=== PATIENT | male | born 1975 | race Caucasian/White ===

== ENCOUNTER 2016-12-13 14:23 | Emergency (ER) | payer OTHER ==
[2016-12-13] MEDS ORDERED: METHOCARBAMOL 500 MG TAB PO ONE (16:14)
[2016-12-13] MEDS ORDERED: SODIUM CHLORIDE 0.9% 1,000 ML IV ONE (16:14)
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
[2016-12-13 16:53] VITALS: RESP 18
[2016-12-13 16:53] LABS: Basophils # (A) 0.1 k/uL (0-0.2); Basophils % (A) 1 %; CHCM 33.5; Eosinophils # (A) 0.2 k/uL (0-0.7); Eosinophils % (A) 2 %; HCT 46.9 % (39.0-53.0); HDW 2.35; HGB 15.6 gm/dL (13.0-17.5); Luc # (Auto) 0.19; Luc % (Auto) 2; Lymphocytes # (A) 1.8 k/uL (1.0-4.8); Lymphocytes % (A) 23 %; MCH 31.9 pg (25.0-35.0); MCHC 33.3 g/dL (31.0-37.0); MCV 95.8 fL (80.0-100.0); Mean Platelet Volume 7.6; Monocytes # (A) 0.3 k/uL (0-1.0); Monocytes % (A) 4 %; Neutrophils # (A) 5.2 k/uL (1.3-7.7); Neutrophils % (A) 67 %; RBC 4.89 m/uL (4.30-5.90); RDW 13.7 % (11.5-15.5); WBC 7.8 k/uL (3.8-10.6)
[2016-12-13 17:04] LABS: Appearance,Urine Clear (Clear); Bilirubin,Urine Negative (Negative); Glucose,Urine (UA) Negative (Negative); Ketones,Urine Negative (Negative); Leukocyte Esterase,Urine Negative (Negative); Nitrite,Urine Negative (Negative); Protein,Urine Negative (Negative); Specific Gravity,Urine 1.012 (1.001-1.035); UA Billing (MACRO vs. MICRO) CHEM; Urobilinogen,Urine <2.0 mg/dL (<2.0)
[2016-12-13 17:05] LABS: ALT 42 U/L (21-72); AST 27 U/L (17-59); Alkaline Phosphatase 80 U/L (38-126); Anion Gap 9 mmol/L; Blood Urea Nitrogen 12 mg/dL (9-20); Carbon Dioxide 30 mmol/L (22-30); Chloride 104 mmol/L (98-107); Glucose 83 mg/dL (74-99); Magnesium 2.1 mg/dL (1.6-2.3); Non-African American GFR(MDRD) >60 (>60 ml/min/1.73 sqM); Potassium 4.1 mmol/L (3.5-5.1); Sodium 143 mmol/L (137-145); Total Bilirubin 0.5 mg/dL (0.2-1.3); Total Protein 7.5 g/dL (6.3-8.2)
--- NOTE | 2016-12-13 17:45 | US ---
EXAMINATION TYPE: US scrotum with doppler. Grayscale and color Doppler Duplex imaging performed of t kim scrotum. DATE OF EXAM: 12/13/2016 COMPARISON: NONE CLINICAL HISTORY: left testicular mass. left scrotal pain and swelling x 2 weeks EXAM MEASUREMENTS: TESTICLES: Right Testicle: 4.7 x 2.78 x 1.8 cm Left Testicle: 4.3 x 3.0 x 2.5 cm EPIDIDYMIS HEAD: Right Epididymis: 0.8 x 1.0 x 1.0 cm Left Epididymis: 2.7 x 2.4 x 2.7 cm Doppler performed to assess for testicular vascularity; good bilateral color flow and waveforms are s een. There is no evidence of testicular torsion. Presence of epididymal head cysts: in right head = 0.2 x 0.2 x 0.2cm and couple noted in left epididy mal head with larger = 2.5 x 2.5 x 2.5cm. Presence of hydroceles: in right scrotal sac = 3.3 x 2.4 x 1.4cm and in left scrotal sac = 2.2 x 2.6 x 0.6cm Presence of varicoceles: noted bilaterally as veins are > 0.25 cm in neutral position and with valsa lva maneuver IMPRESSION: No testicular torsion or mass. Large left epididymal cyst. Bilateral hydroceles. Mild neha ateral varicoceles.
[2016-12-13 18:29] VITALS: BP 130/90; PULSE 57; TEMP 98.2
== END 2016-12-13 18:29 | disposition home or self-care (01) ==
LOC: EC 14:23
DX: I86.1 Scrotal varices (principal); M62.830 Muscle spasm of back; N50.3 Cyst of epididymis; F17.200 Nicotine dependence, unspecified, uncomplicated
CPT/HCPCS: 36415; 76870; 80053; 81003; 83735; 84443; 85025; 93005; 93975; 96360; 99284

== ENCOUNTER 2019-05-17 10:20 | Inpatient (IN) | payer MEDICAID, OTHER ==
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
[2019-05-17] MEDS ORDERED: LORazepam 1 MG TAB PO STA (14:12)
[2019-05-17 14:51] LABS: Amphetamine Screen,Urine Not Detected (NotDetected); Barbiturate Screen,Urine Not Detected (NotDetected); Benzodiazepines Screen,Urine Not Detected (NotDetected); Cocaine Screen,Urine Not Detected (NotDetected); Methadone Screen, Urine Not Detected (NotDetected); Opiate Screen,Urine Not Detected (NotDetected); Oxycodone Screen, Urine Not Detected (NotDetected); Phencyclidine Screen,Urine Not Detected (NotDetected); Tricyclic Antidepressant,Urine Not Detected (NotDetected); Urn Cannabinoid Scrn Not Detected (NotDetected)
[2019-05-17] MEDS ORDERED: MAG HYDROX/AL HYDROX/SIMETH 30 ML CUP PO PRN (17:03)
[2019-05-17] MEDS ORDERED: MAGNESIUM HYDROXIDE 2,400 MG/10 ML CUP PO PRN (17:03)
[2019-05-17] MEDS: ZIPRASIDONE 20 MG VIAL IM PRN (19:13)
--- NOTE | 2019-05-17 20:14 | P.MDCNMH ---
History of Present Illness H&P Date: 05/17/19 Chief Complaint: suicidal ideation 44 year old male , denies any significant past medical history patient comes in due to suicidal ideation, he was planning on putting a gun to his head. patient admits to polysbstance abuse, with cocaine, street drugs vicodine , and alcohol, he drinks a fifth every day. He continues to work and has a supporting family, he wants to quit drug of abuse as its affecting his quality of life. he otherwise denies any mental health illness. he denies any chest pain, SOB, fever, or chills., denies any coughing , abd pain, nausea or vomiting. denies any GI bleeding currently he feels better, and denies any suicidal ideation at this time. Review of Systems full review of systems performed pertinent positive and negative as mentioned in HPI , otherwise negative Past Medical History Past Medical History: No Reported History Additional Past Medical History / Comment(s): head injury History of Any Multi-Drug Resistant Organisms: None Reported Past Surgical History: Orthopedic Surgery Additional Past Surgical History / Comment(s): fingers/hand, right shoulder, right leg, right collarbone, right ankle Past Psychological History: No Psychological Hx Reported Smoking Status: Current every day smoker Past Alcohol Use History: Abuse Past Drug Use History: Cocaine, Opiates, Prescription Drug Abuse - Past Family History family Additional Family Medical History / Comment(s): Diabetes and heart disease in his father Medications and Allergies Home Medications Medication Instructions Recorded Confirmed Type Ibuprofen [Motrin Ib] 200 - 800 mg PO Q6H PRN 05/17/19 05/17/19 History Allergies Allergy/AdvReac Type Severity Reaction Status Date / Time No Known Allergies Allergy Verified 05/17/19 17:33 Physical Exam Vitals: Vital Signs Temp Pulse Pulse Resp BP BP Pulse Ox 05/17/19 17:28 98.4 F 88 18 146/100 98 05/17/19 17:00 98.4 F 88 18 146/100 98 05/17/19 16:37 80 16 129/76 99 05/17/19 10:21 97.4 F L 71 22 139/107 100 Intake and Output 05/17/19 05/17/19 05/17/19 06:59 14:59 22:59 Other: Weight 65.771 kg 63.3 kg Constitutional: No acute distress, conversant, pleasant Eyes: Anicteric sclerae, moist conjunctiva, no lid-lag Pupils equal round reactive to light ENMT: NC/AT Oropharynx clear, no erythema, exudates Neck: Supple, FROM, no masses, or JVD No carotid bruits No thyromegaly Lungs: Clear to auscultation Clear to percussion Normal respiratory effort, no accessory muscle use Cardiovascular: Heart regular in rate and rhythm, No murmurs, gallops, or rubs No peripheral edema Abdominal: Soft Nontender, no guarding, rebound or rigidity Abdomen moving with respiration Normoactive bowel sounds No hepatomegaly, No splenomegaly No palpable mass No abdominal wall hernia noted Skin: Normal temperature, tone, texture, turgor No induration No subcutaneous nodules No rash, lesions No ulcers Extremities: No digital cyanosis No clubbing Pedal pulses intact and symmetrical Radial pulses intact and symmetrical No calf tenderness Psychiatric: Alert and oriented to person, place and time Appropriate affect fair judgement Neuro Muscles Strength 5/5 in all 4 extremities Sensation to light touch grossly present throughout Cranial nerves II-XII grossly intact No focal sensory deficits Lymphatics: no palpable cervical or supraclavicular , or inguinal lymph nodes Cranial Nerve Examination - Cranial Nerves Cranial Nerve II- Optic: Intact Cranial Nerve III- Oculomotor: Intact Cranial Nerve IV- Trochlear: Intact Cranial Nerve V- Trigeminal: Intact Cranial Nerve - Abducens: Intact Cranial Nerve VII- Facial: Intact Cranial Nerve VIII- Auditory: Intact Cranial Nerve IX- Glossopharyngeal: Intact Cranial Nerve X- Vagus: Intact Cranial Nerve XI- Accessory: Intact Cranial Nerve XII- Hypoglossal: Intact Assessment and Plan Assessment: 44-year-old male with significant past medical history presented for suicidal ideation and polysubstance abuse currently denies any medical complaints Plan: suicidal ideation Management per psych Polysubstance abuse Alcohol abuse Patient is trying to quit. Currently going through withdrawal from alcohol Continue with benzos when necessary per CIWA scale Elevated blood pressure without history of hypertension Continue to monitor closely this could be part of the autonomic dysfunction from alcohol withdrawal Blood pressure readings continues to be elevated we would consider starting patient on calcium channel salma Low risk for DVT patient is ambulatory Thank you for allowing us to participate in the care of this patient. We will follow peripherally. Do not hesitate to contact us with questions. Someone can be reached from the [facility] hospitalist group at all hours of the day at [phone].
[2019-05-17] MEDS: ACETAMINOPHEN TAB 325 MG TAB PO PRN (20:18)
[2019-05-17] MEDS: LORazepam 1 MG TAB PO PRN (20:42)
[2019-05-18 06:41] VITALS: TEMP 98.3
[2019-05-18 08:28] LABS: Basophils # (A) 0.1 k/uL (0-0.2); Basophils % (A) 1 %; Eosinophils # (A) 0.2 k/uL (0-0.7); Eosinophils % (A) 2 %; HCT 49.9 % (39.0-53.0); HGB 16.9 gm/dL (13.0-17.5); Lymphocytes # (A) 2.5 k/uL (1.0-4.8); Lymphocytes % (A) 40 %; MCH 32.9 pg (25.0-35.0); MCHC 33.8 g/dL (31.0-37.0); MCV 97.3 fL (80.0-100.0); Mean Platelet Volume 6.2; Monocytes # (A) 0.3 k/uL (0-1.0); Monocytes % (A) 5 %; Neutrophils # (A) 3.1 k/uL (1.3-7.7); Neutrophils % (A) 48 %; Platelet Count 213 k/uL (150-450); RBC 5.13 m/uL (4.30-5.90); RDW 13.1 % (11.5-15.5); WBC 6.4 k/uL (3.8-10.6)
[2019-05-18 08:38] LABS: ALT 44 U/L (21-72); AST 32 U/L (17-59); African American GFR (CKD) >90 (>60 ml/min/1.73 sqM); Albumin 4.5 g/dL (3.5-5.0); Alkaline Phosphatase 82 U/L (38-126); Anion Gap 9 mmol/L; Blood Urea Nitrogen 18 mg/dL (9-20); Calcium 10.2 mg/dL (8.4-10.2); Carbon Dioxide 26 mmol/L (22-30); Chloride 107 mmol/L (98-107); Cholesterol 204 mg/dL (<200); Glucose 101 mg/dL (74-99); HDL Cholesterol 69 mg/dL (40-60); LDL Cholesterol,Calculated 83 mg/dL (0-99); Potassium 4.5 mmol/L (3.5-5.1); Sodium 142 mmol/L (137-145); Total Bilirubin 1.3 mg/dL (0.2-1.3); Total Protein 7.5 g/dL (6.3-8.2); Triglycerides 260 mg/dL (<150)
[2019-05-18] MEDS: MULTIVITAMINS, THERA 1 EACH TAB PO SCH (08:52)
[2019-05-18] MEDS: FOLIC ACID 1 MG TAB PO SCH (08:52)
[2019-05-18] MEDS: LORazepam 1 MG TAB PO PRN ×3 (08:52→22:05)
[2019-05-18] MEDS: THIAMINE 100 MG TAB PO SCH (08:52)
[2019-05-18] MEDS: NICOTINE 14MG/24HR PATCH TRANSDERM SCH (08:52)
[2019-05-18] MEDS: ZIPRASIDONE 20 MG VIAL IM PRN (08:55)
[2019-05-18] MEDS: ACETAMINOPHEN TAB 325 MG TAB PO PRN (12:47)
--- NOTE | 2019-05-18 14:53 | P.HP ---
Psychiatric H&P - . H&P Date: 05/18/19 History & Physical: Allergies Allergy/AdvReac Type Severity Reaction Status Date / Time No Known Allergies Allergy Verified 05/17/19 17:33 Vital Signs Temp 98.3 F 05/18/19 06:40 Pulse 76 05/18/19 06:40 Resp 16 05/18/19 06:40 BP 134/78 05/18/19 06:40 Pulse Ox 98 05/18/19 06:40 Intake & Output 05/17/19 05/18/19 05/18/19 18:59 06:59 18:59 Weight 63.3 kg Laboratory Last Values WBC 6.4 k/uL (3.8-10.6) 05/18/19 07:52 RBC 5.13 m/uL (4.30-5.90) 05/18/19 07:52 Hgb 16.9 gm/dL (13.0-17.5) 05/18/19 07:52 Hct 49.9 % (39.0-53.0) 05/18/19 07:52 MCV 97.3 fL (80.0-100.0) 05/18/19 07:52 MCH 32.9 pg (25.0-35.0) 05/18/19 07:52 MCHC 33.8 g/dL (31.0-37.0) 05/18/19 07:52 RDW 13.1 % (11.5-15.5) 05/18/19 07:52 Plt Count 213 k/uL (150-450) 05/18/19 07:52 Neutrophils % 48 % 05/18/19 07:52 Lymphocytes % 40 % 05/18/19 07:52 Monocytes % 5 % 05/18/19 07:52 Eosinophils % 2 % 05/18/19 07:52 Basophils % 1 % 05/18/19 07:52 Neutrophils # 3.1 k/uL (1.3-7.7) 05/18/19 07:52 Lymphocytes # 2.5 k/uL (1.0-4.8) 05/18/19 07:52 Monocytes # 0.3 k/uL (0-1.0) 05/18/19 07:52 Eosinophils # 0.2 k/uL (0-0.7) 05/18/19 07:52 Basophils # 0.1 k/uL (0-0.2) 05/18/19 07:52 Sodium 142 mmol/L (137-145) 05/18/19 07:52 Potassium 4.5 mmol/L (3.5-5.1) 05/18/19 07:52 Chloride 107 mmol/L (98-107) 05/18/19 07:52 Carbon Dioxide 26 mmol/L (22-30) 05/18/19 07:52 Anion Gap 9 mmol/L 05/18/19 07:52 BUN 18 mg/dL (9-20) 05/18/19 07:52 Creatinine 0.84 mg/dL (0.66-1.25) 05/18/19 07:52 Est GFR (CKD-EPI)AfAm >90 (>60 ml/min/1.73 sqM) 05/18/19 07:52 Est GFR (CKD-EPI)NonAf >90 (>60 ml/min/1.73 sqM) 05/18/19 07:52 Glucose 101 mg/dL (74-99) H 05/18/19 07:52 Calcium 10.2 mg/dL (8.4-10.2) 05/18/19 07:52 Total Bilirubin 1.3 mg/dL (0.2-1.3) 05/18/19 07:52 AST 32 U/L (17-59) 05/18/19 07:52 ALT 44 U/L (21-72) 05/18/19 07:52 Alkaline Phosphatase 82 U/L (38-126) 05/18/19 07:52 Total Protein 7.5 g/dL (6.3-8.2) 05/18/19 07:52 Albumin 4.5 g/dL (3.5-5.0) 05/18/19 07:52 Triglycerides 260 mg/dL (<150) H 05/18/19 07:52 Cholesterol 204 mg/dL (<200) H 05/18/19 07:52 LDL Cholesterol, Calc 83 mg/dL (0-99) 05/18/19 07:52 HDL Cholesterol 69 mg/dL (40-60) H 05/18/19 07:52 TSH 1.680 mIU/L (0.465-4.680) 05/18/19 07:52 Urine Opiates Screen Not Detected (NotDetected) 05/17/19 13:33 Ur Oxycodone Screen Not Detected (NotDetected) 05/17/19 13:33 Urine Methadone Screen Not Detected (NotDetected) 05/17/19 13:33 Ur Propoxyphene Screen Not Detected (NotDetected) 05/17/19 13:33 Ur Barbiturates Screen Not Detected (NotDetected) 05/17/19 13:33 U Tricyclic Antidepress Not Detected (NotDetected) 05/17/19 13:33 Ur Phencyclidine Scrn Not Detected (NotDetected) 05/17/19 13:33 Ur Amphetamines Screen Not Detected (NotDetected) 05/17/19 13:33 U Methamphetamines Scrn Not Detected (NotDetected) 05/17/19 13:33 U Benzodiazepines Scrn Not Detected (NotDetected) 05/17/19 13:33 Urine Cocaine Screen Not Detected (NotDetected) 05/17/19 13:33 U Marijuana (THC) Screen Not Detected (NotDetected) 05/17/19 13:33 05/18/19 14:43 IDENTIFYING DATA: Patient is a 44-year-old male who currently lives in a house with roommates has one daughter is single unmarried 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 HPI: Patient presented to the hospital with a complaint of having suicidal ideations and having put a gun to his head 2 days prior which was loaded. Patient has a chronic history of alcohol abuse drinking approximately 1 pint of vodka per day. Patient also has a DUI in the past and has his car with a ace thalyzer in it. Patient states that he's been drinking heavily and has been feeling depressed for many months and claims that he wanted to end his life however states that it was a fleeting thought and was minimizing the incident where he pulled the gun to his head which was loaded. He claims that after he put it to his head he thought about his daughter his sister and his girlfriend and stated that he had too much to lose and told his roommate to take away his gun. Patient came to the hospital to get help and possibly go to rehab afterwards. Patient states that his last drink was yesterday morning. He claims that he is feeling mild withdrawal symptoms at this time including anxiety and agitation however denies any tremors or diaphoresis or palpitations. He denies any seizures or symptoms of DTs. At this time patient states that his sleep is poor chronically and has been drinking himself to sleep. Patient denies any suicidal or homicidal ideations intent or plan. At this time patient denies any auditory or visual hallucinations. Patient denies any flight of ideas racing thoughts and increased in goal directed behavior. Patient admits to using opiates in the past however has been sober for over 2 months. Patient continues to drink alcohol and use cigarettes daily. PAST PSYCHIATRIC HISTORY: Patient states that he was once admitted to an inpatient psych facility in [place] approximately 7 years ago however claims that it was for substance related problems. He denies being on any psychiatric medications. He denies any psychiatric outpatient follow-up. He de nies any suicide attempts in the past. PMH:denies ALLERGIES: as per EMR CHEMICAL DEPENDENCY HISTORY: as per HPI FAMILY PSYCHIATRIC/SUBSTANCE USE HISTORY: denies SOCIAL HISTORY: He states that he was born and raised in [place] and his family moved to [facility]. 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 MENTAL STATUS EXAM: General Appearance: Patient appears to be stated age is tall and thin, alert, and directable. Marginal hygiene and grooming. Behavior: Patient is calmly seated without any agitated behavior. Speech: Patient's speech is fluent and nonpressured. Mood/Affect: Patient reports their mood is depressed, affect is congruent and constricted. Suicidality/Homicidality: Patient denies having any suicidal or homicidal ideation intent or plan. Perceptions: Patient denies any auditory or visual hallucinations. Though content/process: There is no evidence of any delusional thought content and thought process is linear and goal-directed. Patient is preoccupied with discharge. Memory and concentration: AOX3, grossly intact for the purposes of this session. Can spell "WORLD" backwards Judgment and insight: poor STRENGTHS/WEAKNESSES: strength is that patient is resilient, weaknesses that patient has a long history of alcohol abuse and other substances. INTELLECT: average IMPRESSIONS: Depressive disorder unspecified rule out alcohol induced mood disorder. Alcohol use disorder, moderate-severe, currently in withdrawal Opiate use disorder, currently in early remission PLAN: -Patient is admitted under voluntary status to [facility] for stabilization of psychiatric symptoms and safety. Patient signed adult voluntary form and medication consent and is placed in patient's chart. -Medications : Will start patient on Zoloft 50 mg daily for anxiety/mood. Will start patient on trazodone 50 mg nightly for mood/insomnia. These medications can be increased as tolerated over the weekend. Will place patient on Librium 25 mg 3 times a day for alcohol withdrawal. -CIWA every 6 hours for alcohol withdrawal. Continue to monitor vital signs. -Ativan and Geodon PRN for agitation/aggression -Started thiamine, MVM for etoh use -Patient was counselled on substance abuse and desired to cut back on use -Patient was informed of the risks, benefits and side effects of the medication and patient verbally consented to taking the medications. Patient signed med consent form and was placed in chart. -NRT - nicotine patch - on board for discharge planning 05/18/19 14:52
[2019-05-18 15:03] LABS: Hemoglobin A1C 5.4 % (4.0-6.0)
[2019-05-18] MEDS: SERTRALINE 50 MG TAB PO SCH (15:11)
[2019-05-18] MEDS: chlordiazePOXIDE 25 MG CAP PO SCH ×2 (16:39→22:05)
[2019-05-18] MEDS: traZODone HCL 50 MG TAB PO SCH (21:05)
[2019-05-19] MEDS: ZIPRASIDONE 20 MG VIAL IM PRN ×2 (00:11→23:31)
[2019-05-19] MEDS ORDERED: LORazepam 1 MG TAB PO STA (01:46)
[2019-05-19] MEDS: chlordiazePOXIDE 25 MG CAP PO SCH ×3 (10:29→21:45)
[2019-05-19] MEDS: NICOTINE 14MG/24HR PATCH TRANSDERM SCH (11:27)
[2019-05-19] MEDS: FOLIC ACID 1 MG TAB PO SCH (11:27)
--- NOTE | 2019-05-19 11:27 | P.PN ---
Progress Note - Text Interval history: The patient is found in his room he follows me to an interview room. He indicates his mood is tired. He states he did not sleep last night. I was called late last evening as he was complaining about the intensity of the withdrawal he was given more Ativan. We reviewed his psychotropic medications and discussed the purpose of the Librium. He had no questions regarding that medication or Zoloft. He states he attended some groups but has been missing some as well. He did eat breakfast this morning. He reported he had not been eating for approximately 3 days. He indicates he's been drinking a half to a full fifth daily for the last year. He has no intentions of attending inpatient chemical dependency treatment he states he is able to simply decide he is not going to drink anymore. Mental status exam: The patient is a thin male he is alert he is dressed in his own clothing he has a disheveled appearance. Eye contact is appropriate. He states his mood is tired he reports he hates it here. He is reporting no suicidal ideation intent or plan. He is reporting no homicidal ideation intent or plan. Speech is fluent spontaneous fairly blunted at times. He has a mildly irritable quality. He reports no auditory or visual hallucinations or specific delusions. He does not appear to be experiencing symptoms of psychosis. He does not appear hypomanic or manic. Insight and judgment limited. Plan: The patient will continue on the Zoloft as written. We will continue to use the Librium and we will taper him off of that when possible. We will continue to follow his CIWA scores. He is encouraged to participate in his activities of daily living and groups. He requires continued psychiatric hospitalization for further stabilization.
[2019-05-19] MEDS: SERTRALINE 50 MG TAB PO SCH (11:28)
[2019-05-19] MEDS: MULTIVITAMINS, THERA 1 EACH TAB PO SCH (11:28)
[2019-05-19] MEDS: THIAMINE 100 MG TAB PO SCH (11:29)
[2019-05-19] MEDS: LORazepam 1 MG TAB PO PRN ×2 (11:31→18:29)
[2019-05-19] MEDS: traZODone HCL 50 MG TAB PO SCH (21:45)
[2019-05-20] MEDS: LORazepam 1 MG TAB PO PRN ×3 (00:25→20:42)
[2019-05-20] MEDS: FOLIC ACID 1 MG TAB PO SCH (09:04)
[2019-05-20] MEDS: chlordiazePOXIDE 25 MG CAP PO SCH ×2 (09:04→20:41)
[2019-05-20] MEDS: NICOTINE 14MG/24HR PATCH TRANSDERM SCH (09:05)
[2019-05-20] MEDS: THIAMINE 100 MG TAB PO SCH (09:05)
[2019-05-20] MEDS: MULTIVITAMINS, THERA 1 EACH TAB PO SCH (09:05)
[2019-05-20] MEDS: SERTRALINE 50 MG TAB PO SCH (09:05)
[2019-05-20] MEDS: ACETAMINOPHEN TAB 325 MG TAB PO PRN (12:16)
--- NOTE | 2019-05-20 13:28 | P.PN ---
Progress Note - Text Interval history: The patient is found in the hallway follows me to an interview room. He reports that his mood is stabilizing. We reviewed his medications. He states he'll feel anxious at times and is having some problems sleeping. He was able to recognize that he needed to get out of bed during the day and he has been attending more groups today. We discussed titrating the trazodone further. CIWA scores reviewed vital signs reviewed they're within normal limits. The patient continues to feel he does not need inpatient chemical dependency treatment. He is looking forward to a visit this evening from his girlfriend. Mental status exam: The patient is alert he is a thin male appearing his stated age. Hygiene and grooming are adequate. Eye contact is appropriate speech is fluent spontaneous nonpressured. He is reporting no suicidal ideation intent or plan. He is reporting no homicidal ideation intent or plan. He endorses no auditory or visual hallucinations or specific delusions. He demonstrates no verbal or physical aggressiveness. He demonstrates no involuntary repetitive movements. Insight and judgment improving. He is oriented to person place and date. He demonstrates future oriented thinking. Plan: The patient appears to be clinically stabilizing. We will continue his medications as written I will titrate the trazodone 100 mg at bedtime. We will monitor him for safety and encourage participation in the milieu.
[2019-05-20] MEDS ORDERED: traZODone HCL 100 MG TAB PO SCH (21:00)
[2019-05-20] MEDS: ZIPRASIDONE 20 MG VIAL IM PRN ×2 (22:41→22:51)
[2019-05-21] MEDS: THIAMINE 100 MG TAB PO SCH (08:32)
[2019-05-21] MEDS: NICOTINE 14MG/24HR PATCH TRANSDERM SCH (08:32)
[2019-05-21] MEDS: SERTRALINE 50 MG TAB PO SCH (08:32)
[2019-05-21] MEDS: MULTIVITAMINS, THERA 1 EACH TAB PO SCH (08:32)
[2019-05-21] MEDS: FOLIC ACID 1 MG TAB PO SCH (08:32)
[2019-05-21] MEDS: chlordiazePOXIDE 25 MG CAP PO SCH (08:33)
[2019-05-21] MEDS ORDERED: SERTRALINE 50 MG TAB PO STA (10:02)
--- NOTE | 2019-05-21 10:12 | P.PN ---
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 Patient appeared to be directable and cooperative this morning however stated that he had poor sleep last night and the night before and states that he will lay in bed and not sleep for 3-4 hours. He states that he is previously been on 300 mg dose of trazodone which is helped him in the past. Patient claims that he initially was having some benefit on the Zoloft at 50 mg however was requesting an increase to help with his anxiety and mood. Patient claims that he has been speaking to his girlfriend who was very happy for him to be in the hospital and getting help that he needs. Patient continues to speak about wanting to cut back on alcohol and stay sober on his own and declines any community resources or inpatient rehab at this time. Patient was preoccupied with discharge and asked several times about when he could leave. 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 Patient states that he's been going to groups and finding helpful. At this time patient denies any suicidal or homical ideations, intent or plan. Patient denies any auditory, visual hallucinations and denies any paranoia or delusions. Patient denies any side effects from the medications and has been compliant with meds. At this time patient denies any alcohol withdrawal symptoms or cravings. Mental Status Exam: General Appearance: Patient appears to be stated age is tall and thin, alert, and directable. Fair hygiene and grooming. Behavior: Patient is calmly seated without any agitated behavior. Speech: Patient's speech is fluent and nonpressured. Mood/Affect: Patient reports their mood is improved, affect is congruent and constricted. Suicidality/Homicidality: Patient denies having any suicidal or homicidal ideation intent or plan. Perceptions: Patient denies any auditory or visual hallucinations. Though content/process: There is no evidence of any delusional thought content and thought process is linear and goal-directed. Patient is preoccupied with discharge and potentially losing his job. Memory and concentration: AOX3, grossly intact for the purposes of this session. Judgment and insight: Fair, improving mildly. Assessment Depressive disorder unspecified rule out alcohol induced mood disorder. Alcohol use disorder, moderate-severe, currently in withdrawal Opiate use disorder, currently in early remission Plan: -Patient continues to meet criteria for inpatient psychiatric admission for symptom stabilization and safety. Patient has signed adult voluntary form and medication consent and was placed in patient's chart. -Medications: Will increase Zoloft to 100 mg daily for anxiety/mood. Will increase trazodone to 200 mg nightly for mood/insomnia. We'll continue titrating down Librium for alcohol withdrawal. Plan will be to give the last dose of 25 mg tomorrow. -CIWA every 6 hours for alcohol withdrawal. Continue to monitor vital signs. -thiamine, MVM for etoh use -When necessary Geodon and Ativan for agitation/aggression. -NRT - nicotine patch -SW on board for discharge planning. Plan for discharge tomorrow back home. Patient declined medications for alcohol cravings and declined any community resources or inpatient substance use rehab.
[2019-05-21] MEDS ORDERED: ACETAMINOPHEN TAB 325 MG TAB PO PRN (12:18)
[2019-05-21] MEDS: IBUPROFEN 800 MG TAB PO PRN ×2 (12:24→22:42)
[2019-05-21] MEDS: LORazepam 1 MG TAB PO PRN (14:57)
[2019-05-21] MEDS ORDERED: CYCLOBENZAPRINE 5 MG TAB PO STA (17:13)
[2019-05-21] MEDS ORDERED: guaiFENesin 600 MG TABLET.ER PO PRN (19:32)
[2019-05-21] MEDS: LORATADINE 10 MG TAB PO SCH (20:18)
[2019-05-21] MEDS ORDERED: traZODone HCL 100 MG TAB PO SCH (21:00)
[2019-05-21] MEDS ORDERED: chlordiazePOXIDE 25 MG CAP PO SCH (21:00)
[2019-05-22] MEDS: LORATADINE 10 MG TAB PO SCH (08:51)
[2019-05-22] MEDS: THIAMINE 100 MG TAB PO SCH (08:52)
[2019-05-22] MEDS: IBUPROFEN 800 MG TAB PO PRN (08:53)
[2019-05-22] MEDS: NICOTINE 14MG/24HR PATCH TRANSDERM SCH (08:54)
[2019-05-22] MEDS: FOLIC ACID 1 MG TAB PO SCH (08:54)
[2019-05-22] MEDS: MULTIVITAMINS, THERA 1 EACH TAB PO SCH (08:54)
[2019-05-22] MEDS ORDERED: chlordiazePOXIDE 25 MG CAP PO SCH (09:00)
[2019-05-22] MEDS ORDERED: SERTRALINE 100 MG TAB PO SCH (09:00)
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
[2019-05-22 10:58] VITALS: RESP 16
[2019-05-22 11:01] VITALS: BP 128/68; PULSE 95
[2019-05-22] MEDS ORDERED: SUMAtriptan SUCCINATE 50 MG TAB PO STA (11:30)
[2019-05-22] MEDS: LORazepam 1 MG TAB PO PRN (12:05)
[2019-05-22] MEDS ORDERED: hydrOXYzine PAMOATE 25 MG CAP PO PRN (12:14)
[2019-05-22] MEDS ORDERED: traZODone HCL 100 MG TAB PO SCH (21:00)
== END 2019-05-22 14:01 | disposition home or self-care (01) | DRG 881 ==
LOC: EC 10:20 → 3MHU 16:34
PROVIDERS: ADMIT Psychiatry & Neurology Psychiatry; ATTEND Psychiatry & Neurology Psychiatry
DX: F32.9 Major depressive disorder, single episode, unspecified (principal); R45.851 Suicidal ideations; F10.239 Alcohol dependence with withdrawal, unspecified; F10.229 Alcohol dependence with intoxication, unspecified; R03.0 Elevated blood-pressure reading, without diagnosis of hypertension; G47.00 Insomnia, unspecified; F41.9 Anxiety disorder, unspecified; F11.11 Opioid abuse, in remission; F17.210 Nicotine dependence, cigarettes, uncomplicated; Z71.6 Tobacco abuse counseling; Z87.820 Personal history of traumatic brain injury; Z98.890 Other specified postprocedural states; Z83.3 Family history of diabetes mellitus; Z82.49 Family history of ischemic heart disease and other diseases of the circulatory system
CPT/HCPCS: 80053; 80061; 80306; 82075; 83036; 84443; 85025; 99285

== ENCOUNTER 2020-01-01 19:08 | Inpatient (IN) | payer OTHER ==
[2020-01-01 20:15] LABS: Amphetamine Screen,Urine Not Detected (NotDetected); Barbiturate Screen,Urine Not Detected (NotDetected); Benzodiazepines Screen,Urine Not Detected (NotDetected); Cocaine Screen,Urine Not Detected (NotDetected); Methadone Screen, Urine Not Detected (NotDetected); Opiate Screen,Urine Not Detected (NotDetected); Oxycodone Screen, Urine Not Detected (NotDetected); Phencyclidine Screen,Urine Not Detected (NotDetected); Tricyclic Antidepressant,Urine Not Detected (NotDetected); Urn Cannabinoid Scrn Not Detected (NotDetected)
--- NOTE | 2020-01-02 00:15 | ED ---
Psych HPI <Kirk Gamboa - Last Filed: 01/02/20 12:01> <Gio Nevarez - Last Filed: 01/02/20 12:35> - General Source: patient Mode of arrival: ambulatory <Sonia Nichols - Last Filed: 01/08/20 14:54> - General Chief Complaint: Psychiatric Symptoms Stated Complaint: petitioned Time Seen by Provider: 01/01/20 19:15 - History of Present Illness Initial Comments: The patient is a 44-year-old male with history of polysubstance abuse who presents to the emergency department on a pickup order. Order states that police have been called to the patient's residence the last 2 days for suicidal threats. The patient denies this. States that he is not suicidal or homicidal. No hallucinations. States that he drank a couple beers today but denies use of any illicit substances. Patient denies knowing why police picked him up. He is cooperative. No other alleviating, precipitating or modifying factors (Sonia Nichols) - Related Data Home Medications Medication Instructions Recorded Confirmed Glucosamine Sulfate 1,000 mg PO DAILY 01/01/20 01/01/20 Ibuprofen [Motrin Ib] 1,200 mg PO Q8H PRN 01/01/20 01/01/20 Previous Rx's Medication Instructions Recorded Cyclobenzaprine [Flexeril] 5 mg PO BID PRN #60 tab 01/07/20 Nicotine 14Mg/24Hr Patch [Habitrol] 1 patch TRANSDERM DAILY patch 01/07/20 Allergies Allergy/AdvReac Type Severity Reaction Status Date / Time No Known Allergies Allergy Verified 01/01/20 22:17 Review of Systems ROS Other: All systems not noted in ROS Statement are negative. <Kirk Gamboa - Last Filed: 01/02/20 12:01> ROS Other: All systems not noted in ROS Statement are negative. <Gio Nevarez - Last Filed: 01/02/20 12:35> ROS Other: All systems not noted in ROS Statement are negative. <Sonia Nichols - Last Filed: 01/08/20 14:54> ROS Statement: Those systems with pertinent positive or pertinent negative responses have been documented in the HPI. Past Medical History Past Medical History: No Reported History Additional Past Medical History / Comment(s): head injury History of Any Multi-Drug Resistant Organisms: None Reported Past Surgical History: Orthopedic Surgery Additional Past Surgical History / Comment(s): fingers/hand, right shoulder, right leg, right collarbone, right ankle Past Psychological History: No Psychological Hx Reported Smoking Status: Current every day smoker - Past Family History family Additional Family Medical History / Comment(s): Diabetes and heart disease in his father <Sonia Nichols - Last Filed: 01/08/20 14:54> General Exam Limitations: no limitations General appearance: alert, in no apparent distress Head exam: Present: atraumatic, normocephalic, normal inspection Eye exam: Present: normal appearance, PERRL, EOMI. Absent: scleral icterus, conjunctival injection, periorbital swelling ENT exam: Present: normal exam, mucous membranes moist Neck exam: Present: normal inspection. Absent: tenderness, meningismus, lympha denopathy Respiratory exam: Present: normal lung sounds bilaterally. Absent: respiratory distress, wheezes, rales, rhonchi, stridor Cardiovascular Exam: Present: regular rate, normal rhythm, normal heart sounds. Absent: systolic murmur, diastolic murmur, rubs, gallop, clicks GI/Abdominal exam: Present: soft, normal bowel sounds. Absent: distended, tenderness, guarding, rebound, rigid Extremities exam: Present: normal inspection, full ROM, normal capillary refill. Absent: tenderness, pedal edema, joint swelling, calf tenderness Back exam: Present: normal inspection Neurological exam: Present: alert, oriented X3, CN II-XII intact Psychiatric exam: Present: normal affect, normal mood Skin exam: Present: warm, dry, intact, normal color. Absent: rash <Sonia Nichols - Last Filed: 01/08/20 14:54> Course <Gio Nevarez - Last Filed: 01/02/20 12:35> Vital Signs 01/01/20 01/02/20 19:13 07:15 Temperature 98 F Pulse Rate 97 81 Respiratory 18 16 Rate Blood Pressure 165/106 144/88 O2 Sat by Pulse 98 99 Oximetry - Reevaluation(s) Reevaluation #1: 01/02/20 12:35 Patient rested comfortably throughout the morning the patient came in with depression and suicidal ideation. Review the petition I did fill out a clinical certification. The patient will be admitted (Gio Nevarez) Medical Decision Making - Lab Data Result diagrams: 01/03/20 08:13 01/03/20 08:13 <Sonia Nichols - Last Filed: 01/08/20 14:54> - Medical Decision Making Upon arrival patient placed into room 15. A thorough history and physical exam is performed. Patient does have an alcohol level of 186. Patient will be sober at 1:30 AM. Patient is agreeable to wait until this time to be evaluated by social work. Patient will be signed out to Dr. Cordova. (Sonia Nichols) - Lab Data Lab Results 01/01/20 Range/Units 19:53 Urine Opiates Screen Not Detected (NotDetected) Ur Oxycodone Screen Not Detected (NotDetected) Urine Methadone Screen Not Detected (NotDetected) Ur Propoxyphene Screen Not Detected (NotDetected) Ur Barbiturates Screen Not Detected (NotDetected) U Tricyclic Antidepress Not Detected (NotDetected) Ur Phencyclidine Scrn Not Detected (NotDetected) Ur Amphetamines Screen Not Detected (NotDetected) U Methamphetamines Scrn Not Detected (NotDetected) U Benzodiazepines Scrn Not Detected (NotDetected) Urine Cocaine Screen Not Detected (NotDetected) U Marijuana (THC) Screen Not Detected (NotDetected) Disposition <Kirk Gamboa - Last Filed: 01/02/20 12:01> <Gio Nevarez - Last Filed: 01/02/20 12:35> <Sonia Nichols - Last Filed: 01/08/20 14:54> Clinical Impression: Depression, Suicidal ideation Disposition: TRANSFER TO PSYCH HOSP/UNIT Condition: Stable
[2020-01-02] MEDS ORDERED: PANTOPRAZOLE 40 MG TABLET PO STA (07:19)
[2020-01-02] MEDS ORDERED: IBUPROFEN 800 MG TAB PO STA (10:49)
[2020-01-02] MEDS ORDERED: MAG HYDROX/AL HYDROX/SIMETH 30 ML CUP PO PRN (16:01)
[2020-01-02] MEDS ORDERED: MAGNESIUM HYDROXIDE 2,400 MG/10 ML CUP PO PRN (16:01)
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
[2020-01-02] MEDS: IBUPROFEN 600 MG TAB PO PRN (18:55)
[2020-01-02] MEDS ORDERED: LORazepam 1 MG TAB PO STA (18:59)
[2020-01-02] MEDS ORDERED: CALCIUM CARBONATE 500 MG CHEWABLE PO PRN (19:00)
[2020-01-02] MEDS: NICOTINE 14MG/24HR PATCH TRANSDERM SCH (19:12)
[2020-01-02] MEDS ORDERED: LORazepam 1 MG TAB PO SCH (21:00)
[2020-01-02] MEDS: LORazepam 0.5 MG TAB PO PRN (21:28)
[2020-01-03] MEDS: IBUPROFEN 600 MG TAB PO PRN ×2 (02:58→11:02)
[2020-01-03] MEDS: PANTOPRAZOLE 40 MG TABLET PO SCH (07:17)
[2020-01-03 08:47] LABS: Basophils % (A) 1 %; Eosinophils # (A) 0.2 k/uL (0-0.7); Eosinophils % (A) 4 %; HCT 49.8 % (39.0-53.0); HGB 16.4 gm/dL (13.0-17.5); Lymphocytes # (A) 1.7 k/uL (1.0-4.8); Lymphocytes % (A) 26 %; MCH 33.6 pg (25.0-35.0); MCHC 32.9 g/dL (31.0-37.0); MCV 101.9 fL (80.0-100.0); Macrocytosis Slight; Mean Platelet Volume 7.7; Monocytes # (A) 0.5 k/uL (0-1.0); Monocytes % (A) 7 %; Neutrophils # (A) 3.9 k/uL (1.3-7.7); Neutrophils % (A) 59 %; Platelet Count 190 k/uL (150-450); RBC 4.89 m/uL (4.30-5.90); RDW 14.4 % (11.5-15.5); WBC 6.6 k/uL (3.8-10.6)
[2020-01-03] MEDS: LORazepam 0.5 MG TAB PO PRN ×2 (09:00→21:33)
[2020-01-03] MEDS ORDERED: chlordiazePOXIDE 25 MG CAP PO SCH (09:00)
[2020-01-03] MEDS ORDERED: NICOTINE 14MG/24HR PATCH TRANSDERM SCH (09:00)
[2020-01-03] MEDS: NICOTINE 14MG/24HR PATCH TRANSDERM SCH (09:00)
[2020-01-03 09:26] LABS: ALT 58 U/L (4-49); AST 80 U/L (17-59); African American GFR (CKD) >90 (>60 ml/min/1.73 sqM); Albumin 4.9 g/dL (3.5-5.0); Alkaline Phosphatase 99 U/L (38-126); Anion Gap 12 mmol/L; Blood Urea Nitrogen 18 mg/dL (9-20); Calcium 10.2 mg/dL (8.4-10.2); Carbon Dioxide 27 mmol/L (22-30); Chloride 98 mmol/L (98-107); Cholesterol 182 mg/dL (<200); Glucose 104 mg/dL (74-99); HDL Cholesterol 92 mg/dL (40-60); LDL Cholesterol,Calculated 19 mg/dL (0-99); Non-African American GFR(CKD) >90 (>60 ml/min/1.73 sqM); Potassium 3.8 mmol/L (3.5-5.1); Sodium 137 mmol/L (137-145); Total Bilirubin 1.6 mg/dL (0.2-1.3); Total Protein 8.1 g/dL (6.3-8.2); Triglycerides 353 mg/dL (<150)
[2020-01-03] MEDS ORDERED: chlordiazePOXIDE 25 MG CAP PO STA (10:56)
[2020-01-03] MEDS: chlordiazePOXIDE 25 MG CAP PO SCH ×3 (13:47→21:34)
--- NOTE | 2020-01-03 13:53 | P.HP ---
Psychiatric H&P - . H&P Date: 01/03/20 History & Physical: IDENTIFYING DATA: He is a 45-year-old single male [facility] order. His mother completed the petition that read "called several friends (over 12 friends and relatives) saying gretchene and he is not going to make it to the age of 45. Continued to say he does not want to live and will commit suicide." HISTORY OF PRESENT ILLNESS: This is his second admission to our unit; the last was in May 2019 when she presented with history of alcohol use disorder, depression and suicidal ideation. He continued to drink after discharge. He described an increase of his alcohol use over the last 2 weeks where he was consuming at least 1/5 of liquor per day. It was during this dorsey when he began calling friends and family and expressing suicidal ideation. During this interview he was ambivalent about the intent of the suicidal thoughts alleging that he was "95% sure" that the thoughts were the result of his intoxication. He attributed the increase of alcohol use to several stresses. He was laid off from work in September as result of the epidemic. He was unable to pay his rent and was evicted last month. Since he lost his apartment he's been living friends, family and "sleeping in my car." He complained about financial problems since he lost his job. He is recently working for his [employer] service and is paid only when they work. He has had multiple driving under influence citations and has been required to maintain an alcohol monitoring system in his car. He complained that he is unable to afford the monthly fee for the system. During our interview he complained of alcohol withdrawal symptoms including nausea, vomiting, sweating and increasing anxiety. He denied having tactile, auditory or visual disturbances. He minimizes severity of his suicidal thoughts and suicidal expressions. He denied a need for substance abuse treatment and is not interested in either residential or outpatient treatment. Similarly, he has no interest in participating in Alcoholics Anonymous. His breath alcohol level was 0.186 in his UDS was negative for drugs of abuse. PAST PSYCHIATRIC HISTORY: This is his third admission to a psychiatric unit. As mentioned above he was discharged from our unit in May 2019 with the diagnosis of depression, alcohol use disorder and opiate use disorder. He's also had one prior admission to a psychiatric facility in [place] and he alleged was also related to his alcohol use. He is not taking any psychotropic medication and is not involved in outpatient mental health services. PAST MEDICAL HISTORY: Hospitalist consult appreciated. ALLERGIES: NO KNOWN DRUG ALLERGIES SUBSTANCE USE HISTORY:. Began using alcohol when he was 15 years old. He alleged that his father was and alcoholic and would buy for him and his friends alcohol. He is had several court ordered alcohol treatment programs and only participated in substance abuse treatment when he was court ordered. FAMILY PSYCHIATRIC/SUBSTANCE USE HISTORY: His father had an alcohol use disorder. He alleged that his father with drink at least 1 gallon of whiskey per day LEGAL HISTORY: He has a long and complicated legal history. He alleged that he was either in custodial, [facility] or [employer] from ages [age]. He's been arrested on several occasions and past charges include multiple DUIs as well as assault. SOCIAL HISTORY: His born and raised in [place] and his family moved to [place]. He is single and has 1 child out of wedlock. He has minimal contact with this child. He was arrested when he was high school and received his GED when he was in custodial. 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 He currently has no stable housing. MENTAL STATUS EXAM: He presented as a thin 44-year-old male who was pleasant on approach. He made eye contact and attended the interview. He had no distinguishing features or prominent physical abnormalities. He had a anxious facial expression. He was alert and oriented to person, place and time. He is not restlessness or agitated. His speech was spontaneous with decreased rate and rhythm. His affect was anxious, depressed but appropriate. He denied current suicidal ideation or wishes. He denied homicidal ideation. He did not express feelings of hopelessness or helplessness. He ruminated about his financial problems. He did not express ideas reference, paranoid ideation or delusional thoughts. Her thinking was concrete because associations were logical coherent. He denied hallucinations and did not appear to be responding to internal stimuli. Global impression of intellect is average to below. He is aware of his substance abuse problems shows no interest or motivation for treatment. His most recent CIWA was 20 consistent with severe alcohol withdrawal symptoms. STRENGTHS: Supportive family, good physical health WEAKNESSES: Chronic alcohol use problems, unstable housing, unstable employment, unstable income IMPRESSION: He is a 45-year-old male with long history of alcohol use disorder who presents to the unit involuntarily with history of increasing suicidal thoughts in context of increased alcohol use. His alcohol use to increase the result of multiple psychosocial problems including lack of employment, lack of income and housing difficulties. He is having severe alcohol withdrawal symptoms that for now or not complicated by delirium or psychosis. He has no interest in referral for either residential or outpatient substance abuse treatment. He should be treated as an inpatient basis with a combination of psychopharmacology and multimodal therapy. PRINCIPLE DIAGNOSIS: Alcohol induced mood disorder, alcohol use disorder severe dependence, alcohol withdrawal, rule out alcohol withdrawal delirium RECOMMENDATION: Admitted to the psychiatric unit. Proceed with involuntary hospitalization. Safety precautions. Social work to complete initial psychosocial assessment and coordinate discharge and aftercare services. Librium 50 mg by mouth 4 times a day for alcohol withdrawal symptoms and taper on a daily basis. Geodon 20 mg IM twice a day when necessary for agitation acute psychosis. Monitor for signs and symptoms of delirium. If he develops severe alcohol withdrawal symptoms we'll need to transfer him to medicine service. Encourage participation in therapeutic groups and activities as tolerated. Evaluate clinical status response to treatment daily basis. Allergies Allergy/AdvReac Type Severity Reaction Status Date / Time No Known Allergies Allergy Verified 01/01/20 22:17 Vital Signs Temp 98.0 F 01/03/20 05:19 Pulse 114 H 01/03/20 10:31 Resp 20 01/03/20 10:31 BP 154/119 01/03/20 10:31 Pulse Ox 98 01/03/20 10:31 Intake & Output 01/02/20 01/03/20 01/03/20 18:59 06:59 18:59 Weight 66.7 kg Laboratory Last Values WBC 6.6 k/uL (3.8-10.6) 01/03/20 08:13 RBC 4.89 m/uL (4.30-5.90) 01/03/20 08:13 Hgb 16.4 gm/dL (13.0-17.5) 01/03/20 08:13 Hct 49.8 % (39.0-53.0) 01/03/20 08:13 MCV 101.9 fL (80.0-100.0) H 01/03/20 08:13 MCH 33.6 pg (25.0-35.0) 01/03/20 08:13 MCHC 32.9 g/dL (31.0-37.0) 01/03/20 08:13 RDW 14.4 % (11.5-15.5) 01/03/20 08:13 Plt Count 190 k/uL (150-450) 01/03/20 08:13 Neutrophils % 59 % 01/03/20 08:13 Lymphocytes % 26 % 01/03/20 08:13 Monocytes % 7 % 01/03/20 08:13 Eosinophils % 4 % 01/03/20 08:13 Basophils % 1 % 01/03/20 08:13 Neutrophils # 3.9 k/uL (1.3-7.7) 01/03/20 08:13 Lymphocytes # 1.7 k/uL (1.0-4.8) 01/03/20 08:13 Monocytes # 0.5 k/uL (0-1.0) 01/03/20 08:13 Eosinophils # 0.2 k/uL (0-0.7) 01/03/20 08:13 Basophils # 0.0 k/uL (0-0.2) 01/03/20 08:13 Macrocytosis Slight 01/03/20 08:13 Sodium 137 mmol/L (137-145) 01/03/20 08:13 Potassium 3.8 mmol/L (3.5-5.1) 01/03/20 08:13 Chloride 98 mmol/L (98-107) 01/03/20 08:13 Carbon Dioxide 27 mmol/L (22-30) 01/03/20 08:13 Anion Gap 12 mmol/L 01/03/20 08:13 BUN 18 mg/dL (9-20) 01/03/20 08:13 Creatinine 0.91 mg/dL (0.66-1.25) 01/03/20 08:13 Est GFR (CKD-EPI)AfAm >90 (>60 ml/min/1.73 sqM) 01/03/20 08:13 Est GFR (CKD-EPI)NonAf >90 (>60 ml/min/1.73 sqM) 01/03/20 08:13 Glucose 104 mg/dL (74-99) H 01/03/20 08:13 Calcium 10.2 mg/dL (8.4-10.2) 01/03/20 08:13 Total Bilirubin 1.6 mg/dL (0.2-1.3) H 01/03/20 08:13 AST 80 U/L (17-59) H 01/03/20 08:13 ALT 58 U/L (4-49) H 01/03/20 08:13 Alkaline Phosphatase 99 U/L (38-126) 01/03/20 08:13 Total Protein 8.1 g/dL (6.3-8.2) 01/03/20 08:13 Albumin 4.9 g/dL (3.5-5.0) 01/03/20 08:13 Triglycerides 353 mg/dL (<150) H 01/03/20 08:13 Cholesterol 182 mg/dL (<200) 01/03/20 08:13 LDL Cholesterol, Calc 19 mg/dL (0-99) 01/03/20 08:13 HDL Cholesterol 92 mg/dL (40-60) H 01/03/20 08:13 Urine Opiates Screen Not Detected (NotDetected) 01/01/20 19:53 Ur Oxycodone Screen Not Detected (NotDetected) 01/01/20 19:53 Urine Methadone Screen Not Detected (NotDetected) 01/01/20 19:53 Ur Propoxyphene Screen Not Detected (NotDetected) 01/01/20 19:53 Ur Barbiturates Screen Not Detected (NotDetected) 01/01/20 19:53 U Tricyclic Antidepress Not Detected (NotDetected) 01/01/20 19:53 Ur Phencyclidine Scrn Not Detected (NotDetected) 01/01/20 19:53 Ur Amphetamines Screen Not Detected (NotDetected) 01/01/20 19:53 U Methamphetamines Scrn Not Detected (NotDetected) 01/01/20 19:53 U Benzodiazepines Scrn Not Detected (NotDetected) 01/01/20 19:53 Urine Cocaine Screen Not Detected (NotDetected) 01/01/20 19:53 U Marijuana (THC) Screen Not Detected (NotDetected) 01/01/20 19:53 01/03/20 13:24
[2020-01-03 19:13] LABS: Hemoglobin A1C 5.9 % (4.0-6.0)
[2020-01-04] MEDS: ZIPRASIDONE 20 MG VIAL IM PRN (00:01)
[2020-01-04] MEDS: IBUPROFEN 600 MG TAB PO PRN ×3 (07:27→22:57)
[2020-01-04] MEDS: PANTOPRAZOLE 40 MG TABLET PO SCH (08:46)
[2020-01-04] MEDS: chlordiazePOXIDE 25 MG CAP PO SCH ×3 (08:46→22:54)
[2020-01-04] MEDS: NICOTINE 14MG/24HR PATCH TRANSDERM SCH (08:46)
[2020-01-04] MEDS ORDERED: chlordiazePOXIDE 25 MG CAP PO SCH (09:00)
[2020-01-04] MEDS ORDERED: LORazepam 1 MG TAB PO PRN (09:40)
[2020-01-04] MEDS ORDERED: QUEtiapine 50 MG TAB PO PRN (09:42)
[2020-01-04] MEDS: ACETAMINOPHEN TAB 325 MG TAB PO PRN (10:58)
[2020-01-04] MEDS: CYCLOBENZAPRINE 5 MG TAB PO PRN (11:30)
--- NOTE | 2020-01-04 12:50 | P.PN ---
Progress Note - Text Progress Note Date: 01/04/20 Clinical Problems: Alcohol induced mood disorder, alcohol use disorder severe dependence, alcohol withdrawal, rule out alcohol withdrawal delirium Interim history: I reviewed the medical record, interviewed the patient and discuss his treatment and treatment plan during team meeting. I reviewed his CIWA scores which showed a marked decrease in the severity of withdrawal symptoms after we started Librium 50 mg 4 times a day. He complains of restlessness, anxiety and poor sleep. He did not believe that the "current medication" is working. The nursing notes indicate that he was unable to settle last night and received 20 mg of Geodon IM. He complained of vivid dreams and restlessness throughout the night. We discussed the benefits of benzodiazepines for alcohol withdrawal and assured him that the Librium has been effective in reducing the severity of the withdrawal symptoms. He also requested a "muscle relaxant" for back pain. Mental status exam: He presented as a tall thin casually groomed male who was pleasant on approach. He was not irritable, tremulous or diaphoretic. He is alert and oriented to person, place and time. He was not restless but complained of subjective anxiety. His thinking was coherent, logical and goal directed. He denied hallucinations and did not appear to be responding to internal stimuli. Assessment: The Librium was effective in reducing the severity of alcohol withdrawal symptoms. There is no current evidence of delirium or psychosis. Complaint of back pain. Plan: Continue inpatient treatment. Probate hearing is pending. Continue safety precautions. Continue Librium taper. Increase when necessary Ativan to 1 mg twice a day or 2 mg every 8 when necessary for Seroquel greater than 16. Melatonin 5 mg at bedtime and Seroquel 50 mg at bedtime when necessary for sleep. Flexeril 5 mg twice a day when necessary for back pain. Continue CIWA. Continue to monitor for signs and symptoms of withdrawal delirium. Encourage participation in therapeutic groups and activities. Evaluate clinical status response to treatment daily basis.
[2020-01-04] MEDS: LORazepam 1 MG TAB PO PRN ×2 (13:47→21:20)
[2020-01-04] MEDS: MELATONIN 5 MG TABLET PO SCH (22:53)
[2020-01-05] MEDS ORDERED: chlordiazePOXIDE 25 MG CAP PO SCH (09:00)
[2020-01-05] MEDS: IBUPROFEN 600 MG TAB PO PRN (09:13)
[2020-01-05] MEDS: NICOTINE 14MG/24HR PATCH TRANSDERM SCH (09:14)
[2020-01-05] MEDS: chlordiazePOXIDE 25 MG CAP PO SCH (09:15)
[2020-01-05] MEDS: PANTOPRAZOLE 40 MG TABLET PO SCH (09:15)
[2020-01-05] MEDS: LORazepam 1 MG TAB PO PRN (10:27)
--- NOTE | 2020-01-05 10:58 | P.PN ---
Progress Note - Text Interval history: The patient is found at the front desk host he follows me to an interview room. He states he was admitted for making suicidal statements. He reports his mood is fine other than being irritated with appear that is demonstrating manic symptoms. He reports that it was difficult sleeping last night but was more sleep than he had gotten before coming in the hospital. He states that he was drinking more than a fifth a day. He was on the CIWA protocol he is receiving Librium several times a day and has when necessary Ativ an. He asked for the benzodiazepines to be increased and we discussed that this is not in his best interest area it is also not medically necessary. He indicates he is trying to attend groups. No reports of any behavioral disturbance. Mental status exam: The patient's a thin male appearing his stated age. He is dressed in his own clothing wearing shorts and a T-shirt. Eye contact is appropriate speech is fluent spontaneous nonpressured. He indicates his mood is fine he states he is looking forward to discharge. He is reporting no suicidal ideation intent or plan he reports no homicidal ideation intent or plan. Thought process is linear he demonstrates no tangential thinking loose associations or flight of ideas. Insight and judgment limited but slowly improving. He demonstrates no evidence of psychosis hypomania or rajesh. He demonstrates no verbal or physical aggressiveness. There is no evidence of tremor or any other involuntary repetitive movements. Plan: The patient will continue on his current psychotropic medications. He asked that I titrate the Motrin further his kidney function appears normal so we will titrate to 800 mg 3 times daily as needed. Vital signs reviewed CIWA scores reviewed. He is encouraged to fully participate in the milieu. He indicates that he is a deferral conference on Tuesday.
[2020-01-05] MEDS: IBUPROFEN 800 MG TAB PO PRN (12:53)
[2020-01-05] MEDS: hydrOXYzine PAMOATE 25 MG CAP PO PRN (16:15)
[2020-01-05] MEDS: ZIPRASIDONE 20 MG VIAL IM PRN (17:22)
[2020-01-05] MEDS: ACETAMINOPHEN TAB 325 MG TAB PO PRN (18:42)
[2020-01-05] MEDS: CYCLOBENZAPRINE 5 MG TAB PO PRN (18:42)
[2020-01-06] MEDS: chlordiazePOXIDE 25 MG CAP PO SCH (01:24)
[2020-01-06] MEDS: MELATONIN 5 MG TABLET PO SCH ×2 (01:24→20:46)
[2020-01-06] MEDS: IBUPROFEN 800 MG TAB PO PRN ×3 (06:09→23:38)
[2020-01-06] MEDS: NICOTINE 14MG/24HR PATCH TRANSDERM SCH (06:10)
[2020-01-06] MEDS: PANTOPRAZOLE 40 MG TABLET PO SCH (06:26)
[2020-01-06] MEDS: LORazepam 1 MG TAB PO PRN ×3 (06:27→23:38)
[2020-01-06] MEDS: CYCLOBENZAPRINE 5 MG TAB PO PRN ×2 (09:21→20:45)
[2020-01-06] MEDS: ACETAMINOPHEN TAB 325 MG TAB PO PRN ×3 (09:21→20:48)
[2020-01-06] MEDS: hydrOXYzine PAMOATE 25 MG CAP PO PRN ×2 (09:21→20:51)
--- NOTE | 2020-01-06 11:58 | P.PN ---
Progress Note - Text Interval history: The patient is found in the activity room participating in group. He indicates his mood is still anxious he finds himself frustrated with others that are causing disturbances on the unit. He states that he asked for a Geodon injection last evening because it was so frustrating. We discussed that he should utilize the Seroquel as needed instead and he is agreeable. He appears to be doing well in terms of alcohol withdrawal. His vital signs every stable. He indicates he has a deferral conference tomorrow morning. He plans to defer. He is hoping that he is discharged tomorrow. Mental status exam: The patient is alert he is dressed in his own clothing, hygiene grooming are good. Speech is fluent spontaneous nonpressured. He indicates his mood is fine. He feels better than yesterday. His irritability is decreased. He endorses some continued anxiety. He is reporting no hopelessness thinking no suicidal ideation intent or plan. He reports no homicidal ideation intent or plan. He reports no auditory or visual hallucinations or any specific delusions. There is no observed evidence of psychosis. Insight and judgment grossly intact. He remains oriented to person place and date. He demonstrates no verbal or physical aggressiveness. Plan: The patient's will continue on his current medications. He will be allowed to use the Seroquel 50 mg daily as needed. He does appear to be clinically stabilizing. We will monitor him for safety and encourage full participation in the milieu. We will continue to monitor his vital signs/CIWA score.
[2020-01-06] MEDS: QUEtiapine 50 MG TAB PO PRN (12:11)
[2020-01-06] MEDS ORDERED: chlordiazePOXIDE 25 MG CAP PO SCH (21:00)
[2020-01-07] MEDS: NICOTINE 14MG/24HR PATCH TRANSDERM SCH (06:15)
[2020-01-07] MEDS: IBUPROFEN 800 MG TAB PO PRN ×2 (06:15→13:48)
[2020-01-07] MEDS: LORazepam 1 MG TAB PO PRN (06:15)
[2020-01-07 06:53] VITALS: BP 129/86; PULSE 96; RESP 18; TEMP 97.9
[2020-01-07] MEDS: PANTOPRAZOLE 40 MG TABLET PO SCH (08:47)
[2020-01-07] MEDS: hydrOXYzine PAMOATE 25 MG CAP PO PRN (08:49)
[2020-01-07] MEDS: ACETAMINOPHEN TAB 325 MG TAB PO PRN (08:49)
[2020-01-07] MEDS: CYCLOBENZAPRINE 5 MG TAB PO PRN (09:31)
[2020-01-07] MEDS: QUEtiapine 50 MG TAB PO PRN (09:32)
[2020-01-07] MEDS ORDERED: SUMAtriptan SUCCINATE 50 MG TAB PO STA (10:33)
--- NOTE | 2020-01-07 11:51 | P.DS ---
Providers Date of admission: 01/02/20 15:49 Attending physician: Nam Lane MD Consults: 01/02/20 16:01 Consult Physician Routine Consulting Provider: Jenifer Physician Consult Reason/Comments: H & P medical managment Do you want consulting provider notified?: Yes Primary care physician: Stated None - Discharge Diagnosis(es) (1) Suicidal ideation Current Visit: Yes Status: Resolved Priority: Low (2) Alcohol-induced mood disorder Current Visit: Yes Status: Acute Priority: Medium (3) Alcohol withdrawal Current Visit: Yes Status: Acute Priority: High (4) Alcohol use disorder, severe, dependence Current Visit: Yes Status: Chronic Priority: High Hospital Course: HISTORY: He is a 45-year-old single male brought to [facility] on a pickup order. His mother completed the petition that read "called several friends (over 12 friends and relatives) saying goodbye and he is not going to make it to the age of 45. Continued to say he does not want to live and will commit suicide." This is his second admission to our unit; the last was in May 2019 when she presented with history of alcohol use disorder, depression and suicidal ideation. He continued to drink after discharge. He described an increase of his alcohol use over the last 2 weeks where he was consuming at least 1/5 of liquor per day. It was during this dorsey when he began calling friends and family and expressing suicidal ideation. During this interview he was ambivalent about the intent of the suicidal thoughts alleging that he was "95% sure" that the thoughts were the result of his intoxication. He attributed the increase of alcohol use to several stresses. He was laid off from work in September as result of the epidemic. He was unable to pay his rent and was evicted last month. Since he lost his apartment he's been living friends, family and "sleeping in my car." He complained about financial problems since he lost his job. 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 He has had multiple driving under influence citations and has been required to maintain an alcohol monitoring system in his car. He complained that he is unable to afford the monthly fee for the system. During our interview he complained of alcohol withdrawal symptoms including nausea, vomiting, sweating and increasing anxiety. He denied having tactile, auditory or visual disturbances. He minimizes severity of his suicidal thoughts and suicidal expressions. He denied a need for substance abuse treatment and is not interested in either residential or outpatient treatment. Similarly, he has no interest in participating in Alcoholics Anonymous. His breath alcohol level was 0.186 in his UDS was negative for drugs of abuse. This is his third admission to a psychiatric unit. As mentioned above he was discharged from our unit in May 2019 with the diagnosis of depression, alcohol use disorder and opiate use disorder. He's also had one prior admission to a psychiatric facility in [place] and he alleged was also related to his alcohol use. He is not taking any psychotropic medication and is not involved in outpatient mental health services. HOSPITAL COURSE: We admitted him involuntarily to the psychiatric unit after care of this story writer. We provided a comprehensive biopsychosocial assessment. The staffing consultant mailing manager completed initial physical exam and medical history and diagnosis chronic right-sided body pain and tobacco abuse. She recommended Tylenol and Motrin as well as outpatient follow-up. We treated the alcohol abuse with nicotine replacement. He experienced moderate to severe symptoms of alcohol withdrawal uncomplicated by delirium or psychosis. We treated the alcohol withdrawal with tapering doses of Librium starting at 200 mg per day. In addition, he needed intermittent supplementation with Ativan. As the alcohol withdrawal he complained of headache, back pain, and muscle tenderness and requested several medications including Tylenol, Motrin, Flexeril and sumatriptan. He posed no management problem and had no episodes of behavioral dyscontrol. We discussed substance abuse treatment during each of our interviews. He repeatedly declined a referral for sometreatment. He expressed no interest in attending residential or outpatient treatment programs or attending Alcoholics Anonymous. At the time of discharge she presented as a thin casually dressed 45-year-old male who was pleasant on approach. He made eye contact and attended to interview. He had no distinguishing features or prominent physical abnormalities. He had a serious facial expression. He was alert and oriented to person, place and time. Showed no abnormality of psychomotor activity. He had no abnormal movements. Her speech was spontaneous with normal rate, rhythm and volume. His affect was anxious. He denied suicidal ideation and wishes. He denied homicidal ideation. He denied feeling hopeless, helpless and worthless. He did not express ideas reference, paranoid ideation or delusions. His thinking was concrete but his associations were coherent, logical and goal directed. He denied hallucinations did not appear to responding to internal stimuli. AFTERCARE: He returned to his former address and plans to return to work. We gave him information on accessing substance-abuse abuse services in the community. His only discharge medication was Flexeril 5 mg by mouth twice a day when necessary for back pain. Patient Condition at Discharge: Stable Plan - Discharge Summary New Discharge Prescriptions: New Cyclobenzaprine [Flexeril] 5 mg PO BID PRN #60 tab PRN Reason: Muscle Spasm Nicotine 14Mg/24Hr Patch [Habitrol] 1 patch TRANSDERM DAILY patch Continue Ibuprofen [Motrin Ib] 1,200 mg PO Q8H PRN PRN Reason: Pain No Action Glucosamine Sulfate 1,000 mg PO DAILY Discharge Medication List Glucosamine Sulfate 1,000 mg PO DAILY 01/01/20 [History] Ibuprofen [Motrin Ib] 1,200 mg PO Q8H PRN 01/01/20 [History] Cyclobenzaprine [Flexeril] 5 mg PO BID PRN #60 tab 01/07/20 [Rx] Nicotine 14Mg/24Hr Patch [Habitrol] 1 patch TRANSDERM DAILY patch 01/07/20 [Rx] Follow up Appointment(s)/Referral(s): None,Stated [Primary Care Provider] - 1-2 days Activity/Diet/Wound Care/Special Instructions: Activity and diet as tolerated. Avoid the use of street drugs and alcohol. Take all medications as prescribed. When you are in need of refills on your medications please contact your medical provider and/or outpatient psychiatrist to have this done. Please go to scheduled outpatient appointment for aftercare treatment. If symptoms return or become worse, call the crisis line at and/or go to the nearest emergency room for evaluation Discharge Disposition: HOME SELF-CARE
== END 2020-01-07 16:30 | disposition home or self-care (01) | DRG 897 ==
LOC: EC 19:08 → 3MHU 01-02 15:49
PROVIDERS: ADMIT Psychiatry & Neurology Psychiatry; ATTEND Psychiatry & Neurology Psychiatry
DX: F10.24 Alcohol dependence with alcohol-induced mood disorder (principal); R45.851 Suicidal ideations; F11.10 Opioid abuse, uncomplicated; F10.239 Alcohol dependence with withdrawal, unspecified; F29 Unspecified psychosis not due to a substance or known physiological condition; F17.200 Nicotine dependence, unspecified, uncomplicated; F32.9 Major depressive disorder, single episode, unspecified; F41.9 Anxiety disorder, unspecified; Y90.6 Blood alcohol level of 120-199 mg/100 ml; Z56.0 Unemployment, unspecified; Z59.9 Problem related to housing and economic circumstances, unspecified; Z82.49 Family history of ischemic heart disease and other diseases of the circulatory system; Z83.3 Family history of diabetes mellitus; G89.29 Other chronic pain; Z71.6 Tobacco abuse counseling; R45.1 Restlessness and agitation; K21.9 Gastro-esophageal reflux disease without esophagitis
CPT/HCPCS: 80053; 80061; 80306; 82075; 83036; 85025; 99285

== ENCOUNTER 2020-04-11 13:13 | Emergency (ER) | payer OTHER ==
[2020-04-11 13:23] VITALS: RESP 18; TEMP 98
--- NOTE | 2020-04-11 13:50 | ED ---
General Adult HPI - General Source: patient, RN notes reviewed, old records reviewed Mode of arrival: ambulatory Limitations: no limitations <Skyler Cardona - Last Filed: 04/11/20 14:09> <Nick Zaidi - Last Filed: 04/12/20 00:07> - General Chief complaint: Psychiatric Symptoms Stated complaint: EPS eval Time Seen by Provider: 04/11/20 13:20 - History of Present Illness Initial comments: This is a 45-year-old male who presents to the emergency department and police custody. Patient is brought in because the police were contacted because the patient told his information assurance manager that he wanted to kill his mother. The patrol police lieutenant is filling out a petition. Patient himself states he is not homicidal. Patient states he does not want to kill his mother. Patient states he told his counselor that his father wanted to kill his mother and his father has since past 3 years ago. Patient states he doesn't talk to his mother and has not spoke to his mother 3 years and has no desire to harm her. Patient also denies suicidal ideations. Patient states he has been drinking today but he denies any drug use. Patient denies any physical complaints today. Patient denies chest pain difficulty breathing first breath per patient denies abdominal pain patient denies nausea vomiting diarrhea. (Skyler Cardona) - Related Data Home Medications Medication Instructions Recorded Confirmed Ibuprofen [Motrin Ib] 800 mg PO Q8H PRN 01/01/20 04/11/20 [place] Carbonate 600 mg PO HS 04/11/20 04/11/20 QUEtiapine FUMARATE 100 mg PO HS 04/11/20 04/11/20 Allergies Allergy/AdvReac Type Severity Reaction Status Date / Time No Known Allergies Allergy Verified 04/11/20 14:16 Review of Systems ROS Other: All systems not noted in ROS Statement are negative. <Skyler Cardona - Last Filed: 04/11/20 14:09> ROS Other: All systems not noted in ROS Statement are negative. <Nick Zaidi - Last Filed: 04/12/20 00:07> ROS Statement: Those systems with pertinent positive or pertinent negative responses have been documented in the HPI. Past Medical History Past Medical History: No Reported History Additional Past Medical History / Comment(s): head injury History of Any Multi-Drug Resistant Organisms: None Reported Past Surgical History: Orthopedic Surgery Additional Past Surgical History / Comment(s): fingers/hand, right shoulder, right leg, right collarbone, right ankle Past Psychological History: No Psychological Hx Reported Smoking Status: Current every day smoker Past Alcohol Use History: Abuse Past Drug Use History: None Reported, Cocaine, Opiates, Prescription Drug Abuse - Past Family History family Additional Family Medical History / Comment(s): Diabetes and heart disease in his father <Skyler Cardona - Last Filed: 04/11/20 14:09> General Exam Limitations: no limitations <Skyler Cardona - Last Filed: 04/11/20 14:09> - General Exam Comments Initial Comments: GENERAL: Patient is well-developed and well-nourished. Patient is nontoxic and well- hydrated and is in mild distress. ENT: Neck is soft and supple. No significant lymphadenopathy is noted. Oropharynx is clear. Moist mucous membranes. Neck has full range of motion without eliciting any pain. EYES: The sclera were anicteric and conjunctiva were pink and moist. Extraocular movements were intact and pupils were equal round and reactive to light. Eyelids were unremarkable. PULMONARY: Unlabored respirations. Good breath sounds bilaterally. No audible rales rhonchi or wheezing was noted. CARDIOVASCULAR: There is a regular rate and rhythm without any murmurs gallops or rubs. ABDOMEN: Soft and nontender with normal bowel sounds. SKIN: Skin is clear with no lesions or rashes and otherwise unremarkable. NEUROLOGIC: Patient is alert and oriented x3. Cranial nerves II through XII are grossly intact. Motor and sensory are also intact. Normal speech, volume and content. Symmetrical smile. MUSCULOSKELETAL: Normal extremities with adequate strength and full range of motion. LYMPHATICS: No significant lymphadenopathy is noted PSYCHIATRIC: Normal psychiatric evaluation. (Skyler Cardona) Course Vital Signs 04/11/20 04/11/20 13:19 18:48 Temperature 98 F Pulse Rate 72 75 Respiratory 18 18 Rate Blood Pressure 146/99 145/78 O2 Sat by Pulse 97 98 Oximetry Medical Decision Making <Skyler Cardona - Last Filed: 04/11/20 14:09> - Medical Decision Making Dr. Cordova will be taking over the care of this patient at 3 PM (Skyler Cardona) - Lab Data Lab Results 04/11/20 Range/Units 16:43 Urine Opiates Screen Not Detected (NotDetected) Ur Oxycodone Screen Not Detected (NotDetected) Urine Methadone Screen Not Detected (NotDetected) Ur Propoxyphene Screen Not Detected (NotDetected) Ur Barbiturates Screen Not Detected (NotDetected) U Tricyclic Antidepress Not Detected (NotDetected) Ur Phencyclidine Scrn Not Detected (NotDetected) Ur Amphetamines Screen Not Detected (NotDetected) U Methamphetamines Scrn Not Detected (NotDetected) U Benzodiazepines Scrn Not Detected (NotDetected) Urine Cocaine Screen Not Detected (NotDetected) U Marijuana (THC) Screen Not Detected (NotDetected) Disposition <Skyler Cardona - Last Filed: 04/11/20 14:09> Is patient prescribed a controlled substance at d/c from ED?: No <Nick Zaidi - Last Filed: 04/12/20 00:07> Clinical Impression: Alcohol intoxication Disposition: HOME SELF-CARE Condition: Fair Instructions (If sedation given, give patient instructions): Alcohol Intoxication (ED) Referrals: None,Stated [Primary Care Provider] - 1-2 days
[2020-04-11 17:22] LABS: Amphetamine Screen,Urine Not Detected (NotDetected); Barbiturate Screen,Urine Not Detected (NotDetected); Benzodiazepines Screen,Urine Not Detected (NotDetected); Cocaine Screen,Urine Not Detected (NotDetected); Methadone Screen, Urine Not Detected (NotDetected); Opiate Screen,Urine Not Detected (NotDetected); Oxycodone Screen, Urine Not Detected (NotDetected); Phencyclidine Screen,Urine Not Detected (NotDetected); Tricyclic Antidepressant,Urine Not Detected (NotDetected); Urn Cannabinoid Scrn Not Detected (NotDetected)
[2020-04-11 18:49] VITALS: BP 145/78; PULSE 75
== END 2020-04-12 00:14 | disposition home or self-care (01) ==
LOC: EC 13:13
DX: F10.129 Alcohol abuse with intoxication, unspecified (principal); F17.200 Nicotine dependence, unspecified, uncomplicated; Z79.899 Other long term (current) drug therapy
CPT/HCPCS: 80306; 82075; 99284

== ENCOUNTER 2021-05-17 11:32 | Emergency (ER) | payer MEDICAID, OTHER ==
[2021-05-17 11:51] VITALS: BP 128/89; PULSE 99; RESP 20; TEMP 98.4
--- NOTE | 2021-05-17 12:05 | ED ---
General Adult HPI - General Source: patient, police, RN notes reviewed, old records reviewed Mode of arrival: ambulatory Limitations: no limitations <Skyler Cardona - Last Filed: 05/17/21 14:19> <Sophia Cid - Last Filed: 05/17/21 16:21> - General Chief complaint: Psychiatric Symptoms Stated complaint: Petition Time Seen by Provider: 05/17/21 11:50 - History of Present Illness Initial comments: This is a 46-year-old male who presents to the emergency department in police custody. According to the police the patient had text a friend stated that he wanted to put an exhaust pipe in his exhaust duck tape it and then put in the car. Patient denies being suicidal or homicidal. Patient states he has nothing to say about that. Patient denies any physical complaints today. Patient denies any fever chills or cough per patient's chest pain difficult breathing shortness of breath per patient denies abdominal pain patient denies nausea vomiting diarrhea. Patient states he did drink last night but no use. Patient denies drinking today. (Skyler Cardona) - Related Data Home Medications Medication Instructions Recorded Confirmed Ibuprofen [Motrin Ib] 800 mg PO Q8H PRN 01/01/20 05/17/21 Naltrexone HCl [Revia] 50 mg PO DAILY 05/17/21 05/17/21 QUEtiapine FUMARATE [SEROquel] 300 mg PO HS 05/17/21 05/17/21 Allergies Allergy/AdvReac Type Severity Reaction Status Date / Time No Known Allergies Allergy Verified 05/17/21 11:51 Review of Systems ROS Other: All systems not noted in ROS Statement are negative. <Skyler Cardona - Last Filed: 05/17/21 14:19> ROS Other: All systems not noted in ROS Statement are negative. <Sophia Cid P - Last Filed: 05/17/21 16:21> ROS Statement: Those systems with pertinent positive or pertinent negative responses have been documented in the HPI. Past Medical History Past Medical History: No Reported History Additional Past Medical History / Comment(s): head injury History of Any Multi-Drug Resistant Organisms: None Reported Past Surgical History: Orthopedic Surgery Additional Past Surgical History / Comment(s): fingers/hand, right shoulder, right leg, right collarbone, right ankle Past Psychological History: No Psychological Hx Reported Smoking Status: Current every day smoker Past Alcohol Use History: Abuse Past Drug Use History: Cocaine, Opiates, Prescription Drug Abuse - Past Family History family Additional Family Medical History / Comment(s): Diabetes and heart disease in his father <Cardona,Skyler - Last Filed: 05/17/21 14:19> General Exam Limitations: no limitations <Skyler Cardona - Last Filed: 05/17/21 14:19> - General Exam Comments Initial Comments: GENERAL: Patient is well-developed and well-nourished. Patient is nontoxic and well- hydrated and is in no acute distress. ENT: Neck is soft and supple. No significant lymphadenopathy is noted. Oropharynx is clear. Moist mucous membranes. Neck has full range of motion without eliciting any pain. EYES: The sclera were anicteric and conjunctiva were pink and moist. Extraocular movements were intact and pupils were equal round and reactive to light. Eyelids were unremarkable. PULMONARY: Unlabored respirations. Good breath sounds bilaterally. No audible rales rhonchi or wheezing was noted. CARDIOVASCULAR: There is a regular rate and rhythm without any murmurs gallops or rubs. ABDOMEN: Soft and nontender with normal bowel sounds. SKIN: Skin is clear with no lesions or rashes and otherwise unremarkable. NEUROLOGIC: Patient is alert and oriented x3. Cranial nerves II through XII are grossly intact. Motor and sensory are also intact. Normal speech, volume and content. Symmetrical smile. MUSCULOSKELETAL: Normal extremities with adequate strength and full range of motion. No lower extremity swelling or edema. No calf tenderness. LYMPHATICS: No significant lymphadenopathy is noted PSYCHIATRIC: Normal psychiatric evaluation. Patient denies suicidal or homicidal ideations. (Skyler Cardona) Course Vital Signs 05/17/21 11:46 Temperature 98.4 F Pulse Rate 99 Respiratory 20 Rate Blood Pressure 128/89 O2 Sat by Pulse 96 Oximetry Medical Decision Making <Skyler Cardona - Last Filed: 05/17/21 14:19> <Sophia Cid - Last Filed: 05/17/21 16:21> - Medical Decision Making Dr. Cid will be taking over the care of this patient at 3 PM (Skyler Cardona) The patient was seen and evaluated by emergency psychiatric services once he was sober, the safety plan was formed, patient was discharged home with plan for outpatient counseling. (Sophia Cid) Disposition <Skyler Cardona - Last Filed: 05/17/21 14:19> Is patient prescribed a controlled substance at d/c from ED?: No <Sophia Cid - Last Filed: 05/17/21 16:21> Clinical Impression: Alcohol intoxication Disposition: HOME SELF-CARE Condition: Stable Additional Instructions: Follow-up with outpatient counseling as discussed with Sandra Referrals: None,Stated [Primary Care Provider] - 1-2 days
== END 2021-05-17 16:26 | disposition home or self-care (01) ==
LOC: EC 11:32
DX: F10.129 Alcohol abuse with intoxication, unspecified (principal); F17.200 Nicotine dependence, unspecified, uncomplicated; Z65.3 Problems related to other legal circumstances; Y90.9 Presence of alcohol in blood, level not specified
CPT/HCPCS: 82075; 99284

== ENCOUNTER 2022-02-14 10:39 | Emergency (ER) | payer OTHER ==
[2022-02-14 10:46] VITALS: TEMP 98.6
--- NOTE | 2022-02-14 11:42 | ED ---
General Adult HPI - General Chief complaint: ENT Stated complaint: sore throat Time Seen by Provider: 02/14/22 10:45 Source: patient, RN notes reviewed, old records reviewed Mode of arrival: ambulatory Limitations: no limitations - History of Present Illness Initial comments: This is a 47-year-old male presents emergency Department complaining that he has got ulcerations on his cheek tongue and lips. Patient states been ongoing for 2 days and is very painful. Patient also complains of significantly bad sore throat over 2 days but is slowly improving today. Patient denies any fevers chills. Patient states he is able to eat or drink just hurts. Patient denies any other symptoms at this time. - Related Data Home Medications Medication Instructions Recorded Confirmed Ibuprofen [Motrin Ib] 800 mg PO Q8H PRN 01/01/20 05/17/21 Naltrexone HCl [Revia] 50 mg PO DAILY 05/17/21 05/17/21 QUEtiapine FUMARATE [SEROquel] 300 mg PO HS 05/17/21 05/17/21 Previous Rx's Medication Instructions Recorded Lidocaine Viscous 2% [Xylocaine 15 ml MUCOUS MEM TID #225 ml 02/14/22 Viscous] Allergies Allergy/AdvReac Type Severity Reaction Status Date / Time No Known Allergies Allergy Verified 02/14/22 10:46 Review of Systems ROS Statement: Those systems with pertinent positive or pertinent negative responses have been documented in the HPI. ROS Other: All systems not noted in ROS Statement are negative. Past Medical History Past Medical History: No Reported History Additional Past Medical History / Comment(s): head injury History of Any Multi-Drug Resistant Organisms: None Reported Past Surgical History: Orthopedic Surgery Additional Past Surgical History / Comment(s): fingers/hand, right shoulder, right leg, right collarbone, right ankle Past Psychological History: No Psychological Hx Reported Smoking Status: Current every day smoker Past Alcohol Use History: Daily Past Drug Use History: Cocaine, Opiates, Prescription Drug Abuse - Past Family History family Additional Family Medical History / Comment(s): Diabetes and heart disease in his father General Exam - General Exam Comments Initial Comments: GENERAL Patient is well-developed and well-nourished. Patient is in mild distress. EYES Patient's pupils are equal and round. Extraocular motion is intact MOUTH Patient has round well-circumscribed lesions on the lower lip bilateral cheeks and little bit on the tip of the tongue. All lesions are painful. SKIN Unremarkable NEURO The patient is alert and oriented 3 PYSCH Patient has normal interpersonal interactions. MUSCULOSKELETAL All 4 times and full range of motion. Limitations: no limitations Course Vital Signs 02/14/22 10:44 Temperature 98.6 F Pulse Rate 83 Respiratory 16 Rate Blood Pressure 146/96 O2 Sat by Pulse 100 Oximetry Medical Decision Making - Medical Decision Making rapid strep was negative - Lab Data Lab Results 02/14/22 Range/Units 11:07 Group A Strep (PCR) NOT DETECTED (Not Detectd) Disposition Clinical Impression: Aphthous stomatitis Disposition: HOME SELF-CARE Condition: Good Instructions (If sedation given, give patient instructions): Canker Sores (ED) Prescriptions: Lidocaine Viscous 2% [Xylocaine Viscous] 15 ml MUCOUS MEM TID #225 ml Is patient prescribed a controlled substance at d/c from ED?: No Referrals: Carlos Proctor MD [STAFF PHYSICIAN] - 1-2 days Time of Disposition: 12:27
[2022-02-14 12:52] VITALS: BP 134/99; PULSE 70; RESP 15
== END 2022-02-14 12:53 | disposition home or self-care (01) ==
LOC: EC 10:39
DX: K12.0 Recurrent oral aphthae (principal); F17.200 Nicotine dependence, unspecified, uncomplicated; Z72.89 Other problems related to lifestyle
CPT/HCPCS: 87651; 99283

== ENCOUNTER 2022-06-16 14:57 | Emergency (ER) | payer OTHER ==
[2022-06-16 15:30] VITALS: TEMP 98
--- NOTE | 2022-06-16 19:42 | ED ---
Head Injury HPI - General Chief complaint: Head Injury Stated complaint: Previous head injury Time Seen by Provider: 06/16/22 19:03 Source: patient, RN notes reviewed Mode of arrival: ambulatory Limitations: no limitations - History of Present Illness Initial comments: This is a 47-year-old male who presents to the emergency department for neurological concerns. States that 5 years ago, he had a traumatic brain injury. Over the last month, he has started having what he thinks are auditory hallucinations. States that when he drives down a street, if he sees someone, he feels like he is having a conversation with them when he is not. These voices are not telling him anything specific. Also reports an increase in memory loss. He is concerned that this may all be related to the previous traumatic brain injury. He is not currently seeing a neurologist. He denies any psychiatric history in himself or family members. He also denies any suic idal or homicidal ideations. He has no associated visual hallucinations. Denies any fevers, chills, sore throat, cough, dyspnea, chest pain, palpitations, abdominal pain, nausea, vomiting, diarrhea, back pain, or headaches. - Related Data Home Medications Medication Instructions Recorded Confirmed Ibuprofen [Motrin Ib] 800 mg PO Q8H PRN 01/01/20 05/17/21 Naltrexone HCl [Revia] 50 mg PO DAILY 05/17/21 05/17/21 QUEtiapine FUMARATE [SEROquel] 300 mg PO HS 05/17/21 05/17/21 Previous Rx's Medication Instructions Recorded Lidocaine Viscous 2% [Xylocaine 15 ml MUCOUS MEM TID #225 ml 02/14/22 Viscous] Allergies/Adverse reactions: Allergies Allergy/AdvReac Type Severity Reaction Status Date / Time No Known Allergies Allergy Verified 06/16/22 15:30 Review of Systems ROS Statement: Those systems with pertinent positive or pertinent negative responses have been documented in the HPI. ROS Other: All systems not noted in ROS Statement are negative. Past Medical History Past Medical History: No Reported History Additional Past Medical History / Comment(s): head injury History of Any Multi-Drug Resistant Organisms: None Reported Past Surgical History: Orthopedic Surgery Additional Past Surgical History / Comment(s): fingers/hand, right shoulder, right leg, right collarbone, right ankle Past Psychological History: No Psychological Hx Reported Smoking Status: Current every day smoker Past Alcohol Use History: Daily Past Drug Use History: Cocaine, Opiates, Prescription Drug Abuse - Past Family History family Additional Family Medical History / Comment(s): Diabetes and heart disease in his father General Exam Limitations: no limitations General appearance: alert Head exam: Present: atraumatic, normocephalic, normal inspection Eye exam: Present: normal appearance, PERRL, EOMI. Absent: scleral icterus, conjunctival injection, periorbital swelling Respiratory exam: Present: normal lung sounds bilaterally. Absent: respiratory distress, wheezes, rales, rhonchi, stridor Cardiovascular Exam: Present: regular rate, normal rhythm, normal heart sounds. Absent: systolic murmur, diastolic murmur, rubs, gallop, clicks Neurological exam: Present: alert, oriented X3, CN II-XII intact Expanded Speech: Present: fluid speech Cerebellar function: Finger to Nose: Normal, Heel to Nobles: Normal, Romberg: Normal Motor strength exam: RUE: 5, LUE: 5, RLE: 5, LLE: 5 Eye Response: (4) open spontaneously Motor Response: (6) obeys commands Verbal Response: (5) oriented Psychiatric exam: Present: normal affect, normal mood Skin exam: Present: warm, dry, intact, normal color. Absent: rash Course Vital Signs 06/16/22 06/16/22 15:27 22:11 Temperature 98 F Pulse Rate 94 71 Respiratory 16 15 Rate Blood Pressure 147/94 133/65 O2 Sat by Pulse 97 99 Oximetry Medical Decision Making - Medical Decision Making This is a 47-year-old male who presents to the emergency department for concerns of auditory hallucinations. Lab work obtained and found to be nonactionable. Computed tomography scan of the brain obtained, and on my interpretation there is no evidence of acute intracranial hemorrhage or mass effect. Patient does admit to using multiple illicit substances, which may be a contributing factor to his symptoms. There also may be a psychiatric component to this. However, given that this has associated memory loss and due to his TBI history, he was given information for neurology follow-up. If any additional neurology workup is performed and found to be negative, consideration should be given to the psychiatric concerns or the effects of illicit substance abuse. Return precautions reviewed in depth, the patient is instructed to return to the emergency department with any new, worsening, or concerning symptoms. Patient verbalized understanding. This case was discussed in detail with the attending ED physician. Presentation, findings, and treatment plan discussed in detail as well. - Lab Data Result diagrams: 06/16/22 20:30 06/16/22 20:30 Lab Results 06/16/22 06/16/22 06/16/22 Range/Units 20:30 20:30 20:30 WBC 6.3 (3.8-10.6) k/uL RBC 4.47 (4.30-5.90) m/uL Hgb 15.5 (13.0-17.5) gm/dL Hct 45.0 (39.0-53.0) % MCV 100.5 H (80.0-100.0) fL MCH 34.7 (25.0-35.0) pg MCHC 34.5 (31.0-37.0) g/dL RDW 12.9 (11.5-15.5) % Plt Count 113 L (150-450) k/uL MPV 8.8 Neutrophils % 70 % Lymphocytes % 20 % Monocytes % 6 % Eosinophils % 2 % Basophils % 1 % Neutrophils # 4.4 (1.3-7.7) k/uL Lymphocytes # 1.3 (1.0-4.8) k/uL Monocytes # 0.4 (0-1.0) k/uL Eosinophils # 0.1 (0-0.7) k/uL Basophils # 0.1 (0-0.2) k/uL PT (9.0-12.0) sec INR (<1.2) APTT (22.0-30.0) sec Sodium 135 L (137-145) mmol/L Potassium 5.0 (3.5-5.1) mmol/L Chloride 95 L (98-107) mmol/L Carbon Dioxide 28 (22-30) mmol/L Anion Gap 12 mmol/L BUN 26 H (9-20) mg/dL Creatinine 0.93 (0.66-1.25) mg/dL Est GFR (CKD-EPI)AfAm >90 (>60 ml/min/1.73 sqM) Est GFR (CKD-EPI)NonAf >90 (>60 ml/min/1.73 sqM) Glucose 91 (74-99) mg/dL Calcium 9.9 (8.4-10.2) mg/dL Magnesium 2.0 (1.6-2.3) mg/dL Total Bilirubin 1.5 H (0.2-1.3) mg/dL AST 40 (17-59) U/L ALT 30 (4-49) U/L Alkaline Phosphatase 96 (38-126) U/L Troponin I <0.012 (0.000-0.034) ng/mL Total Protein 7.9 (6.3-8.2) g/dL Albumin 4.9 (3.5-5.0) g/dL TSH 2.530 (0.465-4.680) mIU/L 06/16/22 Range/Units 20:30 WBC (3.8-10.6) k/uL RBC (4.30-5.90) m/uL Hgb (13.0-17.5) gm/dL Hct (39.0-53.0) % MCV (80.0-100.0) fL MCH (25.0-35.0) pg MCHC (31.0-37.0) g/dL RDW (11.5-15.5) % Plt Count (150-450) k/uL MPV Neutrophils % % Lymphocytes % % Monocytes % % Eosinophils % % Basophils % % Neutrophils # (1.3-7.7) k/uL Lymphocytes # (1.0-4.8) k/uL Monocytes # (0-1.0) k/uL Eosinophils # (0-0.7) k/uL Basophils # (0-0.2) k/uL PT 10.1 (9.0-12.0) sec INR 1.0 (<1.2) APTT 23.9 (22.0-30.0) sec Sodium (137-145) mmol/L Potassium (3.5-5.1) mmol/L Chloride (98-107) mmol/L Carbon Dioxide (22-30) mmol/L Anion Gap mmol/L BUN (9-20) mg/dL Creatinine (0.66-1.25) mg/dL Est GFR (CKD-EPI)AfAm (>60 ml/min/1.73 sqM) Est GFR (CKD-EPI)NonAf (>60 ml/min/1.73 sqM) Glucose (74-99) mg/dL Calcium (8.4-10.2) mg/dL Magnesium (1.6-2.3) mg/dL Total Bilirubin (0.2-1.3) mg/dL AST (17-59) U/L ALT (4-49) U/L Alkaline Phosphatase (38-126) U/L Troponin I (0.000-0.034) ng/mL Total Protein (6.3-8.2) g/dL Albumin (3.5-5.0) g/dL TSH (0.465-4.680) mIU/L - Radiology Data Radiology results: report reviewed, image reviewed Disposition Clinical Impression: Hx of traumatic brain injury, Auditory hallucinations Disposition: HOME SELF-CARE Instructions (If sedation given, give patient instructions): Nonpsychiatric Hallucinations (ED), Hallucinations (ED) Additional Instructions: Return to the emergency department with any new, worsening, or concerning symptoms. Contact neurology as listed below for a follow-up appointment regarding your symptoms. Follow up with your primary care provider in 1-2 days. Is patient prescribed a controlled substance at d/c from ED?: No Referrals: None,Stated [Primary Care Provider] - 1-2 days Savage Charles MD [STAFF PHYSICIAN] - 1-2 days
--- NOTE | 2022-06-16 19:59 | CT ---
EXAMINATION TYPE: CT brain wo con DATE OF EXAM: 06/16/2022 COMPARISON: 06/16/2022 HISTORY: hallucinations. hx of traumatic brain injury. CT DLP: 1139.4 mGycm Automated exposure control for dose reduction was used. Ventricles have normal size. There is no mass effect or midline shift. No sign of intracranial hemorr mary lou. The calvarium is intact. No evidence of cerebral edema. IMPRESSION: Negative CT scan of the brain. There is clearing of the subarachnoid hemorrhage at the anterior circl e of [place] compared to the old exam.
[2022-06-16 20:46] LABS: Basophils # (A) 0.1 k/uL (0-0.2); Basophils % (A) 1 %; Eosinophils # (A) 0.1 k/uL (0-0.7); Eosinophils % (A) 2 %; HGB 15.5 gm/dL (13.0-17.5); Lymphocytes # (A) 1.3 k/uL (1.0-4.8); Lymphocytes % (A) 20 %; MCH 34.7 pg (25.0-35.0); MCHC 34.5 g/dL (31.0-37.0); MCV 100.5 fL (80.0-100.0); Mean Platelet Volume 8.8; Monocytes # (A) 0.4 k/uL (0-1.0); Monocytes % (A) 6 %; Neutrophils # (A) 4.4 k/uL (1.3-7.7); Neutrophils % (A) 70 %; Platelet Count 113 k/uL (150-450); RBC 4.47 m/uL (4.30-5.90); RDW 12.9 % (11.5-15.5); WBC 6.3 k/uL (3.8-10.6)
[2022-06-16 20:56] LABS: ALT 30 U/L (4-49); AST 40 U/L (17-59); African American GFR (CKD) >90 (>60 ml/min/1.73 sqM); Albumin 4.9 g/dL (3.5-5.0); Alkaline Phosphatase 96 U/L (38-126); Anion Gap 12 mmol/L; Blood Urea Nitrogen 26 mg/dL (9-20); Calcium 9.9 mg/dL (8.4-10.2); Carbon Dioxide 28 mmol/L (22-30); Chloride 95 mmol/L (98-107); Glucose 91 mg/dL (74-99); Non-African American GFR(CKD) >90 (>60 ml/min/1.73 sqM); Sodium 135 mmol/L (137-145); Total Bilirubin 1.5 mg/dL (0.2-1.3); Total Protein 7.9 g/dL (6.3-8.2)
[2022-06-16 21:11] LABS: Partial Thromboplastin Time 23.9 sec (22.0-30.0); Prothrombin Time 10.1 sec (9.0-12.0)
[2022-06-16 22:13] VITALS: BP 133/65; PULSE 71; RESP 15
== END 2022-06-16 22:16 | disposition home or self-care (01) ==
LOC: EC 14:57
DX: R44.0 Auditory hallucinations (principal); Z87.820 Personal history of traumatic brain injury; F17.200 Nicotine dependence, unspecified, uncomplicated; Z79.899 Other long term (current) drug therapy
CPT/HCPCS: 36415; 70450; 80053; 83735; 84443; 84484; 85025; 85610; 85730; 99284

== ENCOUNTER 2023-01-22 13:54 | Inpatient (IN) | payer MEDICAID, OTHER ==
[2023-01-22] MEDS ORDERED: SODIUM CHLORIDE 0.9% 500 ML 500 ML IV ONE (14:26)
[2023-01-22] MEDS ORDERED: SODIUM CHLORIDE 0.9% 1,000 ML IV ONE (14:26)
--- NOTE | 2023-01-22 14:29 | ED ---
General Adult HPI - General Chief complaint: Psychiatric Symptoms Stated complaint: Mental health eval/Withdrawal Time Seen by Provider: 01/22/23 14:10 Source: patient, RN notes reviewed, old records reviewed Mode of arrival: ambulatory Limitations: no limitations - History of Present Illness Initial comments: This is a 48-year-old male who presents emergency Department stating he's an alcoholic. Patient states he hasn't drank since 2 AM and he is suicidal. Patient states he like to stop drinking but when he does he becomes very suicidal and is thinking of hanging himself. Patient says he's never made an attempt in the past but he has had the rope and hand. Patient states that he used to be on medication but he is not currently. Patient states she usually drinks about a fifth of liquor every day. Patient denies any recent fever chills or cough per patient denies any chest pain palpitations difficulty breathing shortest breath per patient denies any abdominal pain patient denies nausea vomiting diarrhea. - Related Data Home Medications Medication Instructions Recorded Confirmed No Known Home Medications 01/22/23 01/22/23 Allergies Allergy/AdvReac Type Severity Reaction Status Date / Time No Known Allergies Allergy Verified 01/22/23 16:04 Review of Systems ROS Statement: Those systems with pertinent positive or pertinent negative responses have been documented in the HPI. ROS Other: All systems not noted in ROS Statement are negative. Past Medical History Past Medical History: No Reported History Additional Past Medical History / Comment(s): head injury History of Any Multi-Drug Resistant Organisms: None Reported Past Surgical History: Orthopedic Surgery Additional Past Surgical History / Comment(s): fingers/hand, right shoulder, right leg, right collarbone, right ankle Past Psychological History: No Psychological Hx Reported Smoking Status: Current every day smoker Past Alcohol Use History: Abuse, Daily Past Drug Use History: Cocaine, Opiates, Prescription Drug Abuse - Past Family History family Additional Family Medical History / Comment(s): Diabetes and heart disease in hi s father General Exam - General Exam Comments Initial Comments: GENERAL: Patient is well-developed and well-nourished. Patient is nontoxic and well- hydrated and is in no acute distress. ENT: Neck is soft and supple. No significant lymphadenopathy is noted. Oropharynx is clear. Moist mucous membranes. Neck has full range of motion without eliciting any pain. EYES: The sclera were anicteric and conjunctiva were pink and moist. Extraocular movements were intact and pupils were equal round and reactive to light. Eyelids were unremarkable. PULMONARY: Unlabored respirations. Good breath sounds bilaterally. No audible rales rhonchi or wheezing was noted. CARDIOVASCULAR: Patient is tachycardic at about 110 beats per minute ABDOMEN: Soft and nontender with normal bowel sounds. SKIN: Skin is clear with no lesions or rashes and otherwise unremarkable. NEUROLOGIC: Patient is alert and oriented x3. Cranial nerves II through XII are grossly intact. Motor and sensory are also intact. Normal speech, volume and content. Symmetrical smile. MUSCULOSKELETAL: Normal extremities with adequate strength and full range of motion. LYMPHATICS: No significant lymphadenopathy is noted PSYCHIATRIC: Normal psychiatric evaluation. Limitations: no limitations Course Vital Signs 01/22/23 14:09 Temperature 98.1 F Pulse Rate 115 H Respiratory 20 Rate Blood Pressure 138/101 O2 Sat by Pulse 99 Oximetry Medical Decision Making - Medical Decision Making Was pt. sent in by a medical professional or institution (, PA, NEWS CLIPPING CUTTER, urgent care, hospital, or assisted...) When possible be specific @ -No Did you speak to anyone other than the patient for history (EMS, parent, family, police, friend...)? What history was obtained from this source @ -No Did you review nursing and triage notes (agree or disagree)? Why? @ -I reviewed and agree with nursing and triage notes Were old charts reviewed (outside hosp., previous admission, EMS record, old EKG, old radiological studies, urgent care reports/EKG's, assisted records)? Report findings @ -No old charts were reviewed Differential Diagnosis (chest pain, altered mental status, abdominal pain women, abdominal pain men, vaginal bleeding, weakness, fever, dyspnea, syncope, headache, dizziness, GI bleed, back pain, seizure, CVA, palpatations, mental health, musculoskeletal)? @ -Differential Mental Health Depression, anxiety, bipolar, psychosis, schizophrenia, borderline personality, situational depression, adjustment disorder, behavioral disorder, brain tumor, malingering, substance abuse, encephalopathy, medication reaction, dementia, hypothyroidism, degenerative neurologic disorder, lupus.... This is not meant to be all-inclusive list EKG interpreted by me (3pts min.). @ -As above X-rays interpreted by me (1pt min.). @ -None done CT interpreted by me (1pt min.). @ -None done U/S interpreted by me (1pt. min.). @ -None done What testing was considered but not performed or refused? (CT, X-rays, U/S, labs)? Why? @ -None What meds were considered but not given or refused? Why? @ -None Did you discuss the management of the patient with other professionals (julien lopes i.e. , PA, NEWS CLIPPING CUTTER, lab, RT, psych nurse, social media editor, commodities clerk, teacher, special assets officer, piano case and bench assembler)? Give summary @ -I spoke with the EPS nurse and she spoke with the psychiatrist and it was determined the patient will be admitted Was smoking cessation discussed for >3mins.? @ -No Was critical care preformed (if so, how long)? @ -No Were there social determinants of health that impacted care today? How? (Homelessness, low income, unemployed, alcoholism, drug addiction, t ransportation, low edu. Level, literacy, decrease access to med. care, long term, rehab)? @ -No Was there de-escalation of care discussed even if they declined (Discuss DNR or withdrawal of care, Hospice)? DNR status @ -No What co-morbidities impacted this encounter? (DM, HTN, Smoking, COPD, CAD, Cancer, CVA, ARF, Chemo, Hep., AIDS, mental health diagnosis, sleep apnea, morbid obesity)? @ -None Was patient admitted / discharged? Hospital course, mention meds given and route, prescriptions, significant lab abnormalities, going to OR and other pertinent info. @ -She admits is an alcoholic however he hasn't drank since last night at 2:00 he is here because he is suicidal. Undiagnosed new problem with uncertain prognosis? @ -No Drug Therapy requiring intensive monitoring for toxicity (Heparin, Nitro, Insuli n, Cardizem)? @ -No Were any procedures done? @ -No Diagnosis/symptom? @ -Suicidal ideations Acute, or Chronic, or Acute on Chronic? @ -Acute Uncomplicated (without systemic symptoms) or Complicated (systemic symptoms)? @ -Complicated Side effects of treatment? @ -No Exacerbation, Progression, or Severe Exacerbation? @ -No Poses a threat to life or bodily function? How? (Chest pain, USA, MA, pneumonia, PE, COPD, DKA, ARF, appy, cholecystitis, CVA, Diverticulitis, Homicidal, Suicidal, threat to staff... and all critical care pts) @ -Yes this could lead to attempted suicide and possibly Diagnosis/symptom? @ -Alcohol abuse Acute, or Chronic, or Acute on Chronic? @ -Chronic Uncomplicated (without systemic symptoms) or Complicated (systemic symptoms)? @ -Complicated Side effects of treatment? @ -none Exacerbation, Progression, or Severe Exacerbation] @ -no Poses a threat to life or bodily function? @ -no - Lab Data Result diagrams: 01/22/23 14:42 01/22/23 14:42 Lab Results 01/22/23 01/22/23 Range/Units 14:42 14:42 WBC 9.4 (3.8-10.6) k/uL RBC 4.38 (4.30-5.90) m/uL Hgb 15.6 (13.0-17.5) gm/dL Hct 46.8 (39.0-53.0) % MCV 106.9 H (80.0-100.0) fL MCH 35.6 H (25.0-35.0) pg MCHC 33.3 (31.0-37.0) g/dL RDW 13.6 (11.5-15.5) % Plt Count 315 (150-450) k/uL MPV 7.5 Neutrophils % 74 % Lymphocytes % 18 % Monocytes % 5 % Eosinophils % 1 % Basophils % 1 % Neutrophils # 6.9 (1.3-7.7) k/uL Lymphocytes # 1.7 (1.0-4.8) k/uL Monocytes # 0.5 (0-1.0) k/uL Eosinophils # 0.1 (0-0.7) k/uL Basophils # 0.1 (0-0.2) k/uL Macrocytosis Moderate Sodium 137 (137-145) mmol/L Potassium 5.5 H (3.5-5.1) mmol/L Chloride 95 L (98-107) mmol/L Carbon Dioxide 21 L (22-30) mmol/L Anion Gap 21 mmol/L BUN 20 (9-20) mg/dL Creatinine 1.11 (0.66-1.25) mg/dL Est GFR (CKD-EPI)AfAm >90 (>60 ml/min/1.73 sqM) Est GFR (CKD-EPI)NonAf 79 (>60 ml/min/1.73 sqM) Glucose 71 L (74-99) mg/dL Calcium 9.9 (8.4-10.2) mg/dL Magnesium 1.6 (1.6-2.3) mg/dL Total Bilirubin 1.4 H (0.2-1.3) mg/dL AST 38 (17-59) U/L ALT 43 (4-49) U/L Alkaline Phosphatase 86 (38-126) U/L Total Protein 7.4 (6.3-8.2) g/dL Albumin 4.9 (3.5-5.0) g/dL Serum Alcohol <10 mg/dL Disposition Clinical Impression: Suicidal ideation, Alcohol abuse Disposition: ADMITTED IP TO THIS [facility] Referrals: None,Stated [Primary Care Provider] - 1-2 days Time of Disposition: 16:42
[2023-01-22 14:55] LABS: Basophils # (A) 0.1 k/uL (0-0.2); Basophils % (A) 1 %; Eosinophils # (A) 0.1 k/uL (0-0.7); Eosinophils % (A) 1 %; HCT 46.8 % (39.0-53.0); HGB 15.6 gm/dL (13.0-17.5); Lymphocytes # (A) 1.7 k/uL (1.0-4.8); Lymphocytes % (A) 18 %; MCH 35.6 pg (25.0-35.0); MCHC 33.3 g/dL (31.0-37.0); MCV 106.9 fL (80.0-100.0); Macrocytosis Moderate; Mean Platelet Volume 7.5; Monocytes # (A) 0.5 k/uL (0-1.0); Monocytes % (A) 5 %; Neutrophils # (A) 6.9 k/uL (1.3-7.7); Neutrophils % (A) 74 %; Platelet Count 315 k/uL (150-450); RBC 4.38 m/uL (4.30-5.90); RDW 13.6 % (11.5-15.5); WBC 9.4 k/uL (3.8-10.6)
[2023-01-22 15:13] LABS: ALT 43 U/L (4-49); AST 38 U/L (17-59); African American GFR (CKD) >90 (>60 ml/min/1.73 sqM); Albumin 4.9 g/dL (3.5-5.0); Alcohol <10 mg/dL; Alkaline Phosphatase 86 U/L (38-126); Anion Gap 21 mmol/L; Blood Urea Nitrogen 20 mg/dL (9-20); Calcium 9.9 mg/dL (8.4-10.2); Carbon Dioxide 21 mmol/L (22-30); Chloride 95 mmol/L (98-107); Glucose 71 mg/dL (74-99); Magnesium 1.6 mg/dL (1.6-2.3); Non-African American GFR(CKD) 79 (>60 ml/min/1.73 sqM); Potassium 5.5 mmol/L (3.5-5.1); Sodium 137 mmol/L (137-145); Total Bilirubin 1.4 mg/dL (0.2-1.3); Total Protein 7.4 g/dL (6.3-8.2)
[2023-01-22] MEDS ORDERED: LORazepam 2 MG/ML INJ IV STA (16:28)
[2023-01-22] MEDS ORDERED: IBUPROFEN 600 MG TAB PO STA (17:53)
[2023-01-22 17:55] LABS: HCT 41.8 % (39.0-53.0); HGB 13.8 gm/dL (13.0-17.5); MCH 34.9 pg (25.0-35.0); MCHC 33.1 g/dL (31.0-37.0); MCV 105.5 fL (80.0-100.0); Macrocytosis Moderate; Mean Platelet Volume 7.4; Platelet Count 268 k/uL (150-450); RBC 3.97 m/uL (4.30-5.90); RDW 13.6 % (11.5-15.5); WBC 9.7 k/uL (3.8-10.6)
[2023-01-22 18:05] LABS: ALT 40 U/L (4-49); AST 36 U/L (17-59); African American GFR (CKD) >90 (>60 ml/min/1.73 sqM); Albumin 4.2 g/dL (3.5-5.0); Alkaline Phosphatase 74 U/L (38-126); Anion Gap 15 mmol/L; Blood Urea Nitrogen 20 mg/dL (9-20); Calcium 9.1 mg/dL (8.4-10.2); Carbon Dioxide 21 mmol/L (22-30); Chloride 96 mmol/L (98-107); Glucose 91 mg/dL (74-99); Non-African American GFR(CKD) >90 (>60 ml/min/1.73 sqM); Potassium 4.5 mmol/L (3.5-5.1); Sodium 132 mmol/L (137-145); Total Bilirubin 1.2 mg/dL (0.2-1.3); Total Protein 6.6 g/dL (6.3-8.2)
[2023-01-22 18:09] LABS: Amphetamine Screen,Urine Not Detected (NotDetected); Barbiturate Screen,Urine Not Detected (NotDetected); Benzodiazepines Screen,Urine Not Detected (NotDetected); Cocaine Screen,Urine Not Detected (NotDetected); Methadone Screen, Urine Not Detected (NotDetected); Opiate Screen,Urine Not Detected (NotDetected); Oxycodone Screen, Urine Not Detected (NotDetected); Phencyclidine Screen,Urine Not Detected (NotDetected); Tricyclic Antidepressant,Urine Not Detected (NotDetected); Urn Cannabinoid Scrn Not Detected (NotDetected)
[2023-01-22 18:52] LABS: Appearance,Urine Clear (Clear); Bacteria,Urine Rare /hpf; Bilirubin,Urine Negative (Negative); Blood,Urine Large (Negative); Color,Urine Yellow; Glucose,Urine (UA) Negative (Negative); Ketones,Urine 4+ (Negative); Leukocyte Esterase,Urine Negative (Negative); Mucus,Urine Rare /hpf; Nitrite,Urine Negative (Negative); Protein,Urine Trace (Negative); RBC,Urine 11 /hpf (0-5); WBC,Urine 1 /hpf (0-5)
[2023-01-22] MEDS ORDERED: MAG HYDROX/AL HYDROX/SIMETH 30 ML CUP PO PRN (19:54)
[2023-01-22] MEDS ORDERED: MAGNESIUM HYDROXIDE 2,400 MG/30 ML CUP PO PRN (19:54)
[2023-01-22] MEDS ORDERED: LORazepam 1 MG TAB PO PRN (19:54)
[2023-01-22] MEDS ORDERED: LORazepam 2 MG/ML INJ IM PRN (20:04)
[2023-01-22] MEDS: LORazepam 1 MG TAB PO PRN (21:20)
[2023-01-22] MEDS: NICOTINE 14MG/24HR PATCH TRANSDERM SCH (21:20)
--- NOTE | 2023-01-22 21:49 | P.CONS ---
History of Present Illness - Reason for Consult Consult date: 01/22/23 - History of Present Illness The patient is a 48-year-old male with a PMH of subarachnoid hemorrhage, EtOH abuse, and tobacco abuse who presents to the emergency room with complaints of depression and suicidal ideation. The patient reports that he recently lost his job after a disagreement with his boss. He reports planning on having himself with a rope that he had at home. He reports also excessive alcohol use drinking a fifth of vodka daily. Reports his last drink was 2 AM. Denied experiencing chest discomfort, shortness of breath, fever, chills, cough, nausea, vomiting, abdominal pain, diarrhea. Review of systems: Pertinent positives and negatives as discussed in HPI, a complete review of systems was performed and all other systems are negative. Physical examination: General: non toxic, no distress, appears at stated age, normal weight Derm: no unusual rashes/lesions, no unusual ecchymoses, warm, dry Head: atraumatic, normocephalic, symmetric Eyes: EOMI, no lid lag, anicteric sclera ENT: Nose and ears atraumatic, no thrush, no pharyngeal erythema Neck: trachea midline, supple Mouth: no lip lesion, mucus membranes moist Cardiovascular: S1S2 reg, no murmur, no edema Lungs: CTA bilateral, no rhonchi, no rales , no accessory muscle use Abdominal: soft, nontender to palpation, no guarding Ext: no gross muscle atrophy, no contractures, Neuro: No gross focal neuro deficits noted Psych: Alert, oriented, appropriate affect Assessment: Alcohol, tobacco abuse Depression and suicidal ideation Imaging: None performed Data Review: Laboratory evaluation was reviewed with WBC count 9.7, hemoglobin 13.8, sodium 132, chloride 96, CO2 21, UA unremarkable, and a urine toxicology also unremarkable. Plan: Advised patient on importance of cessation of alcohol use Continue with thiamine CIWA protocol with Ativan Defer management of depression and suicidal ideation to primary psychiatry service Thank you for allowing us to participate in the care of this patient. We will follow peripherally. Do not hesitate to contact us with questions. Someone can be reached from the [facility] [place] hospitalist group at all hours of the day at [phone]. Past Medical History Past Medical History: No Reported History Additional Past Medical History / Comment(s): head injury History of Any Multi-Drug Resistant Organisms: None Reported Past Surgical History: Orthopedic Surgery Additional Past Surgical History / Comment(s): fingers/hand, right shoulder, right leg, right collarbone, right ankle Past Psychological History: No Psychological Hx Reported Smoking Status: Current every day smoker Past Alcohol Use History: Abuse, Daily Past Drug Use History: Cocaine, Opiates, Prescription Drug Abuse - Past Family History family Additional Family Medical History / Comment(s): Diabetes and heart disease in his father Medications and Allergies Home Medications Medication Instructions Recorded Confirmed Type No Known Home Medications 01/22/23 01/22/23 History Allergies Allergy/AdvReac Type Severity Reaction Status Date / Time No Known Allergies Allergy Verified 01/22/23 16:04 Physical Exam Vitals: Vital Signs Temp Pulse Pulse Resp BP BP Pulse Ox 01/22/23 20:56 98.1 F 84 16 134/81 01/22/23 18:00 85 16 140/84 01/22/23 14:09 98.1 F 115 H 20 138/101 99 Intake and Output 01/22/23 01/22/23 01/22/23 06:59 14:59 22:59 Other: Weight 68.039 kg Results CBC & Chem 7: 01/22/23 17:29 01/22/23 17:29 Labs: Abnormal Lab Results - Last 24 Hours (Table) 01/22/23 01/22/23 01/22/23 Range/Units 14:42 14:42 17:29 RBC 3.97 L (4.30-5.90) m/uL MCV 106.9 H 105.5 H (80.0-100.0) fL MCH 35.6 H (25.0-35.0) pg Sodium (137-145) mmol/L Potassium 5.5 H (3.5-5.1) mmol/L Chloride 95 L (98-107) mmol/L Carbon Dioxide 21 L (22-30) mmol/L Glucose 71 L (74-99) mg/dL Total Bilirubin 1.4 H (0.2-1.3) mg/dL Urine Protein (Negative) Urine Ketones (Negative) Urine Blood (Negative) Urine RBC (0-5) /hpf Urine Bacteria (None) /hpf Urine Mucus (None) /hpf 01/22/23 01/22/23 Range/Units 17:29 17:53 RBC (4.30-5.90) m/uL MCV (80.0-100.0) fL MCH (25.0-35.0) pg Sodium 132 L (137-145) mmol/L Potassium (3.5-5.1) mmol/L Chloride 96 L (98-107) mmol/L Carbon Dioxide 21 L (22-30) mmol/L Glucose (74-99) mg/dL Total Bilirubin (0.2-1.3) mg/dL Urine Protein Trace H (Negative) Urine Ketones 4+ H (Negative) Urine Blood Large H (Negative) Urine RBC 11 H (0-5) /hpf Urine Bacteria Rare H (None) /hpf Urine Mucus Rare H (None) /hpf
[2023-01-23] MEDS: LORazepam 1 MG TAB PO PRN ×3 (06:15→20:50)
[2023-01-23] MEDS: NICOTINE 14MG/24HR PATCH TRANSDERM SCH (08:06)
[2023-01-23] MEDS: MULTIVITAMINS, THERA 1 EACH TAB PO SCH (08:06)
[2023-01-23] MEDS: ACETAMINOPHEN TAB 325 MG TAB PO PRN ×2 (08:06→22:38)
[2023-01-23] MEDS: THIAMINE 100 MG TAB PO SCH (08:06)
[2023-01-23] MEDS: FOLIC ACID 1 MG TAB PO SCH (08:06)
[2023-01-23] MEDS ORDERED: traZODone HCL 50 MG TAB PO PRN (09:46)
--- NOTE | 2023-01-23 09:48 | P.HP ---
Psychiatric H&P - . H&P Date: 01/23/23 History & Physical: Allergies Allergy/AdvReac Type Severity Reaction Status Date / Time No Known Allergies Allergy Verified 01/22/23 16:04 Vital Signs Temp 97.9 F 01/23/23 06:19 Pulse 94 01/23/23 06:19 Resp 17 01/23/23 06:19 BP 132/88 01/23/23 06:19 Pulse Ox 98 01/23/23 06:19 FiO2 Intake & Output 01/22/23 01/23/23 01/23/23 18:59 06:59 18:59 Weight 68.039 kg 68.039 kg Laboratory Last Values WBC 9.7 k/uL (3.8-10.6) 01/22/23 17:29 RBC 3.97 m/uL (4.30-5.90) L 01/22/23 17:29 Hgb 13.8 gm/dL (13.0-17.5) 01/22/23 17:29 Hct 41.8 % (39.0-53.0) 01/22/23 17:29 MCV 105.5 fL (80.0-100.0) H 01/22/23 17:29 MCH 34.9 pg (25.0-35.0) 01/22/23 17:29 MCHC 33.1 g/dL (31.0-37.0) 01/22/23 17:29 RDW 13.6 % (11.5-15.5) 01/22/23 17:29 Plt Count 268 k/uL (150-450) 01/22/23 17:29 MPV 7.4 01/22/23 17:29 Neutrophils % 74 % 01/22/23 14:42 Lymphocytes % 18 % 01/22/23 14:42 Monocytes % 5 % 01/22/23 14:42 Eosinophils % 1 % 01/22/23 14:42 Basophils % 1 % 01/22/23 14:42 Neutrophils # 6.9 k/uL (1.3-7.7) 01/22/23 14:42 Lymphocytes # 1.7 k/uL (1.0-4.8) 01/22/23 14:42 Monocytes # 0.5 k/uL (0-1.0) 01/22/23 14:42 Eosinophils # 0.1 k/uL (0-0.7) 01/22/23 14:42 Basophils # 0.1 k/uL (0-0.2) 01/22/23 14:42 Macrocytosis Moderate 01/22/23 17:29 Sodium 132 mmol/L (137-145) L 01/22/23 17:29 Potassium 4.5 mmol/L (3.5-5.1) 01/22/23 17:29 Chloride 96 mmol/L (98-107) L 01/22/23 17:29 Carbon Dioxide 21 mmol/L (22-30) L 01/22/23 17:29 Anion Gap 15 mmol/L 01/22/23 17:29 BUN 20 mg/dL (9-20) 01/22/23 17:29 Creatinine 0.99 mg/dL (0.66-1.25) 01/22/23 17:29 Est GFR (CKD-EPI)AfAm >90 (>60 ml/min/1.73 sqM) 01/22/23 17:29 Est GFR (CKD-EPI)NonAf >90 (>60 ml/min/1.73 sqM) 01/22/23 17:29 Glucose 91 mg/dL (74-99) 01/22/23 17: Calcium 9.1 mg/dL (8.4-10.2) 01/22/23 17: Magnesium 1.6 mg/dL (1.6-2.3) 01/22/23 14:42 Total Bilirubin 1.2 mg/dL (0.2-1.3) 01/22/23 17:29 AST 36 U/L (17-59) 01/22/23 17:29 ALT 40 U/L (4-49) 01/22/23 17:29 Alkaline Phosphatase 74 U/L (38-126) 01/22/23 17:29 Total Protein 6.6 g/dL (6.3-8.2) 01/22/23 17:29 Albumin 4.2 g/dL (3.5-5.0) 01/22/23 17:29 TSH 0.469 mIU/L (0.465-4.680) 01/22/23 17:29 Urine Color Yellow 01/22/23 17:53 Urine Appearance Clear (Clear) 01/22/23 17:53 Urine pH 6.0 (5.0-8.0) 01/22/23 17:53 Ur Specific [place] 1.020 (1.001-1.035) 01/22/23 17:53 Urine Protein Trace (Negative) H 01/22/23 17:53 Urine Glucose (UA) Negative (Negative) 01/22/23 17:53 Urine Ketones 4+ (Negative) H 01/22/23 17:53 Urine Blood Large (Negative) H 01/22/23 17:53 Urine Nitrite Negative (Negative) 01/22/23 17:53 Urine Bilirubin Negative (Negative) 01/22/23 17:53 Urine Urobilinogen 2.0 mg/dL (<2.0) 01/22/23 17:53 Ur Leukocyte Esterase Negative (Negative) 01/22/23 17:53 Urine RBC 11 /hpf (0-5) H 01/22/23 17:53 Urine WBC 1 /hpf (0-5) 01/22/23 17:53 Urine Bacteria Rare /hpf (None) H 01/22/23 17:53 Urine Mucus Rare /hpf (None) H 01/22/23 17:53 Urine Opiates Screen Not Detected (NotDetected) 01/22/23 17:29 Ur Oxycodone Screen Not Detected (NotDetected) 01/22/23 17:29 Urine Methadone Screen Not Detected (NotDetected) 01/22/23 17:29 Ur Propoxyphene Screen Not Detected (NotDetected) 01/22/23 17:29 Ur Barbiturates Screen Not Detected (NotDetected) 01/22/23 17:29 U Tricyclic Antidepress Not Detected (NotDetected) 01/22/23 17:29 Ur Phencyclidine Scrn Not Detected (NotDetected) 01/22/23 17:29 Ur Amphetamines Screen Not Detected (NotDetected) 01/22/23 17:29 U Methamphetamines Scrn Not Detected (NotDetected) 01/22/23 17:29 U Benzodiazepines Scrn Not Detected (NotDetected) 01/22/23 17:29 Urine Cocaine Screen Not Detected (NotDetected) 01/22/23 17:29 U Marijuana (THC) Screen Not Detected (NotDetected) 01/22/23 17:29 Serum Alcohol <10 mg/dL 01/22/23 14:42 Coronavirus (PCR) Not Detected (Not Detectd) 01/22/23 18:48 01/23/23 08:50 IDENTIFYING DATA: Patient is a 48-year-old male who is currently homeless, single, and unemployed HPI: Patient presented to the ED with suicidal ideation with plan to hang himself. Patient had walked many miles to this hospital for treatment. He also endorsed drinking daily prior to arrival. Recent stressors include loss of job and housing. He was given Ativan and fluids in the ED. Patient presents voluntarily at the psychiatric unit. 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 He endorses having had a withdrawal seizure when he tried to stop drinking by himself. He has been receiving Ativan per [facility] protocol to help with withdrawals which he states has been helpful. He currently reports some diaphoresis and anxiety but otherwise denies alcohol withdrawal symptoms. Patient has a history of DUI and states that he has never attended rehab. He expressed interest in rehab past hospitalization but states that he never attended. Gene has a history of MDD requiring hospitalization most recently in 2019. He endorses feeling "blah" and describes that he has been depressed for the past few weeks. He says he was drinking to help with sleep. He endorses low energy, reduced appetite, and thoughts of worthlessness. When asked about interests, he vaguely states he enjoys video games but does not appear to be excited while discussing it. He states that he has been noncompliant with psychiatric medications and says that he never followed up outpatient following hospit alization in 2019. In risk assessment, he currently endorses passive suicidal ideation but denies active suicidal ideation, intent or plan. He denies homicidal ideation. He denies auditory and visual hallucinations. He denies access to guns or weapons. In the past, he admitted to using opiates in the past but currently denies this and states that he was taking opiate medications as prescribed due to surgeries he has had. PAST PSYCHIATRIC HISTORY: Admitted to an inpatient psych facility in [place] approximately 9 years ago however claims that it was for substance related problems. He states that he might of been prescribed Zoloft but that he has not continued to take this. He denies psychiatric outpatient follow-up. He was hospitalized at [facility] in May 2019 for MDD and alcohol withdrawal and discharged on Zoloft 100 mg and trazodone 300 mg Suicide attempts: 3 times - tried to hang himself. He says he put a gun to his head before. PMH: Fell down flight of stairs 7 years ago. Past Medical History: No Reported History Additional Past Medical History / Comment(s): head injury History of Any Multi-Drug Resistant Organisms: None Reported Past Surgical History: Orthopedic Surgery Additional Past Surgical History / Comment(s): fingers/hand, right shoulder, right leg, right collarbone, right ankle ALLERGIES: NKDA CHEMICAL DEPENDENCY HISTORY: as per HPI He states that he was 17 years old when he began drinking Cannabis: In the past but denies currently FAMILY PSYCHIATRIC/SUBSTANCE USE HISTORY: Father - alcohol use. Mother - gambling. Paternal grandfather - alcohol use. Mother's side- alcohol use also. SOCIAL HISTORY: He states that he was born and raised in [place] and his family moved to [facility]. 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 He has 1 daughter with whom he is not in touch and says "she wants nothing to do with me." Never . Younger sister is the person he is closest to. 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 MENTAL STATUS EXAM: General Appearance: Patient appears to be stated age is tall and thin, alert, and directable. Marginal hygiene and grooming. Appears mildly diaphoretic Behavior: Patient is calmly seated without any agitated behavior. Speech: Patient's speech is fluent and nonpressured. Mood/Affect: Patient reports their mood is depressed, affect is incongruent and using humor Suicidality/Homicidality: Patient denies having any suicidal or homicidal ideation intent or plan. Perceptions: Patient denies any auditory or visual hallucinations. Though content/process: There is no evidence of any delusional thought content and thought process is linear and goal-directed. Memory and concentration: AOX3, grossly intact for the purposes of this session. Can spell "WORLD" backwards Judgment and insight: poor STRENGTHS/WEAKNESSES: strength is that patient is resilient, weaknesses that patient has a long history of alcohol use INTELLECT: average IMPRESSIONS: Major depressive disorder, recurrent, severe, without psychotic features Alcohol use disorder, moderate, currently in withdrawal Hx likely TBI PLAN: -Patient is admitted under voluntary status to MHU for stabilization of psychiatric symptoms and safety. Patient signed adult voluntary form and medication consent and is placed in patient's chart. -Medications : Start Prozac 20 mg daily for mood Start trazodone 50 mg qHS PRN for sleep Start Librium 25 mg 3 times a day for alcohol withdrawal to be tapered as tolerated Consider Naltrexone for tomorrow - pt agreeable with this -CIWA every 6 hours for alcohol withdrawal. Continue to monitor vital signs. -Ativan PRN for agitation/aggression -Thiamine, folate for etoh use -NRT - nicotine patch -Patient was counselled on substance abuse and desired to cut back on use. Motivational interviewing. Patient interested in rehab following discharge from psychiatric hospitalization -Patient was informed of the risks, benefits and side effects of the medication and patient verbally consented to taking the medications. Patient signed med consent form and was placed in chart. -Internal Medicine consult to perform medical evaluation and physical. -SW on board for discharge planning. Encourage patient to participate in groups to work on coping skills. 01/23/23 09:01
[2023-01-23] MEDS: FLUoxetine HCL 20 MG CAP PO SCH (10:30)
[2023-01-23 10:38] LABS: Chol/HDL Ratio 3.4 Ratio; HDL Cholesterol 61.4 mg/dL (40.00-60.00); LDL Cholesterol,Calculated 57.8 mg/dL (0.0-131.0); VLDL Calculation 89.8 mg/dL (5.00-40.00)
[2023-01-23 10:50] LABS: LDL Cholesterol,Direct Reflex 94.9 mg/dL (0.00-129.00)
[2023-01-23] MEDS: IBUPROFEN 600 MG TAB PO PRN ×2 (11:09→21:40)
[2023-01-23] MEDS: NICOTINE 21MG/24HR PATCH TRANSDERM SCH (11:09)
[2023-01-24] MEDS: IBUPROFEN 600 MG TAB PO PRN ×3 (05:07→21:41)
[2023-01-24] MEDS: LORazepam 1 MG TAB PO PRN ×3 (06:00→12:04)
[2023-01-24] MEDS: FLUoxetine HCL 20 MG CAP PO SCH (08:52)
[2023-01-24] MEDS: THIAMINE 100 MG TAB PO SCH (08:52)
[2023-01-24] MEDS: NICOTINE 21MG/24HR PATCH TRANSDERM SCH (08:52)
[2023-01-24] MEDS: FOLIC ACID 1 MG TAB PO SCH (08:52)
[2023-01-24] MEDS: MULTIVITAMINS, THERA 1 EACH TAB PO SCH (08:52)
[2023-01-24] MEDS ORDERED: diphenhydrAMINE 25 MG CAP PO PRN (11:03)
--- NOTE | 2023-01-24 11:17 | P.PN ---
Progress Note - Text Progress Note Date: 01/24/23 Interval History: Patient was seen [wandering the hallways] and was directable and agreeable to speak with mortgage loan underwriter in the office. Patient claims that he is still having some withdrawal symptoms including tremors. He claims that the medications have been helping him with the withdrawal so far. He states that he is interested in trying naltrexone for cravings of alcohol. He states that he lost his job recently and also was evicted from his home and states that "I lost everything" and claims that he "turned to the bottle" to start drinking. States that he is accepted into rehab however has not made the call yet to discuss an intake date for him. He states that he is still having some depression and anxiety at this time, claims that he is trying to go to groups, he is more future oriented today. At this time patient denies any suicidal or homical ideations, intent or plan. Patient denies any auditory, visual hallucinations and denies any paranoia or delusions. Patient denies any side effects from the medications and has been compliant with meds. Mental Status Exam: General Appearance: Patient appears to be stated age is tall and thin, alert, and directable. Marginal hygiene and grooming. Behavior: Patient is calmly seated without any agitated behavior. Tends to cooperate. Speech: Patient's speech is fluent and nonpressured. Mood/Affect: Patient reports their mood is depressed and anxious, improving mildly, affect is congruent and constricted Suicidality/Homicidality: Patient denies having any suicidal or homicidal ideation intent or plan. Perceptions: Patient denies any auditory or visual hallucinations. Though content/process: There is no evidence of any delusional thought content and thought process is linear and goal-directed. Focus on his symptoms. Rambling at times. Memory and concentration: AOX3, grossly intact for the purposes of this session Judgment and insight: poor, improving mildly IMPRESSIONS: Major depressive disorder, recurrent, severe, without psychotic features Alcohol use disorder, moderate, currently in withdrawal nicotine dependence homelessness PLAN: -Patient is admitted under voluntary status to [facility]HU for stabilization of psychiatric symptoms and safety. Patient signed adult voluntary form and medication consent and is placed in patient's chart. -Medications : increase Prozac 30 mg daily for mood d/c trazodone and replace with remeron 15 mg qhs for insomnia/mood added seroquel 50 mg qhs prn for insomnia/mood adjunct decrease Librium 20 mg 3 times a day for alcohol withdrawal to be tapered as tolerated start Naltrexone 50 mg daily for etoh cravings -CIWA every 6 hours for alcohol withdrawal. Continue to monitor vital signs. -Ativan PRN for agitation/aggression -Thiamine, folate for etoh use -NRT - nicotine patch -SW on board for discharge planning. Encourage patient to participate in groups to work on coping skills. patient is accepted to and currently awaiting intake date once patient is psychiatrically cleared. hopeful for discharge in 2- 3 days.
[2023-01-24] MEDS: NALTREXONE HCL 50 MG TAB PO SCH (11:18)
[2023-01-24] MEDS ORDERED: MIRTAZAPINE 15 MG TAB PO SCH (21:00)
[2023-01-24] MEDS: QUEtiapine 50 MG TAB PO PRN (21:40)
[2023-01-25 07:06] VITALS: TEMP 98.1
[2023-01-25] MEDS ORDERED: FLUoxetine HCL 10 MG CAP PO SCH (09:00)
[2023-01-25] MEDS: NICOTINE 21MG/24HR PATCH TRANSDERM SCH (09:02)
[2023-01-25] MEDS: FOLIC ACID 1 MG TAB PO SCH (09:03)
[2023-01-25] MEDS: NALTREXONE HCL 50 MG TAB PO SCH (09:03)
[2023-01-25] MEDS: MULTIVITAMINS, THERA 1 EACH TAB PO SCH (09:03)
[2023-01-25] MEDS: THIAMINE 100 MG TAB PO SCH (09:04)
[2023-01-25] MEDS: IBUPROFEN 600 MG TAB PO PRN ×2 (09:05→20:08)
--- NOTE | 2023-01-25 10:38 | P.PN ---
Progress Note - Text Progress Note Date: 01/25/23 Interval History: Patient was seen sitting on group and was directable and agreeable to speak with marine underwriter in the office. Patient claims that he is doing much better today, he claims that his mood and anxiety been improving. He claims that he was able to get much better sleep last night, he did require the extra Seroquel dose however states that he woke up feeling much more refreshed. He appears to be more brighter today and his affect. He states that his withdrawal symptoms have been improving, is denying any tremors at this time. He states that he is eating fairly, trying to go to groups. He remains focused on getting into rehab however continues to state that he tried to call them several times however has not gotten through. At this time patient denies any suicidal or homical ideations, intent or plan. Patient denies any auditory, visual hallucinations and denies any paranoia or delusions. Patient denies any side effects from the medications and has been compliant with meds. Mental Status Exam: General Appearance: Patient appears to be stated age is tall and thin, alert, and directable. Improving hygiene and grooming. Behavior: Patient is calmly seated without any agitated behavior. More cooperative today. Speech: Patient's speech is fluent and nonpressured. Mood/Affect: Patient reports their mood is improving mildly, affect is congruent Suicidality/Homicidality: Patient denies having any suicidal or homicidal ideation intent or plan. Perceptions: Patient denies any auditory or visual hallucinations. Though content/process: There is no evidence of any delusional thought content and thought process is linear and goal-directed. Memory and concentration: AOX3, grossly intact for the purposes of this session Judgment and insight: poor, improving mildly IMPRESSIONS: Major depressive disorder, recurrent, severe, without psychotic features Alcohol use disorder, moderate, currently in withdrawal nicotine dependence homelessness PLAN: -Patient is admitted under voluntary status to [facility] for stabilization of psychiatric symptoms and safety. Patient signed adult voluntary form and medication consent and is placed in patient's chart. -Medications : increase Prozac 30 mg daily for mood increase remeron 15 mg qhs for insomnia/mood continue seroquel 50 mg qhs prn for insomnia/mood adjunct decrease Librium 10 mg 3 times a day for alcohol withdrawal to be tapered as tolerated continue Naltrexone 50 mg daily for etoh cravings -CIWA every 6 hours for alcohol withdrawal. Continue to monitor vital signs. -Ativan PRN for agitation/aggression -Thiamine, folate for etoh use -NRT - nicotine patch -SW on board for discharge planning. Encourage patient to participate in groups to work on coping skills. patient is accepted to and currently awaiting intake date. hopeful for discharge in 1-2 days directly to rehab.
[2023-01-25] MEDS: NICOTINE GUM (POLACRILEX) 2 MG GUM BUCCAL PRN ×2 (10:41→15:55)
[2023-01-25] MEDS: ACETAMINOPHEN TAB 325 MG TAB PO PRN ×2 (12:44→20:07)
[2023-01-25] MEDS: MIRTAZAPINE 15 MG TAB PO SCH (20:03)
[2023-01-25] MEDS: QUEtiapine 50 MG TAB PO PRN (21:19)
[2023-01-25] MEDS: LORazepam 1 MG TAB PO PRN (21:22)
[2023-01-26] MEDS: NICOTINE 21MG/24HR PATCH TRANSDERM SCH (07:09)
[2023-01-26 07:11] VITALS: BP 134/90; PULSE 95; RESP 15
[2023-01-26] MEDS: MULTIVITAMINS, THERA 1 EACH TAB PO SCH (08:53)
[2023-01-26] MEDS: FLUoxetine HCL 20 MG CAP PO SCH (08:53)
[2023-01-26] MEDS: FOLIC ACID 1 MG TAB PO SCH (08:53)
[2023-01-26] MEDS: THIAMINE 100 MG TAB PO SCH (08:53)
[2023-01-26] MEDS: NALTREXONE HCL 50 MG TAB PO SCH (08:53)
[2023-01-26] MEDS: IBUPROFEN 600 MG TAB PO PRN ×2 (08:54→20:59)
[2023-01-26] MEDS: LORazepam 1 MG TAB PO PRN ×3 (11:21→22:11)
--- NOTE | 2023-01-26 13:05 | P.PN ---
Progress Note - Text Progress Note Date: 01/26/23 Interval History: Patient was seen today wandering the hallways and was directable and agreeable to speak with literary writer in the office. Patient claims that he is doing overall better today, he claims that his mood and anxiety been improving mildly since yesterday. He claims that he is a bit upset today due to the fact that he is not getting a response from [facility] and does not know where he will be going upon discharge. He states that "I need to get into rehab to keep my sobriety". He claims that he is going to groups at this time and trying to participate as best as he can. claims that his withdrawal sx are also improving and we spoke about discontinuing the Librium tomorrow morning before discharge. Claims that he is sleeping much better with the Ativan and Remeron. He states that he is eating fairly, trying to go to groups. At this time patient denies any suicidal or homical ideations, intent or plan. Patient denies any auditory, visual hallucinations and denies any paranoia or delusions. Patient denies any side effects from the medications and has been compliant with meds. Mental Status Exam: General Appearance: Patient appears to be stated age is tall and thin, alert, and directable. Improving hygiene and grooming. Behavior: Patient is calmly seated without any agitated behavior. More cooperative today. Speech: Patient's speech is fluent and nonpressured. Mood/Affect: Patient reports their mood is improving mildly, affect is congruent and improving Suicidality/Homicidality: Patient denies having any suicidal or homicidal ideation intent or plan. Perceptions: Patient denies any auditory or visual hallucinations. Though content/process: There is no evidence of any delusional thought content and thought process is linear and goal-directed. Memory and concentration: AOX3, grossly intact for the purposes of this session Judgment and insight: improving mildly IMPRESSIONS: Major depressive disorder, recurrent, severe, without psychotic features Alcohol use disorder, moderate, currently in withdrawal nicotine dependence homelessness PLAN: -Patient is admitted under voluntary status to [facility]HU for stabilization of psychiatric symptoms and safety. Patient signed adult voluntary form and medication consent and is placed in patient's chart. -Medications : continue Prozac 40 mg daily for mood remeron 15 mg qhs for insomnia/mood continue seroquel 50 mg qhs prn for insomnia/mood adjunct decrease Librium 10 mg 2 times a day for alcohol withdrawal to be d/c tomorrow. continue Naltrexone 50 mg daily for etoh cravings -Ativan PRN for agitation/aggression -Thiamine, folate for etoh use -NRT - nicotine patch -SW on board for discharge planning. Encourage patient to participate in groups to work on coping skills. plan on discharge tomorrow to rehab.
[2023-01-26] MEDS: NICOTINE GUM (POLACRILEX) 2 MG GUM BUCCAL PRN (15:18)
[2023-01-26] MEDS ORDERED: QUEtiapine 50 MG TAB PO SCH (21:00)
[2023-01-26] MEDS: MIRTAZAPINE 15 MG TAB PO SCH (21:00)
[2023-01-27] MEDS: MULTIVITAMINS, THERA 1 EACH TAB PO SCH (08:19)
[2023-01-27] MEDS: NALTREXONE HCL 50 MG TAB PO SCH (08:19)
[2023-01-27] MEDS: NICOTINE 21MG/24HR PATCH TRANSDERM SCH (08:19)
[2023-01-27] MEDS: FOLIC ACID 1 MG TAB PO SCH (08:19)
[2023-01-27] MEDS: FLUoxetine HCL 20 MG CAP PO SCH (08:19)
[2023-01-27] MEDS: THIAMINE 100 MG TAB PO SCH (08:19)
[2023-01-27] MEDS: IBUPROFEN 600 MG TAB PO PRN (08:20)
--- NOTE | 2023-01-27 11:24 | P.DS ---
Providers Date of admission: 01/22/23 19:51 Expected date of discharge: 01/27/23 Attending physician: Efrain Bruno MD Consults: 01/22/23 19:54 Consult Physician Routine Consulting Provider: Jenifer Physician Consult Reason/Comments: medical management Do you want consulting provider notified?: Yes Primary care physician: Stated None - Discharge Diagnosis(es) (1) Major depressive disorder, recurrent severe without psychotic features Status: Acute Priority: High (2) Alcohol use disorder, moderate, dependence Status: Acute Priority: High (3) Nicotine dependence Status: Acute Priority: Low (4) Homelessness Status: Acute Priority: High Hospital Course: Admission HPI: Admission note was completed by Dr Vasquez "Patient is a 48-year-old male who is currently homeless, single, and unemployed. Patient presented to the ED with suicidal ideation with plan to hang himself. Patient had walked many miles to this hospital for treatment. He also endorsed drinking daily prior to arrival. Recent stressors include loss of job and housing. He was given Ativan and fluids in the ED. Patient presents voluntarily at the psychiatric unit. 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 He endorses having had a withdrawal seizure when he tried to stop drinking by himself. He has been receiving Ativan per [facility] protocol to help with withdrawals which he states has been helpful. He currently reports some diaphoresis and anxiety but otherwise denies alcohol withdrawal symptoms. Patient has a history of DUI and states that he has never attended rehab. He expressed interest in rehab past hospitalization but states that he never attended. Gene has a history of MDD requiring hospitalization most recently in 2019. He endorses feeling "blah" and describes that he has been depressed for the past few weeks. He says he was drinking to help with sleep. He endorses low energy, reduced appetite, and thoughts of worthlessness. When asked about interests, he vaguely states he enjoys video games but does not appear to be excited while discussing it. He states that he has been noncompliant with psychiatric medications and says that he never followed up outpatient following hospitalization in 2019. In risk assessment, he currently endorses passive suicidal ideation but denies active suicidal ideation, intent or plan. He denies homicidal ideation. He denies auditory and visual hallucinations. He denies access to guns or weapons. In the past, he admitted to using opiates in the past but currently denies this and states that he was taking opiate medications as prescribed due to surgeries he has had." Hospital course: Upon admission to the unit patient was directable and agreeable to commence treatment and signed adult voluntary form. Patient got along well with other patients on the unit and followed unit protocol. Patient was compliant with the medications and denied any side effects throughout hospital course. Patient was started on CIWA protocol with when necessary Ativan along with Librium scheduled that was tapered off to prevent alcohol withdrawal symptoms. Patient was also started on Prozac and increased the dose of 40 mg daily for mood/anxiety, Remeron 30 mg daily at bedtime for insomnia/mood, Seroquel 50 mg daily at bedtime scheduled for insomnia/mood adjunct, naltrexone by mouth 50 mg daily for alcohol cravings.. Patient spoke of his stressors and engaged in therapy both group and individual. Patient was also seen by medical team for history and physical exam. Throughout the course of the hospitalization patient gradually improved with regards to mood, anxiety, suicidal thoughts, withdrawal symptoms, sleep and became more future oriented with improved insight and judgment. On the day of discharge patient denied any suicidal or homicidal ideations intent or plan denied any auditory or visual hallucinations. Patient endorsed wanting to live for his health, sobriety and family. The patient denied any access to guns or weapons. Patient denied any paranoia and did not endorse any delusions. Patient does have a significant history of substance abuse and was counseled on abstaining from all substances including alcohol and marijuana. Patient was agreeable to go to [facility] today for inpatient substance use treatment. Patient was also counseled on the medications and need for regular compliance and was encouraged to follow-up with their outpatient appointment for mental health and also for primary care. Patient's ride arrived early this morning and a mental health assessment was completed by RAPHAEL Salomon prior to discharge this morning, please see note for further details. Mental status exam: please refer to mental status exam completed by expert medical writer on 01/26 and also to note written by RAPHAEL Salomon this morning on day of discharge Impression: Major depressive disorder, recurrent, severe without psychotic features Alcohol use disorder moderate dependence Homelessness Nicotine dependence Plan: -Continue with discharge today as patient has improved and stabilized psychiatrically and is not currently an imminent threat to himself and/or others. Patient will remain at chronically elevated risk for harm to self and/or others due to his impulsivity and substance abuse. -Continue medications: Prozac 40 mg daily for mood/anxiety, Remeron 30 mg daily at bedtime for insomnia/mood, Seroquel 50 mg daily at bedtime scheduled for insomnia/mood adjunct, naltrexone by mouth 50 mg daily for alcohol cravings. -Patient was counseled on the need for medication compliance and appropriate follow-up at mental health and also primary care for medical issues. Patient verbalized understanding and agreed. -Social work to help coordinate patient's discharge today to [facility], patient's ride arrived early this morning to take him there. Social work also to arrange for patients follow up appointments with [facility] for psychiatric care along with follow up with primary care provider. -Patient counseled on abstaining from recreational drugs and marijuana and alcohol. Was informed/educated on the adverse effects on their physical and mental health. Patient verbally agreed and understood. -Patient was instructed to return to the hospital or seek immediate medical care if their psychiatric or medical symptoms do worsen or reoccur. Allergies Allergy/AdvReac Type Severity Reaction Status Date / Time No Known Allergies Allergy Verified 01/22/23 16:04 Laboratory Results WBC 9.7 k/uL (3.8-10.6) 01/22/23 17: RBC 3.97 m/uL (4.30-5.90) L 01/22/23 17: Hgb 13.8 gm/dL (13.0-17.5) 01/22/23 17: Hct 41.8 % (39.0-53.0) 01/22/23 17: MCV 105.5 fL (80.0-100.0) H 01/22/23 17: MCH 34.9 pg (25.0-35.0) 01/22/23: MCHC 33.1 g/dL (31.0-37.0) 01/22/23 17: RDW 13.6 % (11.5-15.5) 01/22/23 17: Plt Count 268 k/uL (150-450) 01/22/23 17: MPV 7.4 01/22/23 17:29 Neutrophils % 74 % 01/22/23 14:42 Lymphocytes % 18 % 01/22/23 14:42 Monocytes % 5 % 01/22/23 14:42 Eosinophils % 1 % 01/22/23 14:42 Basophils % 1 % 01/22/23 14:42 Neutrophils # 6.9 k/uL (1.3-7.7) 01/22/23 14:42 Lymphocytes # 1.7 k/uL (1.0-4.8) 01/22/23 14:42 Monocytes # 0.5 k/uL (0-1.0) 01/22/23 14:42 Eosinophils # 0.1 k/uL (0-0.7) 01/22/23 14:42 Basophils # 0.1 k/uL (0-0.2) 01/22/23 14:42 Macrocytosis Moderate 01/22/23 17:29 Sodium 132 mmol/L (137-145) L 01/22/23 17:29 Potassium 4.5 mmol/L (3.5-5.1) 01/22/23 17:29 Chloride 96 mmol/L (98-107) L 01/22/23 17:29 Carbon Dioxide 21 mmol/L (22-30) L 01/22/23 17:29 Anion Gap 15 mmol/L 01/22/23 17:29 BUN 20 mg/dL (9-20) 01/22/23 17:29 Creatinine 0.99 mg/dL (0.66-1.25) 01/22/23 17:29 Est GFR (CKD-EPI)AfAm >90 (>60 ml/min/1.73 sqM) 01/22/23 17:29 Est GFR (CKD-EPI)NonAf >90 (>60 ml/min/1.73 sqM) 01/22/23 17:29 Glucose 91 mg/dL (74-99) 01/22/23 17:[address] Glu mg/dL 117 mg/dL 01/22/23 17:29 Hemoglobin A1c 5.7 % (<=6.0) 01/22/23 17:29 Calcium 9.1 mg/dL (8.4-10.2) 01/22/23 17:29 Magnesium 1.6 mg/dL (1.6-2.3) 01/22/23 14:42 Total Bilirubin 1.2 mg/dL (0.2-1.3) 01/22/23 17:29 AST 36 U/L (17-59) 01/22/23 17:29 ALT 40 U/L (4-49) 01/22/23 17:29 Alkaline Phosphatase 74 U/L (38-126) 01/22/23 17:29 Total Protein 6.6 g/dL (6.3-8.2) 01/22/23 17: Albumin 4.2 g/dL (3.5-5.0) 01/22/23 17:29 Triglycerides 449.00 mg/dL (0.00-149.00) H 01/22/23 17: Cholesterol 209.00 mg/dL (0.00-200.00) H 01/22/23 17: LDL Cholesterol Direct 94.90 mg/dL (0.00-129.00) 01/22/23 17: LDL Cholesterol, Calc 57.8 mg/dL (0.0-131.0) 01/22/23 17:29 VLDL Cholesterol, Calc 89.80 mg/dL (5.00-40.00) H 01/22/23 17:29 HDL Cholesterol 61.40 mg/dL (40.00-60.00) H 01/22/23 17: Cholesterol/HDL Ratio 3.40 Ratio 01/22/23 17: TSH 0.469 mIU/L (0.465-4.680) 01/22/23 17:29 Urine Color Yellow 01/22/23 17:53 Urine Appearance Clear (Clear) 01/22/23 17:53 Urine pH 6.0 (5.0-8.0) 01/22/23 17:53 Ur Specific [place] 1.020 (1.001-1.035) 01/22/23 17:53 Urine Protein Trace (Negative) H 01/22/23 17:53 Urine Glucose (UA) Negative (Negative) 01/22/23 17:53 Urine Ketones 4+ (Negative) H 01/22/23 17:53 Urine Blood Large (Negative) H 01/22/23 17:53 Urine Nitrite Negative (Negative) 01/22/23 17:53 Urine Bilirubin Negative (Negative) 01/22/23 17:53 Urine Urobilinogen 2.0 mg/dL (<2.0) 01/22/23 17:53 Ur Leukocyte Esterase Negative (Negative) 01/22/23 17:53 Urine RBC 11 /hpf (0-5) H 01/22/23 17:53 Urine WBC 1 /hpf (0-5) 01/22/23 17:53 Urine Bacteria Rare /hpf (None) H 01/22/23 17:53 Urine Mucus Rare /hpf (None) H 01/22/23 17:53 Urine Opiates Screen Not Detected (NotDetected) 01/22/23 17:29 Ur Oxycodone Screen Not Detected (NotDetected) 01/22/23 17:29 Urine Methadone Screen Not Detected (NotDetected) 01/22/23 17:29 Ur Propoxyphene Screen Not Detected (NotDetected) 01/22/23 17:29 Ur Barbiturates Screen Not Detected (NotDetected) 01/22/23 17:29 U Tricyclic Antidepress Not Detected (NotDetected) 01/22/23 17:29 Ur Phencyclidine Scrn Not Detected (NotDetected) 01/22/23 17:29 Ur Amphetamines Screen Not Detected (NotDetected) 01/22/23 17:29 U Methamphetamines Scrn Not Detected (NotDetected) 01/22/23 17:29 U Benzodiazepines Scrn Not Detected (NotDetected) 01/22/23 17:29 Urine Cocaine Screen Not Detected (NotDetected) 01/22/23 17:29 U Marijuana (THC) Screen Not Detected (NotDetected) 01/22/23 17:29 Serum Alcohol <10 mg/dL 01/22/23 14:42 Coronavirus (PCR) Not Detected (Not Detectd) 01/22/23 18:48 Vital Signs Temp 98.1 F 01/26/23 07:10 Pulse 95 01/26/23 07:10 Resp 15 01/26/23 07:10 BP 134/90 01/26/23 07:10 Pulse Ox 98 01/26/23 07:10 FiO2 Patient Condition at Discharge: Stable Plan - Discharge Summary Discharge Rx Participant: No New Discharge Prescriptions: New Nicotine 21Mg/24Hr Patch [Habitrol] 1 patch TRANSDERM DAILY 14 Days #14 patch Ibuprofen [Motrin] 600 mg PO Q6HR PRN 30 Days #120 tab PRN Reason: Pain Multivitamins, Thera [Multivitamin (formulary)] 1 each PO DAILY 30 Days #30 tab Nicotine Gum (Polacrilex) [Nicorette] 2 mg BUCCAL Q4HR PRN 30 Days #180 pieceofgum PRN Reason: Nicotine Cravings Mirtazapine [Remeron] 30 mg PO HS 30 Days #60 tab QUEtiapine [SEROquel] 50 mg PO HS 30 Days #30 tab Acetaminophen Tab [Tylenol] 650 mg PO Q8HR PRN 30 Days #180 tab PRN Reason: Moderate Pain (Scale 4 To 6) FLUoxetine HCL [PROzac] 40 mg PO DAILY 30 Days #60 cap Naltrexone HCl [Revia] 50 mg PO DAILY 30 Days #30 tab Discharge Medication List Acetaminophen Tab [Tylenol] 650 mg PO Q8HR PRN 30 Days #180 tab 01/26/23 [Rx] FLUoxetine HCL [PROzac] 40 mg PO DAILY 30 Days #60 cap 01/26/23 [Rx] Ibuprofen [Motrin] 600 mg PO Q6HR PRN 30 Days #120 tab 01/26/23 [Rx] Mirtazapine [Remeron] 30 mg PO HS 30 Days #60 tab 01/26/23 [Rx] Multivitamins, Thera [Multivitamin (formulary)] 1 each PO DAILY 30 Days #30 tab 01/26/23 [Rx] Naltrexone HCl [Revia] 50 mg PO DAILY 30 Days #30 tab 01/26/23 [Rx] Nicotine 21Mg/24Hr Patch [Habitrol] 1 patch TRANSDERM DAILY 14 Days #14 patch 01/26/23 [Rx] Nicotine Gum (Polacrilex) [Nicorette] 2 mg BUCCAL Q4HR PRN 30 Days #180 pieceofgum 01/26/23 [Rx] QUEtiapine [SEROquel] 50 mg PO HS 30 Days #30 tab 01/26/23 [Rx] Follow up Appointment(s)/Referral(s): [facility] [Outside] (arrival at rehab 10am 01-27-23.) [facility] [NON-STAFF] - 1 Week Patient Instructions/Handouts: How to Stop Smoking (DC), Depression (DC), Abuse of Alcohol (DC) Activity/Diet/Wound Care/Special Instructions: Avoid the use of street drugs and alcohol. Take all medications as prescribed. When you are in need of refills on your medications, please contact your medical provider and/or outpatient psychiatrist to have this done. Please go to scheduled outpatient appointments for aftercare treatment. If symptoms return or become worse, call the crisis line at and/or go to the nearest emergency room for evaluation. Discharge Disposition: OTHER INSTITUTION NOT DEFINED
== END 2023-01-27 08:25 | disposition other institution (70) | DRG 751 ==
LOC: EC 13:54 → 3MHU 19:51
PROVIDERS: ADMIT Psychiatry & Neurology Psychiatry; ATTEND Psychiatry & Neurology Psychiatry
DX: F33.2 Major depressive disorder, recurrent severe without psychotic features (principal); F10.20 Alcohol dependence, uncomplicated; Z20.822 Contact with and (suspected) exposure to COVID-19; Z28.310 Unvaccinated for COVID-19; Y90.0 Blood alcohol level of less than 20 mg/100 ml; F17.210 Nicotine dependence, cigarettes, uncomplicated; R45.851 Suicidal ideations; T50.906A Underdosing of unspecified drugs, medicaments and biological substances, initial encounter; Z91.128 Patient's intentional underdosing of medication regimen for other reason; Z71.6 Tobacco abuse counseling; Z59.6 Low income; Z56.0 Unemployment, unspecified
CPT/HCPCS: 36415; 80053; 80061; 80306; 80320; 81001; 82075; 83036; 83721; 83735; 84443; 85025; 85027; 87635; 96361; 96374; 99285

== ENCOUNTER 2023-11-26 22:41 | Emergency (ER) | payer OTHER ==
[2023-11-26 23:07] VITALS: TEMP 97.6
--- NOTE | 2023-11-26 23:10 | ED ---
General Adult HPI - General Chief complaint: Fall Stated complaint: etoh Time Seen by Provider: 11/26/23 22:42 Source: patient, EMS Mode of arrival: EMS Limitations: no limitations - History of Present Illness Initial comments: Dictation was produced using [employer] dictation software. please excuse any grammatical, word or spelling errors. Chief Complaint: 48-year-old male presents to the emergency department for fall History of Present Illness: Patient is a 48-year-old lower by police. They were trying to do a field sobriety test when patient stumbled landed on the ground hurting his elbows. Patient states he had multiple alcoholic beverages today. Patient denies any complaints. Refusing tetanus shot The ROS documented in this emergency department record has been reviewed and confirmed by me. Those systems with pertinent positive or negative responses have been documented in the HPI. All other systems are other negative and/or noncontributory. - Related Data Previous Rx's Medication Instructions Recorded Acetaminophen Tab [Tylenol] 650 mg PO Q8HR PRN 30 Days #180 tab 01/26/23 FLUoxetine HCL [PROzac] 40 mg PO DAILY 30 Days #60 cap 01/26/23 Ibuprofen [Motrin] 600 mg PO Q6HR PRN 30 Days #120 tab 01/26/23 Mirtazapine [Remeron] 30 mg PO HS 30 Days #60 tab 01/26/23 Multivitamins, Thera [Multivitamin 1 each PO DAILY 30 Days #30 tab 01/26/23 (formulary)] Naltrexone HCl [Revia] 50 mg PO DAILY 30 Days #30 tab 01/26/23 Nicotine 21Mg/24Hr Patch [Habitrol] 1 patch TRANSDERM DAILY 14 Days 01/26/23 #14 patch Nicotine Gum (Polacrilex) 2 mg BUCCAL Q4HR PRN 30 Days #180 01/26/23 [Nicorette] pieceofgum QUEtiapine [SEROquel] 50 mg PO HS 30 Days #30 tab 01/26/23 Allergies Allergy/AdvReac Type Severity Reaction Status Date / Time No Known Allergies Allergy Verified 01/22/23 16:04 Review of Systems ROS Statement: Those systems with pertinent positive or pertinent negative responses have been documented in the HPI. ROS Other: All systems not noted in ROS Statement are negative. Past Medical History Past Medical History: No Reported History Additional Past Medical History / Comment(s): head injury History of Any Multi-Drug Resistant Organisms: None Reported Past Surgical History: Orthopedic Surgery Additional Past Surgical History / Comment(s): fingers/hand, right shoulder, right leg, right collarbone, right ankle Past Anesthesia/Blood Transfusion Reactions: No Reported Reaction Past Psychological History: No Psychological Hx Reported Smoking Status: Current every day smoker Past Alcohol Use History: Abuse, Daily Past Drug Use History: Cocaine, Opiates, Prescription Drug Abuse - Past Family History family Additional Family Medical History / Comment(s): Diabetes and heart disease in his father General Exam - General Exam Comments Initial Comments: PHYSICAL EXAM: General Impression: Alert and oriented x3, not in acute distress HEENT: Normocephalic atraumatic, extra-ocular movements intact, pupils equal and reactive to light bilaterally, mucous membranes moist. Cardiovascular: Heart regular rate and rhythm Chest: Able to complete full sentences, no retractions, no tachypnea Abdomen: abdomen soft, non-tender, non-distended, no organomegaly Musculoskeletal: Pulses present and equal in all extremities, no peripheral edema Motor: no focal deficits noted Neurological: CN II-XII grossly intact, no focal motor or sensory deficits noted Skin: I abrasions to the bilateral elbows Psych: Normal affect and mood Limitations: no limitations Course Vital Signs 11/26/23 11/26/23 11/26/23 22:43 23:10 23:50 Temperature 97.6 F Pulse Rate 96 89 82 Respiratory 20 18 16 Rate Blood Pressure 171/110 148/101 137/94 O2 Sat by Pulse 96 94 L 94 L Oximetry - Reevaluation(s) Reevaluation #1: 11/27/23 01:14 Patient evaluated at 1:13 AM he is awake alert oriented no acute distress. His workup is essentially negative. Patient is a daily alcoholic. States that he also used cocaine which is why he thinks he is so awake. Patient does not have friends or family to come pick him up to take him home. Medical Decision Making - Medical Decision Making Was pt. sent in by a medical professional or institution (, PA, ELECTRICAL TECHNICIAN, urgent care, hospital, or half-way...) When possible be specific @ -No Did you speak to anyone other than the patient for history (EMS, parent, family, police, friend...)? What history was obtained from this source @ -No Did you review nursing and triage notes (agree or disagree)? Why? @ -I reviewed and agree with nursing and triage notes Were old charts reviewed (outside hosp., previous admission, EMS record, old EKG, old radiological studies, urgent care reports/EKG's, half-way records)? Report findings @ -No old charts were reviewed Differential Diagnosis (chest pain, altered mental status, abdominal pain women, abdominal pain men, vaginal bleeding, musculoskeletal, weakness, fever, dyspnea, syncope, headache, dizziness, GI bleed, back pain, seizure, CVA, palpatations, mental health)? @ -Differential Altered Mental Status: Hypoglycemia, DKA, hypercapnia, ETOH, overdose, CO poisoning, trauma, myxedema coma, HTN encephalopathy, infection, encephalitis, psychosis, intercranial hemorrhage, hepatic encephalopathy, meningitis, CVA, this is not meant to be an all-inclusive list EKG interpreted by me (3pts min.). @ -None done X-rays interpreted by me (1pt min.). @ -Bilateral elbow x-ray and chest x-ray shows no acute processes. CT interpreted by me (1pt min.). @ -CT brain shows no acute processes. U/S interpreted by me (1pt. min.). @ -None done What testing was considered but not performed or refused? (CT, X-rays, U/S, labs)? Why? @ -None What meds were considered but not given or refused? Why? @ -None Did you discuss the management of the patient with other professionals (professionals i.e. , PA, ELECTRICAL TECHNICIAN, lab, RT, psych nurse, criminal justice social worker, billing typist, teacher, production officer, employment evaluator/case manager)? Give summary @ -No Was smoking cessation discussed for >3mins.? @ -No Was critical care preformed (if so, how long)? @ -No Were there social determinants of health that impacted care today? How? (Homelessness, low income, unemployed, alcoholism, drug addiction, trans portation, low edu. Level, literacy, decrease access to med. care, usp, rehab)? @ -No Was there de-escalation of care discussed even if they declined (Discuss DNR or withdrawal of care, Hospice)? DNR status @ -No What co-morbidities impacted this encounter? (DM, HTN, Smoking, COPD, CAD, Cancer, CVA, ARF, Chemo, Hep., AIDS, mental health diagnosis, sleep apnea, morbid obesity)? @ -None Was patient admitted / discharged? Hospital course, mention meds given and route, prescriptions, significant lab abnormalities, going to OR and other pertinent info. @ -48-year-old male presents emergency department after falling during a field sobriety test after he was pulled over by police for erratic driving. Vital signs upon arrival are within acceptable limits. Labs and imaging is unremarkable. Patient observed emergency department for several hours. Reevaluated bedside and is awake alert and in no acute distress. Patient is of sound mind and judgment. Patient tolerating oral intake and ambulating without difficulties. Undiagnosed new problem with uncertain prognosis? @ -No Drug Therapy requiring intensive monitoring for toxicity (Heparin, Nitro, Insulin, Cardizem)? @ -No Were any procedures done? @ -No Diagnosis/symptom? Acute, or Chronic, or Acute on Chronic? Uncomplicated ( without systemic symptoms) or Complicated (systemic symptoms)? @ -Fall, alcohol intoxication Side effects of treatment? @ -No Exacerbation, Progression, or Severe Exacerbation? @ -No Poses a threat to life or bodily function? How? (Chest pain, USA, NH, pneumonia, PE, COPD, DKA, ARF, appy, cholecystitis, CVA, Diverticulitis, Homicidal, Suicidal, threat to staff... and all critical care pts) @ -No - Lab Data Result diagrams: 11/26/23 23:00 11/26/23 23:00 Lab Results 11/26/23 11/26/23 Range/Units 23:00 23:00 WBC 8.6 (3.8-10.6) k/uL RBC 4.86 (4.30-5.90) m/uL Hgb 16.3 (13.0-17.5) gm/dL Hct 50.3 (39.0-53.0) % MCV 103.6 H (80.0-100.0) fL MCH 33.6 (25.0-35.0) pg MCHC 32.5 (31.0-37.0) g/dL RDW 13.6 (11.5-15.5) % Plt Count 200 (150-450) k/uL MPV 7.5 Neutrophils % 73 % Lymphocytes % 19 % Monocytes % 4 % Eosinophils % 1 % Basophils % 1 % Neutrophils # 6.3 (1.3-7.7) k/uL Lymphocytes # 1.6 (1.0-4.8) k/uL Monocytes # 0.4 (0-1.0) k/uL Eosinophils # 0.1 (0-0.7) k/uL Basophils # 0.1 (0-0.2) k/uL Macrocytosis Slight Sodium 138 (137-145) mmol/L Potassium 3.0 L (3.5-5.1) mmol/L Chloride 106 (98-107) mmol/L Carbon Dioxide 17 L (22-30) mmol/L Anion Gap 15 mmol/L BUN 19 (9-20) mg/dL Creatinine 0.93 (0.66-1.25) mg/dL Est GFR (CKD-EPI)AfAm >90 (>60 ml/min/1.73 sqM) Est GFR (CKD-EPI)NonAf >90 (>60 ml/min/1.73 sqM) Glucose 129 H (74-99) mg/dL Calcium 8.5 (8.4-10.2) mg/dL Serum Alcohol 408 H* mg/dL Disposition Clinical Impression: Fall Disposition: HOME SELF-CARE Condition: Fair Instructions (If sedation given, give patient instructions): Fall Prevention (ED) Is patient prescribed a controlled substance at d/c from ED?: No Referrals: None,Stated [Primary Care Provider] - 1-2 days Time of Disposition: 01:16
--- NOTE | 2023-11-26 23:15 | XR ---
EXAMINATION TYPE: XR chest 1V portable DATE OF EXAM: 11/26/2023 COMPARISON: Prior chest x-ray 2011. HISTORY: Fall TECHNIQUE: Single frontal view of the chest is obtained. FINDINGS: There is no suspicious focal air space opacity, pleural effusion, or pneumothorax seen. T he cardiac silhouette size is stable and within normal limits. Healed fracture of the right clavicle redemonstrated. IMPRESSION: No acute cardiopulmonary process.
--- NOTE | 2023-11-26 23:16 | XR ---
EXAMINATION TYPE: XR elbow limited bilateral DATE OF EXAM: 11/26/2023 CLINICAL HISTORY: fall TECHNIQUE: Frontal and lateral images of the bilateral elbows are obtained. COMPARISON: None FINDINGS: There is no acute fracture/dislocation evident in either elbow. No abnormal fat pad signs are seen bilaterally. The overlying soft tissue appears unremarkable bilaterally. IMPRESSION: There is no acute displaced fracture in either elbow.
[2023-11-26 23:24] LABS: African American GFR (CKD) >90 (>60 ml/min/1.73 sqM); Anion Gap 15 mmol/L; Blood Urea Nitrogen 19 mg/dL (9-20); Calcium 8.5 mg/dL (8.4-10.2); Carbon Dioxide 17 mmol/L (22-30); Chloride 106 mmol/L (98-107); Glucose 129 mg/dL (74-99); Non-African American GFR(CKD) >90 (>60 ml/min/1.73 sqM); Sodium 138 mmol/L (137-145)
[2023-11-26 23:26] LABS: Basophils # (A) 0.1 k/uL (0-0.2); Basophils % (A) 1 %; Eosinophils # (A) 0.1 k/uL (0-0.7); Eosinophils % (A) 1 %; HCT 50.3 % (39.0-53.0); HGB 16.3 gm/dL (13.0-17.5); Lymphocytes # (A) 1.6 k/uL (1.0-4.8); Lymphocytes % (A) 19 %; MCH 33.6 pg (25.0-35.0); MCHC 32.5 g/dL (31.0-37.0); MCV 103.6 fL (80.0-100.0); Macrocytosis Slight; Mean Platelet Volume 7.5; Monocytes # (A) 0.4 k/uL (0-1.0); Monocytes % (A) 4 %; Neutrophils # (A) 6.3 k/uL (1.3-7.7); Neutrophils % (A) 73 %; Platelet Count 200 k/uL (150-450); RBC 4.86 m/uL (4.30-5.90); RDW 13.6 % (11.5-15.5); WBC 8.6 k/uL (3.8-10.6)
--- NOTE | 2023-11-26 23:29 | CT ---
EXAMINATION TYPE: CT brain wo con DATE OF EXAM: 11/26/2023 COMPARISON: Prior CT June 16, 2022 HISTORY: ETOH fall. CT DLP: 1154.2 mGycm. Automated Exposure Control for Dose Reduction was Utilized. TECHNIQUE: CT scan of the head is performed without contrast. FINDINGS: There is no acute intracranial hemorrhage, mass effect, or midline shift identified. The ventricles and sulci are within normal limits in size for patient's age. Killian-white matter different iation is maintained. Prominent CSF posterior inferior aspect posterior fossa is redemonstrated suspi cious for keenan cisterna magna. The calvarium is intact. The globes are intact and the visualized sinuses are clear. IMPRESSION: No acute intracranial hemorrhage or midline shift is seen.
[2023-11-26 23:45] LABS: Alcohol 408 mg/dL
[2023-11-26 23:54] VITALS: RESP 16
[2023-11-27 03:00] VITALS: BP 142/89; PULSE 99
== END 2023-11-27 02:28 | disposition home or self-care (01) ==
LOC: EC 22:41
DX: F10.929 Alcohol use, unspecified with intoxication, unspecified (principal); F17.200 Nicotine dependence, unspecified, uncomplicated; W18.30XA Fall on same level, unspecified, initial encounter; Y90.8 Blood alcohol level of 240 mg/100 ml or more
CPT/HCPCS: 36415; 80048; 85025; 73070; 71045; 70450; 99285; G0480; 80320

== ENCOUNTER 2024-03-20 10:04 | Inpatient (IN) | payer OTHER ==
--- NOTE | 2024-03-20 10:38 | ED ---
General Adult HPI - General Chief complaint: GI Bleed Stated complaint: Vomiting Time Seen by Provider: 03/20/24 10:09 Source: patient, EMS Mode of arrival: EMS Limitations: no limitations - History of Present Illness Initial comments: Dictation was produced using [employer] dictation software. please excuse any grammatical, word or spelling errors. Chief Complaint: 49-year-old male with abdominal pain and prior blood per rectum History of Present Illness: Patient is a 49-year-old male states that for the last 2 days he has been having left-sided abdominal pain. Yesterday he had some bowel movements that were bright red and bloody. He states that yesterday he also had some vomiting which had some bright red blood in it as well. Patient states that he felt really weak at work yesterday. Does not take any anticoagulation medications. Denies any fever, chills or night sweats. The ROS documented in this emergency department record has been reviewed and confirmed by me. Those systems with pertinent positive or negative responses have been documented in the HPI. All other systems are other negative and/or noncontributory. - Related Data Previous Rx's Medication Instructions Recorded Ibuprofen [Motrin] 600 mg PO Q6HR PRN 30 Days #120 tab 01/26/23 Allergies Allergy/AdvReac Type Severity Reaction Status Date / Time No Known Allergies Allergy Verified 03/20/24 11:53 Review of Systems ROS Statement: Those systems with pertinent positive or pertinent negative responses have been documented in the HPI. ROS Other: All systems not noted in ROS Statement are negative. Past Medical History Past Medical History: No Reported History Additional Past Medical History / Comment(s): head injury, stomach ulcer 15 years ago History of Any Multi-Drug Resistant Organisms: None Reported Past Surgical History: Orthopedic Surgery Additional Past Surgical History / Comment(s): fingers/hand, right shoulder, right leg, right collarbone, right ankle Past Anesthesia/Blood Transfusion Reactions: No Reported Reaction Past Psychological History: No Psychological Hx Reported Smoking Status: Current every day smoker Past Alcohol Use History: Abuse, Daily Past Drug Use History: Cocaine, Opiates, Prescription Drug Abuse - Past Family History family Additional Family Medical History / Comment(s): Diabetes and heart disease in his father General Exam - General Exam Comments Initial Comments: PHYSICAL EXAM: General Impression: Alert and oriented x3, not in acute distress, slightly pale HEENT: Normocephalic atraumatic, extra-ocular movements intact, pupils equal and reactive to light bilaterally, mucous membranes moist. Cardiovascular: Heart regular rate and rhythm Chest: Able to complete full sentences, no retractions, no tachypnea Abdomen: abdomen soft, palpatory tenderness to the left abdomen, non-distended, no organomegaly Musculoskeletal: Pulses present and equal in all extremities, no peripheral edema Motor: no focal deficits noted Neurological: CN II-XII grossly intact, no focal motor or sensory deficits noted Skin: Intact with no visualized rashes Psych: Normal affect and mood Limitations: no limitations Course Vital Signs 03/20/24 03/20/24 10:11 11:47 Temperature 98.0 F Pulse Rate 121 H 137 H Respiratory 18 18 Rate Blood Pressure 127/87 122/68 O2 Sat by Pulse 100 95 Oximetry Medical Decision Making - Medical Decision Making Was pt. sent in by a medical professional or institution (, PA, VOLTAGE TESTER, urgent care, hospital, or fpc...) When possible be specific @ -No Did you speak to anyone other than the patient for history (EMS, parent, family, police, friend...)? What history was obtained from this source @ -No Did you review nursing and triage notes (agree or disagree)? Why? @ -I reviewed and agree with nursing and triage notes Were old charts reviewed (outside hosp., previous admission, EMS record, old EKG, old radiological studies, urgent care reports/EKG's, fpc records)? Report findings @ -No old charts were reviewed Differential Diagnosis (chest pain, altered mental status, abdominal pain women, abdominal pain men, vaginal bleeding, musculoskeletal, weakness, fever, dyspnea , syncope, headache, dizziness, GI bleed, back pain, seizure, CVA, palpatations, mental health)? @ -Differential GI Bleed: Esophageal varices, aortoenteric fistula, Ayana-Cordero, gastritis, peptic ulcer disease, diverticulosis, inflammatory bowel disease, hemorrhoids, fissure, colitis, malignancy, Meckel's diverticulum, this is not meant to be an all- inclusive list. EKG interpreted by me (3pts min.). @ -My EKG interpretation: Ventricular rate 114, sinus tachycardia,. 136, QRS 85, QTc 379. No MI prolongation, no QTC prolongation, no ST or T-wave changes noted. Overall, this EKG is unremarkable X-rays interpreted by me (1pt min.). @ -None done CT interpreted by me (1pt min.). @ -CT of the abdomen pelvis shows no acute processes U/S interpreted by me (1pt. min.). @ -None done What testing was considered but not performed or refused? (CT, X-rays, U/S, labs)? Why? @ -None What meds were considered but not given or refused? Why? @ -None Was smoking cessation discussed for >3mins.? @ -No Were there social determinants of health that impacted care today? How? (Homelessness, low income, unemployed, alcoholism, drug addiction, transportation, low edu. Level, literacy, decrease access to med. care, group home, rehab)? @ -No Was there de-escalation of care discussed even if they declined (Discuss DNR or withdrawal of care, Hospice)? DNR status @ -No What co-morbidities impacted this encounter? (DM, HTN, Smoking, COPD, CAD, Cancer, CVA, ARF, Chemo, Hep., AIDS, mental health diagnosis, sleep apnea, morbid obesity)? @ -None Was patient admitted / discharged? Hospital course, mention meds given and route, prescriptions, significant lab abnormalities, going to OR and other per tinent info. @ -49-year-old male with chief report of bright blood per rectum. Vital signs upon arrival shows tachycardia. Blood pressure is within acceptable limits. Hemoglobin is 5.9, hematocrit of 17.3. Coag panel is unremarkable. Metabolic panel is within acceptable limits. Patient given Protonix, 2 units of blood and IV fluids. Will be admitted with consultation to GI and general surgery. Case discussed with hospitalist for admission. Did you discuss the management of the patient with other professionals (professionals i.e. , PA, VOLTAGE TESTER, lab, RT, psych nurse, social and political studies professor, body and frame technician, teacher, chief risk officer, oil field caser)? Give summary @ -See above Was critical care preformed (if so, how long)? @ -Yes, 33 minutes Undiagnosed new problem with uncertain prognosis? @ -No Drug Therapy requiring intensive monitoring for toxicity (Heparin, Nitro, Insulin, Cardizem)? @ -No Were any procedures done? @ -No Diagnosis/symptom? Acute, or Chronic, or Acute on Chronic? Uncomplicated (without systemic symptoms) or Complicated (systemic symptoms)? @ -GI bleed complicated by acute blood loss anemia Side effects of treatment? @ -No Exacerbation, Progression, or Severe Exacerbation? @ -No Poses a threat to life or bodily function? How? (Chest pain, USA, NH, pneumonia, PE, COPD, DKA, ARF, appy, cholecystitis, CVA, Diverticulitis, Homicidal, Suicidal, threat to staff... and all critical care pts) @ -yes - Lab Data Result diagrams: 03/20/24 10:43 03/20/24 10:43 Lab Results 03/20/24 03/20/24 03/20/24 Range/Units 10:43 10:43 10:43 WBC 8.2 (3.8-10.6) k/uL RBC 1.57 L (4.30-5.90) m/uL Hgb 5.9 L* (13.0-17.5) gm/dL Hct 17.3 L* (39.0-53.0) % MCV 110.3 H (80.0-100.0) fL MCH 38.0 H (25.0-35.0) pg MCHC 34.4 (31.0-37.0) g/dL RDW 17.2 H (11.5-15.5) % Plt Count 149 L (150-450) k/uL MPV 8.0 Neutrophils % (Manual) 79 % Lymphocytes % (Manual) 18 % Monocytes % (Manual) 2 % Basophils % (Manual) 1 % Metamyelocytes % 1 % Myelocytes % 1 % Neutrophils # (Manual) 6.48 (1.3-7.7) k/uL Lymphocytes # (Manual) 1.48 (1.0-4.8) k/uL Monocytes # (Manual) 0.16 (0-1.0) k/uL Basophils # (Manual) 0.08 (0-0.2) k/uL Metamyelocytes # (Man) 0.08 H (0) k/uL Myelocytes # (Manual) 0.08 H (0) k/uL Nucleated RBCs 0 (0-0) /100 WBC Manual Slide Review Performed Polychromasia Present Anisocytosis Slight Macrocytosis Marked A PT 11.2 (10.0-12.5) sec INR 1.0 (<1.2) APTT 21.2 L (22.0-30.0) sec Sodium (137-145) mmol/L Potassium (3.5-5.1) mmol/L Chloride (98-107) mmol/L Carbon Dioxide (22-30) mmol/L Anion Gap mmol/L BUN (9-20) mg/dL Creatinine (0.66-1.25) mg/dL Est GFR (CKD-EPI)AfAm (>60 ml/min/1.73 sqM) Est GFR (CKD-EPI)NonAf (>60 ml/min/1.73 sqM) Glucose (74-99) mg/dL Calcium (8.4-10.2) mg/dL Total Bilirubin (0.2-1.3) mg/dL AST (17-59) U/L ALT (4-49) U/L Alkaline Phosphatase (38-126) U/L Total Protein (6.3-8.2) g/dL Albumin (3.5-5.0) g/dL Lipase (23-300) U/L Blood Type Recheck No Previous Record Bld Type Recheck Status CABO Indicated Spec Expiration Date 03/23/2024 - 234203/20/24 Range/Units 10:43 WBC (3.8-10.6) k/uL RBC (4.30-5.90) m/uL Hgb (13.0-17.5) gm/dL Hct (39.0-53.0) % MCV (80.0-100.0) fL MCH (25.0-35.0) pg MCHC (31.0-37.0) g/dL RDW (11.5-15.5) % Plt Count (150-450) k/uL MPV Neutrophils % (Manual) % Lymphocytes % (Manual) % Monocytes % (Manual) % Basophils % (Manual) % Metamyelocytes % % Myelocytes % % Neutrophils # (Manual) (1.3-7.7) k/uL Lymphocytes # (Manual) (1.0-4.8) k/uL Monocytes # (Manual) (0-1.0) k/uL Basophils # (Manual) (0-0.2) k/uL Metamyelocytes # (Man) (0) k/uL Myelocytes # (Manual) (0) k/uL Nucleated RBCs (0-0) /100 WBC Manual Slide Review Polychromasia Anisocytosis Macrocytosis PT (10.0-12.5) sec INR (<1.2) APTT (22.0-30.0) sec Sodium 133 L (137-145) mmol/L Potassium 4.5 (3.5-5.1) mmol/L Chloride 103 (98-107) mmol/L Carbon Dioxide 20 L (22-30) mmol/L Anion Gap 10 mmol/L BUN 49 H (9-20) mg/dL Creatinine 0.98 (0.66-1.25) mg/dL Est GFR (CKD-EPI)AfAm >90 (>60 ml/min/1.73 sqM) Est GFR (CKD-EPI)NonAf >90 (>60 ml/min/1.73 sqM) Glucose 145 H (74-99) mg/dL Calcium 8.2 L (8.4-10.2) mg/dL Total Bilirubin 0.7 (0.2-1.3) mg/dL AST 42 (17-59) U/L ALT 25 (4-49) U/L Alkaline Phosphatase 37 L (38-126) U/L Total Protein 4.9 L (6.3-8.2) g/dL Albumin 3.1 L (3.5-5.0) g/dL Lipase 130 (23-300) U/L Blood Type Recheck Bld Type Recheck Status Spec Expiration Date Disposition Clinical Impression: BRBPR (bright red blood per rectum) Disposition: ADMITTED IP TO THIS [facility] Condition: Fair Referrals: None,Stated [Primary Care Provider] - 1-2 days Decision Time: 12:11
[2024-03-20] MEDS: PANTOPRAZOLE 40 MG/10 ML VIAL IVP STA (10:55)
[2024-03-20] MEDS: ONDANSETRON 4 MG/2 ML VIAL IVP STA (10:55)
[2024-03-20 11:07] LABS: Anisocytosis Slight; MCHC 34.4 g/dL (31.0-37.0); MCV 110.3 fL (80.0-100.0); Macrocytosis Marked; Platelet Count 149 k/uL (150-450); RBC 1.57 m/uL (4.30-5.90); RDW 17.2 % (11.5-15.5); WBC 8.2 k/uL (3.8-10.6)
[2024-03-20 11:10] LABS: HGB 5.9 gm/dL (13.0-17.5)
[2024-03-20 11:11] LABS: HCT 17.3 % (39.0-53.0)
[2024-03-20 11:14] LABS: ALT 25 U/L (4-49); AST 42 U/L (17-59); African American GFR (CKD) >90 (>60 ml/min/1.73 sqM); Albumin 3.1 g/dL (3.5-5.0); Alkaline Phosphatase 37 U/L (38-126); Anion Gap 10 mmol/L; Blood Urea Nitrogen 49 mg/dL (9-20); Calcium 8.2 mg/dL (8.4-10.2); Carbon Dioxide 20 mmol/L (22-30); Chloride 103 mmol/L (98-107); Glucose 145 mg/dL (74-99); Lipase 130 U/L (23-300); Non-African American GFR(CKD) >90 (>60 ml/min/1.73 sqM); Potassium 4.5 mmol/L (3.5-5.1); Sodium 133 mmol/L (137-145); Total Bilirubin 0.7 mg/dL (0.2-1.3); Total Protein 4.9 g/dL (6.3-8.2)
[2024-03-20] MEDS: MORPHINE SULFATE 4 MG/ML SYRINGE IVP STA (11:30)
[2024-03-20] MEDS: MORPHINE SULFATE 4 MG/ML SYRINGE IVP PRN (11:31)
[2024-03-20 11:34] LABS: Prothrombin Time 11.2 sec (10.0-12.5)
[2024-03-20 11:44] LABS: Partial Thromboplastin Time 21.2 sec (22.0-30.0)
[2024-03-20 11:59] LABS: Basophils # (M) 0.08 k/uL (0-0.2); Lymphocytes # (M) 1.48 k/uL (1.0-4.8); Metamyelocytes # (M) 0.08 k/uL (0); Metamyelocytes % 1 %; Monocytes # (M) 0.16 k/uL (0-1.0); Myelocytes # (M) 0.08 k/uL (0); Myelocytes % 1 %; Neutrophils # (M) 6.48 k/uL (1.3-7.7); Neutrophils % (M) 79 %; Nucleated Red Blood Cells 0 /100 WBC (0-0); Total Cells Counted 200
[2024-03-20 12:00] LABS: Polychromasia Present
--- NOTE | 2024-03-20 12:01 | CT ---
EXAMINATION TYPE: CT abdomen pelvis w con CT DLP: 621 mGycm, Automated exposure control for dose reduction was used. DATE OF EXAM: 03/20/2024 11:50 AM COMPARISON: None CLINICAL INDICATION:Male, 49 years old with history of left abdominal pain, BRBPR; LLQ pain TECHNIQUE: Standard CT of the abdomen and pelvis following the administration of 100 cc of Isovue 3 00 IV contrast material. Coronal and sagittal reformats were performed. FINDINGS: LOWER CHEST: Unremarkable ABDOMEN LIVER: Unremarkable GALLBLADDER AND BILE DUCTS: Contracted gallbladder. No biliary duct dilatation. PANCREAS: Unremarkable. SPLEEN: Unremarkable. ADRENAL GLANDS: Unremarkable. KIDNEYS AND URETERS: No evidence of hydronephrosis. Bilateral punctate nonobstructive bilateral renal calculi measuring up to 2 mm. Approximately 4 right renal calculi and 5 left renal calculi. Contrast is demonstrated within both collecting systems on the delayed phase. PELVIS BLADDER: Incompletely distended but grossly unremarkable. REPRODUCTIVE: Unremarkable. ABDOMEN & PELVIS STOMACH AND BOWEL: Stomach and duodenum are unremarkable. No focal bowel wall thickening or surroundi ng inflammatory changes. The appendix is within normal limits. No hyperdense material identified with in the bowel. No evidence of bowel obstruction. PERITONEUM: No evidence of pneumoperitoneum or free fluid. VASCULATURE: No evidence of aortic aneurysm. MUSCULOSKELETAL: No acute osseous abnormalities LYMPH NODES: No gross evidence for lymphadenopathy. SOFT TISSUE/ABDOMINAL WALL: Unremarkable IMPRESSION: 1. No acute abdominal/pelvic process. 2. Nonobstructive punctate bilateral renal calculi.
[2024-03-20] MEDS ORDERED: ACETAMINOPHEN TAB 325 MG TAB PO PRN (12:05)
[2024-03-20] MEDS ORDERED: NALOXONE 0.4 MG/ML 1 ML VIAL IV PRN (12:05)
--- NOTE | 2024-03-20 12:43 | P.HPIM ---
History of Present Illness 49-year-old male came in with complaints of bright blood per rectum has been going on for couple days patient had multiple such bowel movements patient is found to have hemoglobin of 5.7, previous hemoglobin being 16.3 in month of November. Patient does take Motrin at home. REVIEW OF SYSTEMS: All other systems are negative except those mentioned in the HPI PHYSICAL EXAMINATION: GENERAL: The patient is alert and oriented x3, not in any acute distress. Well developed, well nourished. HEENT: Pupils are round and equally reacting to light. EOMI. No scleral icterus. Patient has conjunctival pallor. Normocephalic, atraumatic. No pharyngeal erythema. No thyromegaly. CARDIOVASCULAR: S1 and S2 present. No murmurs, rubs, or gallops. PULMONARY: Chest is clear to auscultation, no wheezing or crackles. ABDOMEN: Soft, nontender, nondistended, normoactive bowel sounds. No palpable organomegaly. MUSCULOSKELETAL: No joint swelling or deformity. EXTREMITIES: No cyanosis, clubbing, or pedal edema. NEUROLOGICAL: Gross neurological examination did not reveal any focal deficits. SKIN: No rashes. Assessment and plan Acute GI bleed probably lower GI bleed, possibly diverticular bleed. Gastroenterology was will be consulted. Will transfuse 2 units of PRBC patient may need more Hypovolemic hyponatremia patient was started on IV fluids -Tachycardia secondary to severe GI bleed DVT prophylaxis: Nonpharmacological DVT prophylaxis with ambulation and SCDs due to significant GI bleed Past Medical History Past Medical History: No Reported History Additional Past Medical History / Comment(s): head injury, stomach ulcer 15 years ago History of Any Multi-Drug Resistant Organisms: None Reported Past Surgical History: Orthopedic Surgery Additional Past Surgical History / Comment(s): fingers/hand, right shoulder, right leg, right collarbone, right ankle Past Anesthesia/Blood Transfusion Reactions: No Reported Reaction Past Psychological History: No Psychological Hx Reported Smoking Status: Current every day smoker Past Alcohol Use History: Abuse, Daily Past Drug Use History: Cocaine, Opiates, Prescription Drug Abuse - Past Family History family Additional Family Medical History / Comment(s): Diabetes and heart disease in his father Medications and Allergies Home Medications Medication Instructions Recorded Confirmed Type Ibuprofen [Motrin] 600 mg PO Q6HR PRN 30 Days #120 tab 01/26/23 03/20/24 Rx Allergies Allergy/AdvReac Type Severity Reaction Status Date / Time No Known Allergies Allergy Verified 03/20/24 11:53 Physical Exam Vitals: Vital Signs Temp Pulse Resp BP Pulse Ox 03/20/24 11:47 137 H 18 122/68 95 03/20/24 10:11 98.0 F 121 H 18 127/87 100 Intake and Output 03/19/24 03/20/24 03/20/24 22:59 06:59 14:59 Other: Weight 65.771 kg Results CBC & Chem 7: 03/20/24 10:43 03/20/24 10:43 Labs: Abnormal Lab Results - Last 24 Hours (Table) 03/20/24 03/20/24 03/20/24 Range/Units 10:35 10:43 10:43 RBC 1.57 L (4.30-5.90) m/uL Hgb 5.9 L* (13.0-17.5) gm/dL Hct 17.3 L* (39.0-53.0) % MCV 110.3 H (80.0-100.0) fL MCH 38.0 H (25.0-35.0) pg RDW 17.2 H (11.5-15.5) % Plt Count 149 L (150-450) k/uL Metamyelocytes # (Man) 0.08 H (0) k/uL Myelocytes # (Manual) 0.08 H (0) k/uL Macrocytosis Marked A APTT 21.2 L (22.0-30.0) sec Sodium (137-145) mmol/L Carbon Dioxide (22-30) mmol/L BUN (9-20) mg/dL Glucose (74-99) mg/dL Calcium (8.4-10.2) mg/dL Alkaline Phosphatase (38-126) U/L Total Protein (6.3-8.2) g/dL Albumin (3.5-5.0) g/dL Crossmatch See Detail 03/20/24 Range/Units 10:43 RBC (4.30-5.90) m/uL Hgb (13.0-17.5) gm/dL Hct (39.0-53.0) % MCV (80.0-100.0) fL MCH (25.0-35.0) pg RDW (11.5-15.5) % Plt Count (150-450) k/uL Metamyelocytes # (Man) (0) k/uL Myelocytes # (Manual) (0) k/uL Macrocytosis APTT (22.0-30.0) sec Sodium 133 L (137-145) mmol/L Carbon Dioxide 20 L (22-30) mmol/L BUN 49 H (9-20) mg/dL Glucose 145 H (74-99) mg/dL Calcium 8.2 L (8.4-10.2) mg/dL Alkaline Phosphatase 37 L (38-126) U/L Total Protein 4.9 L (6.3-8.2) g/dL Albumin 3.1 L (3.5-5.0) g/dL Crossmatch
[2024-03-20] MEDS: MORPHINE SULFATE 4 MG/ML SYRINGE IV PRN (12:47)
[2024-03-20] MEDS: SODIUM CHLORIDE 0.9% 1,000 ML IV SCH (12:48)
--- NOTE | 2024-03-20 14:14 | P.CONS ---
History of Present Illness - Reason for Consult Consult date: 03/20/24 GI bleed Requesting physician: Magdaleno Cano - Chief Complaint Hematemesis - History of Present Illness On this a pleasant 49-year-old male with a history of regular alcohol use drink a pint or more a day 5 days a week or more for several years. He presented to the emergency department today with complaints of vomiting blood and blood per rectum. He states Tuesday night or Tuesday he ate some medicine following that was not feeling that great. Yesterday he went to work and was feeling very weak and had to lay down for about 4 hours at work before he could go home. Once he got home he started having bloody emesis states that he felt like he large basin. States it was more of a bright red. He also had a bloody bowel movement which she states was bright red 7 AM this morning. He has not had any further vomiting or blood per rectum since coming to the hospital. States he had no phone available yesterday so he is not able to call EMS or call anyone to bring him to the hospital. Denies any previous history of GI bleed. Does state that he has a history of an ulcer about 15 years ago. Denies any anticoagulation or regular NSAID use. He has having abdominal pain, no further nausea or vomiting at this time. Hemoglobin 5.9 on admission Review of Systems REVIEW OF SYSTEMS: CARDIOPULMONARY: No chest pain or shortness of breath. Gastrointestinal: Abdominal pain. Nausea and vomiting. Hematemesis, bright red blood per rectum. GENITOURINARY: No dysuria or hematuria. MUSCULOSKELETAL: Reports normal range of motion. SKIN: No rashes. No jaundice. ENDOCRINE: No chills, fevers. No excessive weight gain or loss. No polydipsia or polyuria. PSYCHIATRIC: Unremarkable. EtOH abuse. NEUROLOGY: No change in mental status. Dizziness. ENT: Vision unremarkable. CONSTITUTIONAL: No recent weight loss. No fever, chills, night sweats. Weakness. Past Medical History Past Medical History: No Reported History Additional Past Medical History / Comment(s): head injury, stomach ulcer 15 years ago History of Any Multi-Drug Resistant Organisms: None Reported Past Surgical History: Orthopedic Surgery Additional Past Surgical History / Comment(s): fingers/hand, right shoulder, right leg, right collarbone, right ankle Past Anesthesia/Blood Transfusion Reactions: No Reported Reaction Past Psychological History: No Psychological Hx Reported Smoking Status: Current every day smoker Past Alcohol Use History: Abuse, Daily Past Drug Use History: Cocaine, Opiates, Prescription Drug Abuse - Past Family History family Additional Family Medical History / Comment(s): Diabetes and heart disease in his father Medications and Allergies Home Medications Medication Instructions Recorded Confirmed Type Ibuprofen [Motrin] 600 mg PO Q6HR PRN 30 Days #120 tab 01/26/23 03/20/24 Rx Allergies Allergy/AdvReac Type Severity Reaction Status Date / Time No Known Allergies Allergy Verified 03/20/24 11:53 Physical Exam Vitals: Vital Signs Temp Pulse Resp BP Pulse Ox 03/20/24 13:33 98.2 F 89 18 122/80 99 03/20/24 13:13 98.7 F 82 16 119/75 95 03/20/24 13:00 97.7 F 101 H 18 107/57 97 03/20/24 11:47 137 H 18 122/68 95 03/20/24 10:11 98.0 F 121 H 18 127/87 100 Intake and Output 03/19/24 03/20/24 03/20/24 22:59 06:59 14:59 Intake Total 0 Balance 0 Intake: Blood Product 0 Rc Pheresis As-3 Unit 0 [id number] Other: Weight 65.771 kg General appearance: The patient is alert, oriented, appears in no acute distress. HET: Head is normocephalic and atraumatic. Conjunctiva pink. Sclera anicteric. Neck: Supple without lymphadenopathy. Trachea midline. Heart: Regular. Lungs: Equal expansion, normal respiratory effort. Abdomen: Soft, diffuse abdominal tenderness greater in epigastric region, nondistended. Skin: No rashes. No jaundice. Extremities: Normal skin color and turgor. No pedal edema. Neurological: No focal deficits. Alert and oriented x3. Results CBC & Chem 7: 03/20/24 10:43 03/20/24 10:43 Labs: Abnormal Lab Results - Last 24 Hours (Table) 03/20/24 03/20/24 03/20/24 Range/Units 10:35 10:43 10:43 RBC 1.57 L (4.30-5.90) m/uL Hgb 5.9 L* (13.0-17.5) gm/dL Hct 17.3 L* (39.0-53.0) % MCV 110.3 H (80.0-100.0) fL MCH 38.0 H (25.0-35.0) pg RDW 17.2 H (11.5-15.5) % Plt Count 149 L (150-450) k/uL Metamyelocytes # (Man) 0.08 H (0) k/uL Myelocytes # (Manual) 0.08 H (0) k/uL Macrocytosis Marked A APTT 21.2 L (22.0-30.0) sec Sodium (137-145) mmol/L Carbon Dioxide (22-30) mmol/L BUN (9-20) mg/dL Glucose (74-99) mg/dL Calcium (8.4-10.2) mg/dL Alkaline Phosphatase (38-126) U/L Total Protein (6.3-8.2) g/dL Albumin (3.5-5.0) g/dL Crossmatch See Detail 03/20/24 Range/Units 10:43 RBC (4.30-5.90) m/uL Hgb (13.0-17.5) gm/dL Hct (39.0-53.0) % MCV (80.0-100.0) fL MCH (25.0-35.0) pg RDW (11.5-15.5) % Plt Count (150-450) k/uL Metamyelocytes # (Man) (0) k/uL Myelocytes # (Manual) (0) k/uL Macrocytosis APTT (22.0-30.0) sec Sodium 133 L (137-145) mmol/L Carbon Dioxide 20 L (22-30) mmol/L BUN 49 H (9-20) mg/dL Glucose 145 H (74-99) mg/dL Calcium 8.2 L (8.4-10.2) mg/dL Alkaline Phosphatase 37 L (38-126) U/L Total Protein 4.9 L (6.3-8.2) g/dL Albumin 3.1 L (3.5-5.0) g/dL Crossmatch Comments: CT abdomen pelvis with contrast reports no acute abdominal pelvic process. Nonobstructive punctuate bilateral renal calculi Assessment and Plan (1) GI bleed Narrative/Plan: 49-year-old with a history of alcohol abuse presenting with weakness and hematemesis as well as complaints of bright red blood per rectum. History of daily alcohol use pint or more day for several years. Previous history of ulcer not on any anticoagulation or NSAID. Need to consider possible esophageal varices in light of history of alcoholism and possible portal hypertension. Also need to consider possible peptic ulcer disease or other possible etiologies. Continue with symptomatic and supportive care with blood transfusion, plan for upper endoscopy. Current Visit: Yes Status: Acute Code(s): K92.2 - GASTROINTESTINAL HEMORRHAGE, UNSPECIFIED SNOMED Code(s): 79973002 (2) Hematemesis Current Visit: Yes Status: Acute Code(s): K92.0 - HEMATEMESIS SNOMED Code(s): 6890381 (3) ETOH abuse Current Visit: No Status: Acute Code(s): F10.10 - ALCOHOL ABUSE, UNCOMPLICATED SNOMED Code(s): 66552907 Plan: 1. Continue symptomatic and supportive care 2. Daily CBC, transfuse for hemoglobin less than 7 3. Agree with blood transfusion 4. Protonix 40 mg daily 5. Keep n.p.o., except for meds and ice chips 6. Alcohol abstinence, discussed importance with patient 7. Monitor for alcohol withdrawal, recommend CIWA protocol 8. N.p.o. after midnight 9. Plan for upper endoscopy tomorrow Thank you for this consultation, we will continue to follow. Dr. Sonam Gastelum I agree with the dictator's note, documented as a scribe by Tamanna Castellanos.
[2024-03-20] MEDS: PANTOPRAZOLE 40 MG/10 ML VIAL IVP SCH (22:12)
[2024-03-20] MEDS ORDERED: MELATONIN 5 MG TABLET PO PRN (22:25)
[2024-03-20 22:30] LABS: Anisocytosis Moderate; MCH 34.2 pg (25.0-35.0); MCHC 33.8 g/dL (31.0-37.0); Mean Platelet Volume 9.2; Platelet Count 100 k/uL (150-450); RBC 1.94 m/uL (4.30-5.90); RDW 21.6 % (11.5-15.5); WBC 5.6 k/uL (3.8-10.6)
[2024-03-20 22:47] LABS: HCT 19.7 % (39.0-53.0); HGB 6.6 gm/dL (13.0-17.5)
[2024-03-20 22:48] LABS: MCV 101.4 fL (80.0-100.0); Macrocytosis Marked
[2024-03-20] MEDS: ARTIFICIAL TEARS-HYPROMELLOSE DROPS 15 ML BTL BOTH EYES PRN (23:05)
[2024-03-20] MEDS: ZOLPIDEM 5 MG TAB PO PRN (23:05)
[2024-03-21 03:06] VITALS: TEMP 98.3
[2024-03-21] MEDS ORDERED: LIDOCAINE 1% INJ 10MG/ML (20 ML MDV) ONE (07:01)
[2024-03-21] MEDS ORDERED: PROPOFOL 10 MG/ML 20 ML VIAL IV ONE (07:01)
--- NOTE | 2024-03-21 07:14 | P.PCN ---
Date of Procedure: 03/21/24 Procedure(s) Performed: BRIEF HISTORY: Patient is a 49-year-old, pleasant, white male admitted to hospital with acute upper GI bleed. Had multiple episodes of hematemesis. Hemoglobin was down to 5 g/dL and received total of 3 and so PRBC transfusion. History of peptic ulcer disease in the past. History of heavy alcohol abuse. He is scheduled for an upper endoscopy to evaluate further. PROCEDURE PERFORMED: Esophagogastroduodenoscopy with biopsy. PREOPERATIVE DIAGNOSIS: Acute upper GI bleed. IV sedation per anesthesia. PROCEDURE: After informed consent was obtained, the patient was brought into the endoscopy unit. IV sedation was administered by Anesthesia under continuous monitoring. Initially the Olympus GIF-140 video endoscope was inserted into the mouth. Esophagus intubated without any difficulty. It was gradually advanced into the stomach and duodenum and carefully examined. The second part of the duodenum appeared normal. In the bulb of the duodenum there was severe duodenitis and a 1 cm clean-based duodenal ulcer with no active bleeding. The scope at this time was withdrawn to the stomach, adequately insufflated with air, and upon careful examination, mucosa of the antrum had 2 small superficial ulcerations measuring 5 mm in size that was biopsied. No active bleeding noted. There were scattered erosions in the antrum., body, cardia and the fundus appeared normal. The scope was then withdrawn into the esophagus. The GE junction was located at 39 cm from the incisors. The esophagus appeared normal. There were no erosions or ulcerations seen and the patient tolerated the procedure well. IMPRESSION: 1. 1 cm clean-based duodenal bulbar ulcer with severe duodenitis. 2. 5 mm x 2 antral ulcerations with clean base and no active bleeding 3. Antral gastritis. RECOMMENDATIONS: The findings of this examination were discussed with the patient. Continue with Protonix 40 mg twice daily. Avoid NSAIDs. Monitor CBC daily. Start on iron supplements. Advance to regular diet.
[2024-03-21] MEDS: IV FLUID CONTINUATION 1,000 ML IV ONE (07:16)
[2024-03-21 08:32] LABS: Anisocytosis Moderate; HCT 22.5 % (39.0-53.0); HGB 7.5 gm/dL (13.0-17.5); MCH 33.6 pg (25.0-35.0); MCHC 33.4 g/dL (31.0-37.0); MCV 100.5 fL (80.0-100.0); Macrocytosis Moderate; Mean Platelet Volume 8.4; Platelet Count 119 k/uL (150-450); RBC 2.24 m/uL (4.30-5.90); RDW 21.3 % (11.5-15.5); WBC 4.5 k/uL (3.8-10.6)
[2024-03-21 08:34] LABS: Prothrombin Time 10.8 sec (10.0-12.5)
[2024-03-21] MEDS: DOCUSATE 100 MG CAP PO SCH (08:37)
[2024-03-21] MEDS: FERROUS SULFATE 325 MG TAB PO SCH (08:37)
[2024-03-21 08:46] LABS: African American GFR (CKD) >90 (>60 ml/min/1.73 sqM); Anion Gap 2 mmol/L; Blood Urea Nitrogen 25 mg/dL (9-20); Carbon Dioxide 28 mmol/L (22-30); Chloride 103 mmol/L (98-107); Glucose 103 mg/dL (74-99); Non-African American GFR(CKD) >90 (>60 ml/min/1.73 sqM); Potassium 3.8 mmol/L (3.5-5.1); Sodium 133 mmol/L (137-145)
[2024-03-21] MEDS ORDERED: PANTOPRAZOLE 40 MG/10 ML VIAL IVP SCH (09:00)
[2024-03-21 11:37] VITALS: BMI 18.4
[2024-03-21 12:19] VITALS: BP 90/54; PULSE 88; RESP 16
--- NOTE | 2024-03-21 14:19 | P.PN ---
Progress Note - Text Progress Note Date: 03/21/24 Patient had upper endoscopy today, see endoscopy report. He is no longer having any bleeding, no nausea or vomiting. He is tolerating regular diet. Abdominal pain improved. Patient is cleared from gastroenterology for discharge. Continue Protonix 40 mg twice daily, iron and stool softener. Prescription sent to pharmacy. Follow-up in 1 to [address] Sonam Gastelum I agree with the dictator's note, documented as a scribe by Tamanna Castellanos.
--- NOTE | 2024-03-21 16:05 | P.DS ---
Providers Date of admission: 03/20/24 12:07 Attending physician: Richard Hughes Consults: 03/20/24 11:22 Consult Physician Routine Consulting Provider: Laura Gastelum Consult Reason/Comments: gi bleed Do you want consulting provider notified?: Yes Primary care physician: Stated None Hospital Course: Hospital Course: Patient is a 49-year-old male who presented for bright red blood per rectum, hematemesis, and epigastric pain. He has a history of alcohol abuse and daily ibuprofen. His hemoglobin on admission was 5.9 and he received 3 units of PRBCs and his hemoglobin improved to 7.5. Gastroenterology was consulted and he underwent EGD with biopsy which revealed: 1 cm clean-based duodenal bulbar ulcer with severe duodenitis, 5 mm x 2 antral ulcerations with clean base and no active bleeding, and antral gastritis. Patient was able to tolerate a regular diet. He is no longer having any bleeding, nausea, or vomiting. His abdominal pain has improved. Gastroenterology has cleared him for discharge. He is hemodynamically stable for discharge. On discharge patient is to continue Protonix 40 mg twice daily, iron, and stool softener as prescribed. Patient is to follow-up with PCP within 1 to 2 days. Patient is to follow-up with gastroenterology within 1-2 weeks. Final Diagnosis: #. Duodenal bulbar ulcer #. Duodenitis #. Antral ulcerations without active bleeding #. Gastritis Physical examination: Vital signs reviewed General: No acute distress Derm: No unusual rashes/lesions, warm Head: Atraumatic normocephalic, symmetric Eyes: EOMI, no lid lag, anicteric sclera, pupils equal round reactive to light ENT: Nose and ears atraumatic Neck: No cervical lymphadenopathy, trachea midline, supple Mouth: Mucous membranes moist Cardiovascular: S1S2 present, regular rate and rhythm, no murmurs/rubs/gallops Lungs: CTA bilateral, no rhonchi, no rales, no accessory muscle use Abdominal: Soft, nontender to palpation, no guarding Ext: Muscle strength 5 out of 5 in all 4 extremities grossly, no gross muscle atrophy, no edema Neuro: CN II-XI grossly intact, no gross focal neuro deficits Psych: Alert, oriented, appropriate affect and mood Dr. Chrissy MD I have performed a history and physical examination and medical decision making of this patient, discussed the same with the the resident, and agree with the assessment and plan as written. I performed brief physical exam. Patient Condition at Discharge: Good Plan - Discharge Summary New Discharge Prescriptions: New Pantoprazole Sodium [Protonix] 40 mg PO BID #60 tab Docusate [Colace] 100 mg PO DAILY #30 cap Ferrous Sulfate [Iron (65 MG Elemental)] 325 mg PO BID-W/MEALS #60 tab Discontinued Ibuprofen [Motrin] 600 mg PO Q6HR PRN 30 Days #120 tab PRN Reason: Pain Discharge Medication List Docusate [Colace] 100 mg PO DAILY #30 cap 03/21/24 [Rx] Ferrous Sulfate [Iron (65 MG Elemental)] 325 mg PO BID-W/MEALS #60 tab 03/21/24 [Rx] Pantoprazole Sodium [Protonix] 40 mg PO BID #60 tab 03/21/24 [Rx] Follow up Appointment(s)/Referral(s): Laura Gastelum MD [STAFF PHYSICIAN] - 2 Weeks None,Stated [Primary Care Provider] - 1-2 days Patient Instructions/Handouts: Gastrointestinal Bleeding (DC) Discharge/Stand Alone Forms: AA Meetings [place], Community Resources, Outpatient Counseling, Inp Substance Abuse Facilities, Area PCPs Discharge Disposition: HOME SELF-CARE
== END 2024-03-21 16:25 | disposition home or self-care (01) | DRG 241 ==
LOC: EC 10:04 → 3SCARD 12:07
PROVIDERS: ADMIT Hospitalist; ATTEND Hospitalist
PROC: 30233N1 Transfusion of Nonautologous Red Blood Cells into Peripheral Vein, Percutaneous Approach (ICD-10-PCS; 2024-03-20)
PROC: 0DB78ZX Excision of Stomach, Pylorus, Via Natural or Artificial Opening Endoscopic, Diagnostic (ICD-10-PCS; principal; 2024-03-21 08:05)
DX: K26.4 Chronic or unspecified duodenal ulcer with hemorrhage (principal); K25.9 Gastric ulcer, unspecified as acute or chronic, without hemorrhage or perforation; F17.200 Nicotine dependence, unspecified, uncomplicated; F14.11 Cocaine abuse, in remission; F11.11 Opioid abuse, in remission; Z28.310 Unvaccinated for COVID-19; Z28.21 Immunization not carried out because of patient refusal; K29.70 Gastritis, unspecified, without bleeding; F10.10 Alcohol abuse, uncomplicated; E87.1 Hypo-osmolality and hyponatremia; E86.1 Hypovolemia; Z79.899 Other long term (current) drug therapy; S09.90XD Unspecified injury of head, subsequent encounter; K29.81 Duodenitis with bleeding
CPT/HCPCS: 36415; 43239; 74177; 80048; 80053; 83690; 85025; 85027; 85610; 85730; 86850; 86900; 86901; 86920; 88305; 88342; 93005; 96374; 96375; 96376; 99291